=== PATIENT | female | born 1935 | race Caucasian/White ===

== ENCOUNTER 2016-10-31 14:39 | Inpatient (IN) | payer MEDICARE ==
[2016-10-31] MEDS ORDERED: SODIUM CHLORIDE 0.9% 500 ML IV STA (14:47)
[2016-10-31] MEDS ORDERED: MORPHINE SULFATE 4 MG/ML SYRINGE IV STA (14:47)
[2016-10-31] MEDS ORDERED: IV VANCOMYCIN PER PHARMACY 1 EACH MISC MISCELLANE PRN (14:47)
[2016-10-31] MEDS ORDERED: SODIUM CHLORIDE 0.9% 1,000 ML IV STA ×2 (14:47)
--- NOTE | 2016-10-31 15:04 | ED ---
General Adult HPI - General Stated complaint: fall Source: RN notes reviewed, old records reviewed - History of Present Illness Initial comments: This is a 81-year-old female to the ER for evaluation. The patient comes here for evaluation of bilateral lower extremity infection, pus or drainage, and follow-up. Weakness. Neighbors concern over patient's general well being and general activity level - Related Data Home Medications Medication Instructions Recorded Confirmed No Known Home Medications [No 10/31/16 10/31/16 Known Home Medications] Allergies Allergy/AdvReac Type Severity Reaction Status Date / Time No Known Allergies Allergy Verified 10/31/16 16:29 Review of Systems ROS Statement: Those systems with pertinent positive or pertinent negative responses have been documented in the HPI. ROS Other: All systems not noted in ROS Statement are negative. Past Medical History Past Medical History: Pneumonia Additional Past Medical History / Comment(s): prolapsed rectum-since january 2003 , leg sores since 2002 History of Any Multi-Drug Resistant Organisms: None Reported Past Surgical History: Hysterectomy Past Anesthesia/Blood Transfusion Reactions: No Reported Reaction Past Psychological History: No Psychological Hx Reported Smoking Status: Former smoker Past Alcohol Use History: None Reported Past Drug Use History: None Reported General Exam Limitations: altered mental status General appearance: alert, anxious, lethargic, in distress, cachectic Head exam: Present: atraumatic, normocephalic, normal inspection Eye exam: Present: normal appearance, PERRL, EOMI. Absent: scleral icterus, conjunctival injection, periorbital swelling ENT exam: Present: normal exam, mucous membranes moist Neck exam: Present: normal inspection. Absent: tenderness, meningismus, lymphadenopathy Respiratory exam: Present: normal lung sounds bilaterally. Absent: respiratory distress, wheezes, rales, rhonchi, stridor Cardiovascular Exam: Present: regular rate, normal rhythm, normal heart sounds. Absent: systolic murmur, diastolic murmur, rubs, gallop, clicks GI/Abdominal exam: Present: soft, normal bowel sounds. Absent: distended, tenderness, guarding, rebound, rigid Extremities exam: Present: normal inspection, full ROM, normal capillary refill. Absent: tenderness, pedal edema, joint swelling, calf tenderness Back exam: Present: normal inspection Neurological exam: Present: alert, oriented X3, CN II-XII intact Psychiatric exam: Present: normal affect, normal mood Skin exam: Present: warm, dry, intact, normal color. Absent: rash Course Vital Signs 10/31/16 10/31/16 10/31/16 15:39 16:40 17:03 Temperature 96.2 F L Pulse Rate 108 H 96 91 Respiratory 16 18 18 Rate Blood Pressure 122/52 96/55 138/66 O2 Sat by Pulse 96 99 Oximetry - Reevaluation(s) Reevaluation #1: 10/31/16 17:40 Patient with no real clinical improvement Reevaluation #2: 10/31/16 17:43 Patient had been refusing all treatment for both lower extremity infections as well as all medical issues. Medical Decision Making - Medical Decision Making He female here for evaluation of weakness, fall. Patient severely cachectic malnourished, patient does have rectal prolapse on exam, severe. Patient also noted to be dehydrated with acute renal failure, will be admitted for IV hydration - Lab Data Result diagrams: 10/31/16 15:25 10/31/16 15:25 - Radiology Data Radiology results: report reviewed (X-ray pelvis, x-ray abdominal series the chest is negative for acute disease), image reviewed Disposition Clinical Impression: Rectal prolapse, Fall, Weakness, ARF (acute renal failure) Disposition: ADMITTED IP TO THIS [facility] Condition: Serious
[2016-10-31] MEDS ORDERED: VANCOMYCIN 1,500 MG in SODIUM CHLORIDE 0.9% 250 ML IVPB STA (15:05)
[2016-10-31 15:42] LABS: Basophils # (A) 0.1 k/uL (0-0.2); Basophils % (A) 0 %; CH 31.1; CHCM 33.4; Eosinophils % (A) 0 %; HDW 2.52; HGB 13.8 gm/dL (11.4-16.0); Luc % (Auto) 1; Lymphocytes # (A) 0.5 k/uL (1.0-4.8); Lymphocytes % (A) 4 %; MCH 29.3 pg (25.0-35.0); MCHC 31.4 g/dL (31.0-37.0); MCV 93.3 fL (80.0-100.0); Mean Platelet Volume 7.2; Monocytes # (A) 0.7 k/uL (0-1.0); Monocytes % (A) 5 %; Neutrophils # (A) 12.1 k/uL (1.3-7.7); Neutrophils % (A) 90 %; RBC 4.72 m/uL (3.80-5.40); RDW 13.3 % (11.5-15.5); WBC 13.4 k/uL (3.8-10.6); WBC (Perox) 14.25
[2016-10-31 15:55] LABS: Calcium 9.2 mg/dL (8.4-10.2); Magnesium 2.4 mg/dL (1.6-2.3); Partial Thromboplastin Time 24.4 sec (22.0-30.0); Phosphorous 5.9 mg/dL (2.5-4.5); Prothrombin Time 10.3 sec (9.0-12.0); Total Bilirubin 0.3 mg/dL (0.2-1.3); Total Protein 6.9 g/dL (6.3-8.2)
[2016-10-31 16:07] LABS: Creatine Kinase 436 U/L (30-135)
[2016-10-31 16:19] LABS: Troponin I <0.012 ng/mL (0.000-0.034)
[2016-10-31 16:21] LABS: Creatine Kinase MB 12.8 ng/mL (0.0-2.4)
--- NOTE | 2016-10-31 17:08 | XR ---
EXAMINATION TYPE: XR abdomen acute w cxr DATE OF EXAM: 10/31/2016 4:32 PM COMPARISON: NONE HISTORY: Abdominal pain TECHNIQUE: Single view of the chest and 2 views of the abdomen are submitted. FINDINGS: There is no sign of intestinal obstruction or pneumoperitoneum. Fecal pattern is normal. Heart is enl arged. There is no heart failure. There is coarsening of interstitial markings. IMPRESSION: Mild bony fibrosis. Nonacute abdomen.
--- NOTE | 2016-10-31 17:09 | XR ---
EXAMINATION TYPE: XR pelvis AP view DATE OF EXAM: 10/31/2016 4:32 PM COMPARISON: NONE HISTORY: Falls. Pain. TECHNIQUE: Single view FINDINGS: Bones are osteopenic. Pelvic ring is intact. There is spurring of the right femoral head. S acroiliac joints are normal. 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 No fracture seen.
[2016-10-31] MEDS ORDERED: MORPHINE SULFATE 4 MG/ML SYRINGE IVP PRN (17:45)
[2016-10-31] MEDS ORDERED: LORazepam 2 MG/ML SYRINGE IV PRN (17:45)
[2016-10-31 17:57] LABS: Amorphous Sediment,Urine Occasional /hpf; Appearance,Urine Cloudy (Clear); Bacteria,Urine Many /hpf; Bilirubin,Urine Negative (Negative); Glucose,Urine (UA) Negative (Negative); Ketones,Urine Negative (Negative); Leukocyte Esterase,Urine Moderate (Negative); Mucus,Urine Moderate /hpf; Nitrite,Urine Negative (Negative); Particle Count 58057; Protein,Urine Trace (Negative); RBC,Urine 2 /hpf (0-5); Specific Gravity,Urine 1.014 (1.001-1.035); UA Billing (MACRO vs. MICRO) MICRO; Urobilinogen,Urine <2.0 mg/dL (<2.0); WBC,Urine 24 /hpf (0-5)
--- NOTE | 2016-11-01 10:17 | P.GSCN ---
History of Present Illness History of present illness: 81-year-old white female, patient has been admitted to [facility] patient was brought into the hospital hospital by the neighbor's she has marked cellulitis and redness of both lower extremity for a long period of time out into the issue she told me that she has been refusing all the doctors for treatment patient is a poor historian Past history patient has history of pneumonia in the past she also has a prolapsed rectum since 2002 Personal history history of smoking in the past Patient went was seen in her in her room she is been complaining of pain in both lower extremity Neck examination neck is supple no bruit appreciated Chest examination chest is clear auscultation first and second sound normal Abdomen soft nontender Vascular examination femorals are 1+ patient has a marked cellulitis of the lower extremity involving both lower legs and there is a marked redness and superficial ulceration noted bilateral Plan is a we will have a opinion from infectious disease patient will be needing possible amputation of the toes and possible major amputation we will discuss with the family in the meantime continue with Past Medical History Past Medical History: Pneumonia Additional Past Medical History / Comment(s): prolapsed rectum-since january 2003 , leg sores since 2002 History of Any Multi-Drug Resistant Organisms: None Reported Past Surgical History: Hysterectomy Past Anesthesia/Blood Transfusion Reactions: No Reported Reaction Past Psychological History: No Psychological Hx Reported Smoking Status: Former smoker Past Alcohol Use History: None Reported Past Drug Use History: None Reported Medications and Allergies Home Medications Medication Instructions Recorded Confirmed Type No Known Home Medications [No 10/31/16 10/31/16 History Known Home Medications] Allergies Allergy/AdvReac Type Severity Reaction Status Date / Time No Known Allergies Allergy Verified 10/31/16 16:29 Surgical - Exam Vital Signs Temp Pulse Resp BP 96.2 F L 108 H 16 122/52 10/31/16 15:39 10/31/16 15:39 10/31/16 15:39 10/31/16 15:39 Results - Labs 10/31/16 15:25 10/31/16 15:25 Abnormal Lab Results - Last 24 Hours (Table) 10/31/16 10/31/16 10/31/16 Range/Units 15:25 15:25 15:25 WBC 13.4 H (3.8-10.6) k/uL Plt Count 506 H (150-450) k/uL Neutrophils # 12.1 H (1.3-7.7) k/uL Lymphocytes # 0.5 L (1.0-4.8) k/uL Sodium 136 L (137-145) mmol/L Carbon Dioxide 18 L (22-30) mmol/L BUN 63 H (7-17) mg/dL Creatinine 1.40 H (0.52-1.04) mg/dL Glucose 101 H (74-99) mg/dL Phosphorus 5.9 H (2.5-4.5) mg/dL Magnesium 2.4 H (1.6-2.3) mg/dL AST 41 H (14-36) U/L Total Creatine Kinase 436 H (30-135) U/L CK-MB (CK-2) 12.8 H* (0.0-2.4) ng/mL Albumin 3.3 L (3.5-5.0) g/dL Urine Appearance (Clear) Urine Protein (Negative) Urine Blood (Negative) Ur Leukocyte Esterase (Negative) Urine WBC (0-5) /hpf Amorphous Sediment (None) /hpf Urine Bacteria (None) /hpf Hyaline Casts (0-2) /lpf Urine Mucus (None) /hpf 10/31/16 Range/Units 17:25 WBC (3.8-10.6) k/uL Plt Count (150-450) k/uL Neutrophils # (1.3-7.7) k/uL Lymphocytes # (1.0-4.8) k/uL Sodium (137-145) mmol/L Carbon Dioxide (22-30) mmol/L BUN (7-17) mg/dL Creatinine (0.52-1.04) mg/dL Glucose (74-99) mg/dL Phosphorus (2.5-4.5) mg/dL Magnesium (1.6-2.3) mg/dL AST (14-36) U/L Total Creatine Kinase (30-135) U/L CK-MB (CK-2) (0.0-2.4) ng/mL Albumin (3.5-5.0) g/dL Urine Appearance Cloudy H (Clear) Urine Protein Trace H (Negative) Urine Blood Small H (Negative) Ur Leukocyte Esterase Moderate H (Negative) Urine WBC 24 H (0-5) /hpf Amorphous Sediment Occasional H (None) /hpf Urine Bacteria Many H (None) /hpf Hyaline Casts 143 H (0-2) /lpf Urine Mucus Moderate H (None) /hpf Microbiology - Last 24 Hours (Table) 10/31/16 17:25 Urine Culture - Preliminary Urine,Voided Diabetes panel 10/31/16 Range/Units 15:25 Sodium 136 L (137-145) mmol/L Potassium 5.0 (3.5-5.1) mmol/L Chloride 103 (98-107) mmol/L Carbon Dioxide 18 L (22-30) mmol/L BUN 63 H (7-17) mg/dL Creatinine 1.40 H (0.52-1.04) mg/dL Glucose 101 H (74-99) mg/dL Calcium 9.2 (8.4-10.2) mg/dL AST 41 H (14-36) U/L ALT 32 (9-52) U/L Alkaline Phosphatase 76 (38-126) U/L Total Protein 6.9 (6.3-8.2) g/dL Albumin 3.3 L (3.5-5.0) g/dL Calcium panel 10/31/16 Range/Units 15:25 Calcium 9.2 (8.4-10.2) mg/dL Phosphorus 5.9 H (2.5-4.5) mg/dL Albumin 3.3 L (3.5-5.0) g/dL Pituitary panel 10/31/16 Range/Units 15:25 Sodium 136 L (137-145) mmol/L Potassium 5.0 (3.5-5.1) mmol/L Chloride 103 (98-107) mmol/L Carbon Dioxide 18 L (22-30) mmol/L BUN 63 H (7-17) mg/dL Creatinine 1.40 H (0.52-1.04) mg/dL Glucose 101 H (74-99) mg/dL Calcium 9.2 (8.4-10.2) mg/dL Adrenal panel 10/31/16 Range/Units 15:25 Sodium 136 L (137-145) mmol/L Potassium 5.0 (3.5-5.1) mmol/L Chloride 103 (98-107) mmol/L Carbon Dioxide 18 L (22-30) mmol/L BUN 63 H (7-17) mg/dL Creatinine 1.40 H (0.52-1.04) mg/dL Glucose 101 H (74-99) mg/dL Calcium 9.2 (8.4-10.2) mg/dL Total Bilirubin 0.3 (0.2-1.3) mg/dL AST 41 H (14-36) U/L ALT 32 (9-52) U/L Alkaline Phosphatase 76 (38-126) U/L Total Protein 6.9 (6.3-8.2) g/dL Albumin 3.3 L (3.5-5.0) g/dL
[2016-11-01] MEDS ORDERED: IV VANCOMYCIN PER PHARMACY 1 EACH MISC MISCELLANE PRN (10:52)
[2016-11-01 12:56] VITALS: BMI 16.5
--- NOTE | 2016-11-01 12:57 | CONS ---
DATE OF CONSULTATION: 10/31/2016 REASON FOR CONSULTATION: Rectal prolapse. HISTORY: The patient is an 81-year-old female who was brought in to the emergency room by family for recurrent falling. She reportedly fell once earlier in the week and did land on her rectum per daughter. She had fallen this morning and then when the daughter went to recheck on her, she had fallen again this afternoon and so was brought into the emergency department. She has had known rectal prolapse for approximately 10 years. She has been seen by a surgeon in the past and has refused any surgery. Evidently the bowel functions have been normal for her. There has been no rectal bleeding. No complaints of abdominal pain. Past medical history includes the rectal prolapse, pneumonia, chronic cellulitis of the legs for which she has refused antibiotics in the past. PAST SURGICAL HISTORY: Hysterectomy. MEDICATIONS CURRENTLY: 1. Lorazepam p.r.n. 2. Vancomycin. 3. Morphine sulfate p.r.n. 4. She received a dose of ceftriaxone. ALLERGIES: None. SOCIAL: No tobacco or alcohol use. FAMILY HISTORY: Noncontributory. PHYSICAL EXAM: Elderly female; alert, in no distress, appears chronically ill, appears to have some significant stiffness in upper and lower extremities. She is afebrile. Pulse 91, respirations 18, blood pressure is 138/66. ABDOMEN: Soft, nontender. Positive bowel sounds. RECTAL: She has full-thickness rectal prolapse, approximately 8 cm to 10 cm in length with some superficial mucosal ulceration or trauma. No evidence of bleeding. Family says this is the normal state this has been for the last 10 years. ASSESSMENT: Rectal prolapse for which the patient has refused surgery in the past. PLAN: Notify us if the patient changes her mind about surgery. I did speak to the daughter and she states she knows her mother is not interested in any surgical intervention at this time.
--- NOTE | 2016-11-01 13:23 | XR ---
EXAMINATION TYPE: XR chest 1V DATE OF EXAM: 11/01/2016 1:02 PM COMPARISON: 10/31/2016 HISTORY: 81-year-old female cough, rule out pneumonia TECHNIQUE: Single frontal view of the chest is obtained. FINDINGS: Heart remains borderline enlarged. Atherosclerotic arch calcifications. Ulnar vasculature within norm al limits. Apical pleural-parenchymal scarring redemonstrated. Hyperinflation with diffuse interstiti al prominence. There is new right basilar opacity. No other consolidation seen. IMPRESSION: COPD with new right basilar opacity that could represent early infiltrate.
[2016-11-01] MEDS: SODIUM CHLORIDE 0.9% 1,000 ML IV SCH (13:44)
--- NOTE | 2016-11-01 15:17 | HP ---
DATE OF ADMISSION: 10/31/2016 Patient is an 81-year-old female who does not take any medications, was at one point of time last year was made hospice. Lives by herself, mostly bedbound and patient is unable to ambulate because of extensive infection of bilateral lower limbs and extensive cellulitis with extensive skin breakdown of bilateral lower limbs extending up to almost 2 cm below the knee bilaterally with redness and most of this infection is probably incurable and require extensive wound care, was brought in by the neighbors. Her son [place] [facility]. Patient has been apparently weak. She denied any fever, chills, cough. Patient is definitely significantly dehydrated. Patient was started on IV fluids and started on IV fluids. Patient is a poor historian but does give any good history. Does not appear to be significantly demented at this time. Very poor functionality. We are getting PT and OT to evaluate the patient as well and patient may need placement in a senior living or subacute rehabilitation. Patient was evaluated by Dr. Ernesto Quezada and Dr. Marisol Castro for wound care. On exam, the patient was having some diffuse abdominal nonspecific abdominal tenderness, abdominal ultrasound was done which was essentially negative. I will start her on Protonix. Patient is on vancomycin IV and patient was started on Unasyn as well to cover the gram-negatives which she might as well have. Review of systems pretty much limited except for those mentioned above. PAST MEDICAL HISTORY: Significant for pneumonias in the past. Patient at one point of time was made hospice, hysterectomy in the past. SOCIAL HISTORY: Former smoker. No other history is available. FAMILY HISTORY: Unknown. Not obtainable or relevant at this point of time. PHYSICAL EXAMINATION: VITAL SIGNS: Temperature 98.0, pulse of 94, respiratory rate of 16, blood pressure is 97/55, saturating at 97% on 2 liters of O2 nasal cannula. GENERAL: The patient is alert and oriented x3, not in any acute distress. Well developed, well nourished. HEENT: Pupils are round and equally reacting to light. EOMI. No scleral icterus. No conjunctival pallor. Normocephalic, atraumatic. No pharyngeal erythema. No thyromegaly. CARDIOVASCULAR: S1 and S2 present. No murmurs, rubs, or gallops. PULMONARY: Chest is clear to auscultation, no wheezing or crackles. ABDOMEN: As mentioned above. Patient has mild diffuse tenderness all over the abdomen and no rebound or rigidity. Patient abdomen is fairly soft. EXTREMITIES: Extremities as mentioned in the interval history. Bilateral extensive ulcerations of bilateral lower limbs. MUSCULOSKELETAL: No joint swelling or deformity. NEUROLOGICAL: Gross neurological examination did not reveal any focal deficits. SKIN: No rashes. LABORATORY DATA: CBC, CMP are abnormal for WBC count of 13,400, BUN of 60, creatinine is 1.4. Her baseline creatinine, because the patient is severely cachectic, which I failed to dictate earlier, should be around 0.2 and lactic acid is 1.6, urine is cloudy. Trace protein. Moderate leukocyte esterase. 24 WBC, hyaline casts. There is no chest x-ray but pelvic and abdominal x-ray no significant abnormality. I will obtain a chest x-ray to rule out any pneumonic process, although my suspicion is low for that. ASSESSMENT AND PLAN: 1. Extensive ulcerations of the bilateral lower limbs and cellulitis and sepsis secondary to that and patient was started on broad-spectrum antibiotics. Would cultures were obtained. Blood cultures were obtained. Infectious disease was already consulted, Dr. Quezada was consulted as well although conservative care is probably appropriate in her situation because of the poor functionality and I will discuss with the family members. 2. Anion gap metabolic acidosis secondary to probably lactic acidosis. 3. Acute renal failure secondary to intravascular volume depletion. Patient will be started on IV fluids. 4. Patient probably has symptomatic bacteria. 5. Thrombocytosis appears to be reactive secondary to sepsis and poor functionality. We will obtain PT and OT consultation. Patient will most probably will need placement in the subacute rehab or senior living.
[2016-11-01] MEDS: COLLAGENASE 250 UNIT/GM OINTMENT 30 GM TUBE TOPICAL SCH (15:20)
[2016-11-01] MEDS ORDERED: AMPICILLIN-SULBACTAM 3 GM in SODIUM CHLORIDE 0.9% 100 ML IVPB SCH (16:00)
--- NOTE | 2016-11-01 16:18 | CONS ---
DATE OF CONSULTATION: 11/01/2016 REASON FOR CONSULTATION: Lower extremity wound and cellulitis. HISTORY OF PRESENT ILLNESS: The patient is an 81 -year-old female who has been brought into the ER by the neighbors concerned regarding her care. The patient has decreased level of activity and apparently the patient did have a chronic wound on her right leg. The patient has been applying ointment / honey at home. The patient subsequently has been evaluated by the ER physician has been diagnosed with cellulitis and wound infection has been admitted to the hospital on Unasyn and Vanco. ID was consulted for further recommendation regarding antibiotic therapy. Patient at this time has been complaining of pain in leg but unable to characterize it further. She has been resisting changing her dressing also specific for what to apply , she denies any chest pain or shortness of breath or cough and no abdominal pain. Not a good historian . Most of the information has been obtained from review the chart and nursing staff. Patient has been evaluated by vascular surgery for possible amputation and recommended ID consultation. Apparently, the patient[place] later this evening per the R.N. Review of systems could not be reliably obtained. The positive points has been mentioned in the HPI. PAST MEDICAL HISTORY: Significant for pneumonia and a chronic nonhealing wound to the leg . PAST SURGICAL HISTORY: Hysterectomy. SOCIAL HISTORY: Remote history of smoking. No drinking or drug use. FAMILY HISTORY: Unobtainable. ALLERGIES: No known drug allergies. Medications currently include the patient is on: 1. Tylenol. 2. Unasyn. 3. Vancomycin. 4. Protonix. On examination, blood pressure is 95/55 with a pulse of 94, temperature 98. She is 97% on 2 liters nasal cannula. General description is an elderly female lying in bed in no distress. No tachypnea or accessory muscle of respiration use. HEENT examination shows no pallor or scleral icterus. Oral mucous membrane dry. NECK: Trachea central. No thyromegaly. LUNGS: Unlabored breathing. Clear to auscultation anteriorly. HEART: S1, S2 regular rate and rhythm. ABDOMEN: Soft, no tenderness. Right leg did have wounds on the dorsum of the right foot with some purulent material and some surrounding redness. Left leg with erythema and dry scaly skin. NEUROLOGICAL: The patient is weak however, orientation could not be determined. LABS: Hemoglobin is 13.3, WBC count 13.4 with a BUN of 53, creatinine 01.40. Urine has been positive. DIAGNOSTIC IMPRESSION AND PLAN: Patient with extensive wounds to the right leg with likely underlying ischemia in a patient with previous history of smoking with secondary cellulitis overall poor hygiene. In view of the extensive wounds, I clinically doubt medical therapy will be even to heal them up. The patient needs work-up, possibly angiogram to see the extent of her underlying periphral arterial disease, who is planning surgery, as far as the infection part, we will need to cover for the gram positive skin marcus. PLAN: 1. Vancomycin pharmacy to dose with a target trough of 15, watching kidney function closely and Unasyn will provide adequate coverage. 2. Will apply Santyl to the wound with slough tissue and moist dressing to the dry scaly skin. 3. Follow up on the clinical condition and cultures to further adjust the medication if needed. Thank you for this consultation. Will follow this patient along with you. LUBA
[2016-11-02] MEDS: SODIUM CHLORIDE 0.9% 1,000 ML IV SCH ×4 (01:35→11:17)
[2016-11-02] MEDS: ACETAMINOPHEN TAB 325 MG TAB PO PRN ×2 (02:12→08:39)
[2016-11-02] MEDS: AMPICILLIN-SULBACTAM 3 GM in SODIUM CHLORIDE 0.9% 100 ML IVPB SCH ×2 (05:22→18:12)
[2016-11-02 07:39] LABS: Non-African American GFR(MDRD) >60 (>60 ml/min/1.73 sqM)
[2016-11-02] MEDS: PANTOPRAZOLE 40 MG TABLET PO SCH (08:39)
--- NOTE | 2016-11-02 10:51 | FL ---
EXAMINATION TYPE: FL barium swallow w video DATE OF EXAM: 11/02/2016 10:15 AM COMPARISON: NONE HISTORY: Coughing at bedside modified barium swallow exam TECHNIQUE: Modified barium swallow FINDINGS: Silent aspiration was present with thin liquids. Patient swallowed large volumes during the exam. With the chin tuck method no aspiration was observed. No penetration was observed. Remaining c onsistencies were swallowed without aspiration or penetration. Note is made of residuals within the v allecula during the exam. Please see complete report forthcoming from the speech pathology department. 3 minutes 15 seconds of fluoroscopy time was provided for the procedure. IMPRESSION: 1. Aspiration with thin liquids. 2. Residuals within the vallecula.
[2016-11-02] MEDS: KETOROLAC 30 MG/ML 1 ML VIAL IVP PRN (11:27)
[2016-11-02] MEDS: COLLAGENASE 250 UNIT/GM OINTMENT 30 GM TUBE TOPICAL SCH (11:31)
[2016-11-02] MEDS ORDERED: VANCOMYCIN 750 MG in SODIUM CHLORIDE 0.9% 250 ML IVPB ONE (12:00)
--- NOTE | 2016-11-02 14:03 | PN ---
Patient is an 81-year-old admitted for bilateral lower limb extensive infection and extensive wounds, which are requiring amputation, but patient in the past declined and will continue with antibiotics today. Will discuss with the patient tomorrow. Extensive discussion of her overall goals of care and overall care with her son who is fortunately a physician and we are continuing with IV fluids, wound cultures. Dr. Jiménez was consulted. Patient was also treated for acute renal failure due to intravascular volume depletion from poor oral intact. After IV fluid hydration, patient improved significantly, clinically and his creatinine has come down from 1.4 to 0.9. Continue with IV fluid resuscitation. Patient failed swallow evaluation. Speech evaluated the patient and we are modifying the diet a little bit to soft diet and honey-thickened liquids. Patient is much more awake today. REVIEW OF SYSTEMS: CARDIOVASCULAR: No chest pain, no orthopnea, no PND, no palpitations. PULMONARY: Denied any shortness of breath. No cough or hemoptysis. GASTROINTESTINAL: No diarrhea, nausea or vomiting. No abdominal pain. Normoactive bowel sounds. NEUROLOGIC: No headaches, no weakness, no numbness. EXTREMITIES: Patient is complaining of severe pain. Patient's abdominal pain completely resolved. PHYSICAL EXAMINATION: VITAL SIGNS: Temperature 97.6, pulse of 66, respiratory rate of 16, blood pressure 90/37, saturating at 98% on room air. GENERAL: Patient is thin built, cachectic female. Alert and oriented x2 to 3. HEENT: Pupils are round and equally reacting to light. EOMI. No scleral icterus. No conjunctival pallor. Normocephalic, atraumatic. No pharyngeal erythema. No thyromegaly. CARDIOVASCULAR: S1 and S2 present. No murmurs, rubs, or gallops. PULMONARY: Chest is clear to auscultation, no wheezing or crackles. ABDOMEN: Soft, nontender, nondistended, normoactive bowel sounds. No palpable organomegaly. MUSCULOSKELETAL: No joint swelling or deformity. NEUROLOGICAL: Gross neurological examination did not reveal any focal deficits. SKIN: No rashes. EXTREMITIES: No significant change compared to yesterday. LABORATORY DATA: Only creatinine is available today, which is 0.9. ASSESSMENT AND PLAN: 1. Extensive ulcerations, bilateral lower limb cellulitis and infection and sepsis secondary to that. Antibiotics as mentioned above. Patient in the past declined amputation procedure. 2. Acute renal failure secondary to severe intravascular volume depletion, improved and will continue with IV fluids. 3. Possible asymptomatic bacteruria versus urinary tract infection, antibiotics she is on should cover that and Infectious Disease following the patient as well. 4. Thrombocytosis secondary to a reactive response from sepsis, poor functionality. 5 severe Protein carlorie malnutrition PLAN: As mentioned above. MTDD
--- NOTE | 2016-11-02 16:27 | PN ---
DATE OF SERVICE: 11/02/2016 REASON FOR FOLLOWUP: Bilateral lower extremity wound and cellulitis. INTERVAL HISTORY: The patient is afebrile. She has been breathing comfortably, hemodynamically stable. Still has pain on slight movement of her legs. She is unable to provide any history. On examination, blood pressure is 98/44 with a pulse of 66, temperature 97.6. She is 98% on 2 L nasal cannula. General description is an elderly female lying in bed in no distress. Examination of the right foot toes less slightly inflamed with the wound and some drainage on the dressing. Dressing could not be taken off because of the pain that is involved. LABS: Creatinine is 0.90. Blood cultures so far negative. DIAGNOSTIC IMPRESSION AND PLAN: Patient with a non-healing wound to her right leg which has been there for a couple of years now, as per the son, who provided most of the history. The patient also has significant history of smoking, likely arterial ulcer with some secondary cellulitis. Continue local wound care with the Santyl and antibiotic therapy in the form of vancomycin and Unasyn. Son was present at beside. All of his questions and concerns were answered. Overall prognosis remains poor. MTDD
[2016-11-03] MEDS: KETOROLAC 30 MG/ML 1 ML VIAL IVP PRN ×2 (00:57→09:08)
[2016-11-03] MEDS: SODIUM CHLORIDE 0.9% 1,000 ML IV SCH (04:10)
[2016-11-03] MEDS: AMPICILLIN-SULBACTAM 3 GM in SODIUM CHLORIDE 0.9% 100 ML IVPB SCH ×2 (05:45→17:14)
[2016-11-03 07:53] LABS: CH 29.9; CHCM 32.1; HCT 32.2 % (34.0-46.0); MCH 30.6 pg (25.0-35.0); MCHC 32.6 g/dL (31.0-37.0); MCV 93.9 fL (80.0-100.0); Mean Platelet Volume 6.7; RBC 3.43 m/uL (3.80-5.40); RDW 13.7 % (11.5-15.5); WBC 8.9 k/uL (3.8-10.6)
[2016-11-03 08:04] LABS: HGB 10.5 gm/dL (11.4-16.0)
[2016-11-03 08:16] LABS: Calcium 7.2 mg/dL (8.4-10.2); Potassium 3.9 mmol/L (3.5-5.1)
[2016-11-03] MEDS: VANCOMYCIN 750 MG in SODIUM CHLORIDE 0.9% 250 ML IVPB SCH (08:58)
[2016-11-03] MEDS: PANTOPRAZOLE 40 MG TABLET PO SCH (08:59)
[2016-11-03] MEDS: ACETAMINOPHEN TAB 325 MG TAB PO PRN (09:06)
[2016-11-03] MEDS: COLLAGENASE 250 UNIT/GM OINTMENT 30 GM TUBE TOPICAL SCH (09:09)
--- NOTE | 2016-11-03 10:35 | CDI ---
In responding to this query, please exercise your independent professional judgment. The [facility] Coding Staff and Clinical Documentation Specialists appreciate your assistance in clarifying documentation, maintaining compliance with coding guidelines, accurately documenting patients condition and capturing severity of illness. The fact that a question is asked does not imply that any particular answer is desired or expected. Communication forms are a method of clarifying documentation and are not made part of the Legal Health Record. Thank you in advance for your clarification. Last Revision, September 2015 Binu Starkey [address] [facility] [place] [address] Documentation Clarification Form Date: 11/03/2016 10:19:00 AM From: Lashae Sandoval Admit Date: 10/31/2016 3:09:00 PM Patient Name: Beatriz Call Visit Number: [id number] Dr. Gerardo Rasheed Patient is described as Cachectic per H&P and progress note. History/Risk Factors: Bedbound, unable to ambulate Extensive infection bilateral lower limbs Dehydrated Poor functionality Lives alone Clinical Indicators: Labs: albumin 3.3, total protein 6.9 Current BMI: 16.5 Lethargic, underweight per [employer] Per swallow eval: silent aspiration with thin liquids Treatment: Dietary Consult [place] Thick Liquids on regular diet PT/OT Consult Supplements to be ordered per resistance welder as diet advances In your professional opinion, can you please clarify if these findings signify one of the following conditions? Mild Protein-Calorie Malnutrition Moderate Protein-Calorie Malnutrition Severe Protein-Calorie Malnutrition Other condition, please specify Unable to determine Please document in your progress notes and discharge summary in order to capture severity of illness and risk of mortality. Include clinical findings that support your diagnosis. FYI: Press F11 to launch patient chart. Place X here if this finding has no clinical significance, is not applicable or if you are not able to provide any additional documentation. JOSE LUISD
[2016-11-03] MEDS: SODIUM CHLORIDE 0.45% 1,000 ML IV SCH (11:36)
--- NOTE | 2016-11-03 14:24 | PN ---
Patient is an 81-year-old year-old with bilateral lower extremity wounds and patient is declining any surgical intervention at this point. Patient is on broad-spectrum antibiotics, urine cultures are positive for E. coli and patient is on Zosyn and vancomycin at this point of time. I discussed with the patient regarding her overall goals of care and I discussed regarding going to a subacute rehabilitation and I will request one of the case mangers to have a talk with her regarding disposition to subacute rehabilitation. Patient cannot go home as she cannot take care of herself because of the poor functionality. REVIEW OF SYSTEMS: CARDIOVASCULAR: No chest pain, no orthopnea, no PND, no palpitations. PULMONARY: Denied any shortness of breath. No cough or hemoptysis. GASTROINTESTINAL: No diarrhea, nausea or vomiting. No abdominal pain. Normoactive bowel sounds. NEUROLOGIC: No headaches, no weakness, no numbness. Medications were reviewed and medication changes IV fluids will be changed to half-normal saline because of hypernatremia and hyperchloremia. PHYSICAL EXAMINATION: Temperature 97.8, pulse of 66, respiratory rate of 16, blood pressure is 94/51, saturating at 98% on 2 L of O2 by nasal cannula. GENERAL: Elderly female, alert and oriented x3. EXTREMITIES: No significant change compared to yesterday. HEENT: Pupils are round and equally reacting to light. EOMI. No scleral icterus. No conjunctival pallor. Normocephalic, atraumatic. No pharyngeal erythema. No thyromegaly. CARDIOVASCULAR: S1 and S2 present. No murmurs, rubs, or gallops. PULMONARY: Chest is clear to auscultation, no wheezing or crackles. ABDOMEN: Soft, nontender, nondistended, normoactive bowel sounds. No palpable organomegaly. MUSCULOSKELETAL: No joint swelling or deformity. NEUROLOGICAL: Gross neurological examination did not reveal any focal deficits. SKIN: No rashes. LABORATORY DATA: Significant ones, hemoglobin is 10.5 without any acute signs or symptoms of bleed and hemodilution effect. Sodium is 146 and chloride is 117, due to IV normal saline and creatinine is 1.08. ASSESSMENT AND PLAN: 1. Extensive ulcerations bilateral lower limb and cellulitis with sepsis secondary to that, which is improving. Patient is on broad-spectrum antibiotics. Conservative management and local wound care and Infectious Disease is following the patient and acute renal failure secondary to severe intravascular volume depletion. Continue with IV fluids and IV fluid changes as mentioned above. 2. Asymptomatic bacteria versus urinary tract infection. Antibiotics she is on should help with that thrombocytosis, which appears to be reactive in nature, leukocytosis improved. 3. A poor functionality and disposition status as mentioned above.
--- NOTE | 2016-11-03 23:19 | PN ---
DATE OF SERVICE: 11/03/2016 REASON FOR FOLLOWUP: Bilateral lower extremity wounds and cellulitis. INTERVAL HISTORY: The patient is afebrile. She seems to be slightly more awake and alert, breathing comfortably. No nausea, vomiting or any diarrhea. On examination, blood pressure is 109/55 with a pulse of 85, temperature 97.7. She is 93% on room air. General description is an elderly female lying in bed in no distress. RESPIRATORY SYSTEM: Unlabored breathing. Clear to auscultation anteriorly. HEART: S1, S2. Regular rate and rhythm. ABDOMEN: Soft. No tenderness. Leg wounds are currently dressed up. LABS: Hemoglobin 10.4, white count 8.9. Urine is showing E coli. Blood culture negative so far. DIAGNOSTIC IMPRESSION AND PLAN: Patient with bilateral lower extremity wounds and cellulitis, right more than the left, with underlying PAD. Patient at this time will continue her broad-spectrum antibiotics in the form of Unasyn and vancomycin. Obtain a vascular surgery evaluation. Continue with Santyl to the wound. Overall prognosis continues to be guarded. Continue supportive care.
[2016-11-04] MEDS: SODIUM CHLORIDE 0.45% 1,000 ML IV SCH ×2 (03:59→15:34)
[2016-11-04] MEDS: AMPICILLIN-SULBACTAM 3 GM in SODIUM CHLORIDE 0.9% 100 ML IVPB SCH ×2 (06:15→15:27)
[2016-11-04 07:56] LABS: CH 30.1; CHCM 32.7; HCT 34.4 % (34.0-46.0); HGB 10.9 gm/dL (11.4-16.0); MCH 29.2 pg (25.0-35.0); MCHC 31.6 g/dL (31.0-37.0); MCV 92.5 fL (80.0-100.0); Mean Platelet Volume 6.4; RBC 3.71 m/uL (3.80-5.40); RDW 13.7 % (11.5-15.5); WBC 7.5 k/uL (3.8-10.6)
[2016-11-04] MEDS ORDERED: VANCOMYCIN TROUGH DUE 1 EACH MISC MISCELLANE ONE (08:00)
[2016-11-04 08:16] LABS: Anion Gap 9 mmol/L; Blood Urea Nitrogen 33 mg/dL (7-17); Calcium 7.3 mg/dL (8.4-10.2); Carbon Dioxide 21 mmol/L (22-30); Chloride 117 mmol/L (98-107); Glucose 75 mg/dL (74-99); Non-African American GFR(MDRD) >60 (>60 ml/min/1.73 sqM); Potassium 3.7 mmol/L (3.5-5.1); Sodium 147 mmol/L (137-145)
[2016-11-04] MEDS: PANTOPRAZOLE 40 MG TABLET PO SCH (08:27)
[2016-11-04] MEDS: VANCOMYCIN 750 MG in SODIUM CHLORIDE 0.9% 250 ML IVPB SCH (08:28)
[2016-11-04] MEDS: COLLAGENASE 250 UNIT/GM OINTMENT 30 GM TUBE TOPICAL SCH (08:28)
[2016-11-04] MEDS: KETOROLAC 30 MG/ML 1 ML VIAL IVP PRN (09:26)
[2016-11-04] MEDS: ACETAMINOPHEN TAB 325 MG TAB PO PRN (10:44)
[2016-11-04] MEDS: traMADol 50 MG TAB PO PRN (13:48)
[2016-11-05] MEDS: AMPICILLIN-SULBACTAM 3 GM in SODIUM CHLORIDE 0.9% 100 ML IVPB SCH ×3 (00:56→17:35)
[2016-11-05] MEDS: SODIUM CHLORIDE 0.45% 1,000 ML IV SCH ×2 (00:57→16:07)
[2016-11-05] MEDS: KETOROLAC 30 MG/ML 1 ML VIAL IVP PRN (04:33)
[2016-11-05 08:13] LABS: Anion Gap 8 mmol/L; Blood Urea Nitrogen 21 mg/dL (7-17); Calcium 7.1 mg/dL (8.4-10.2); Carbon Dioxide 24 mmol/L (22-30); Chloride 114 mmol/L (98-107); Glucose 70 mg/dL (74-99); Non-African American GFR(MDRD) >60 (>60 ml/min/1.73 sqM); Potassium 3.9 mmol/L (3.5-5.1); Sodium 146 mmol/L (137-145)
[2016-11-05] MEDS: PANTOPRAZOLE 40 MG TABLET PO SCH (08:38)
--- NOTE | 2016-11-05 08:54 | PN ---
The patient is an 81-year-old with significant bilateral lower extremity wounds which will require ( ) amputation, admitted for possibility of such. The patient is on broad-spectrum antibiotics in the form of Unasyn and vancomycin . The patient in the past declined all conventional idiopathic treatments and patient lives by herself. The patient's son is a physician fortunately. The patient is also getting IV hydration with half normal saline. Patient is being controlled with NSAIDs, avoid benzodiazepines, barbiturates, opioids and any anticholinergic medications at this point of time. At this point of time, the patient agreed to go subacute rehabilitation. Patient is agreeable at this point of time for bilateral amputation procedure. Once we get the antibiotic recommendations from Dr. Jiménez, patient probably can be discharged to subacute rehabilitation. Once her nutritional status improves, patient can be brought back for bilateral amputation procedure. The plan was discussed with her son as well. The patient has extremely poor functionality, severely cachetic, severely malnourished, improving kidney function at this time. REVIEW OF SYSTEMS: GENERAL: Patient is complaining of pain in bilateral lower limbs for which she will use Tylenol, tramadol and Toradol as needed. CARDIOVASCULAR: No chest pain, no orthopnea, no PND, no palpitations. PULMONARY: Denied any shortness of breath. No cough or hemoptysis. GASTROINTESTINAL: No diarrhea, nausea or vomiting. No abdominal pain. Normoactive bowel sounds. NEUROLOGIC: No headaches, no weakness, no numbness. Medications were reviewed. Continue with IV fluids and patient is on half normal saline at this point of time. PHYSICAL EXAMINATION: VITAL SIGNS: Temperature 97.7, pulse of 63, respiratory rate 16, blood pressure 130/63, saturating at 95% on room air. GENERAL: The patient is alert and oriented x3, not in any acute distress. Well developed, well nourished. HEENT: Pupils are round and equally reacting to light. EOMI. No scleral icterus. No conjunctival pallor. Normocephalic, atraumatic. No pharyngeal erythema. No thyromegaly. CARDIOVASCULAR: S1 and S2 present. No murmurs, rubs, or gallops. PULMONARY: Chest is clear to auscultation, no wheezing or crackles. ABDOMEN: Soft, nontender, nondistended, normoactive bowel sounds. No palpable organomegaly. MUSCULOSKELETAL: No joint swelling or deformity. EXTREMITIES: Unchanged compared to yesterday. NEUROLOGICAL: Gross neurological examination did not reveal any focal deficits. SKIN: No rashes. LABORATORY DATA: Improved BUN and creatinine to 33 and 0.82. Her baseline creatinine should be around 0.2 to 0.3. Sodium is still elevated at 147. Chloride is 117. ASSESSMENT AND PLAN: 1. Extensive ulcerations bilateral lower limb cellulitis. Patient is on Unasyn and vancomycin, which will be continued. 2. Chronic bacteriuria versus urinary tract infection. 3. Extremely poor functionality. 4. Severe protein calorie malnutrition. PLAN: As mentioned in the interval history.
--- NOTE | 2016-11-05 09:24 | PN ---
DATE OF SERVICE: 11/04/2016 Reason for follow-up is right lower extremity wound and cellulitis. INTERVAL HISTORY: The patient is afebrile. She is relatively more awake, alert, breathing comfortably and denies worsening pain to the leg area. No chest pain or shortness of breath or cough. On examination, blood pressure is 130/63 with a pulse of 53, temperature 97.7. She is 95% on room air. General description is an elderly female, lying in the bed in no distress. RESPIRATORY SYSTEM: Unlabored breathing. Clear to auscultation anteriorly. HEART: S1, S2 with regular rate and rhythm. ABDOMEN: Soft, no tenderness. RIGHT LEG: Right leg wounds with less amount of slough tissue. Surrounding redness has improved. No drainage. LABS: Hemoglobin is 10.1, white count 7.5 with a BUN of 33, creatinine 0.82. DIAGNOSTIC IMPRESSION AND PLAN: Patient with bilateral lower extremity wound and cellulitis, right more than left. The patient is to continue with Unasyn and Vanco, along with local wound care with Audiyl. Family present at bedside. Their questions and concerns were answered.
--- NOTE | 2016-11-05 09:40 | P.PN ---
Progress Note - Text I was called in regards to the rectal prolapse. Phone discussion held with the patients son (Jhonatan) [phone]. The patient appears to now be amenable to surgery for her rectal prolapse. Colon resection with anastamosis isn't a reasonable option at this point as she will not have a functional sphincter due to longstanding complete prolapse. Will prehabilitate and arrange a laparoscopic resection with colostomy formation.
[2016-11-05] MEDS: VANCOMYCIN 750 MG in SODIUM CHLORIDE 0.9% 250 ML IVPB SCH (09:47)
--- NOTE | 2016-11-05 10:16 | CDI ---
In responding to this query, please exercise your independent professional judgment. The [facility] Coding Staff and Clinical Documentation Specialists appreciate your assistance in clarifying documentation, maintaining compliance with coding guidelines, accurately documenting patients condition and capturing severity of illness. The fact that a question is asked does not imply that any particular answer is desired or expected. Communication forms are a method of clarifying documentation and are not made part of the Legal Health Record. Thank you in advance for your clarification. Last Revision, September 2015 Binu Starkey [address] [place] [address] Documentation Clarification Form Date: 11/05/2016 10:01:00 AM From: Lashae Sandoval Admit Date: 10/31/2016 3:09:00 PM Patient Name: Beatriz Call Visit Number: [id number] Dr. Gerardo Rasheed 'Sepsis' is documented in the H&P and your progress note on 11/02 then dropped from dictation. Also documented 'thrombocytosis secondary to a reactive response from sepsis'. History/Risk Factors: Bilateral low leg cellulitis Severe protein calorie malnutrition BMI 16.5 Clinical Indicators: WBC 13.4 on admission Lactic acid: 1.6 on admission Blood cultures: no growth preliminary report Vitals signs on admission: temp 96.2, hr 108 Acute Renal Failure documented on 11/01 and 11/02 Treatment: ID Consult Antibiotics: IV Ampicillin, IV Vancomycin IV fluid with boluses In your professional opinion, can you please clarify if these findings signify one of the following conditions, whether the condition is POA, and cause, if known? Sepsis Ruled In? Sepsis Ruled Out? Unable to determine Please document in your progress notes and discharge summary in order to capture severity of illness and risk of mortality. Include clinical findings that support your diagnosis. FYI: Press F11 to launch patient chart. Place X here if this finding has no clinical significance, is not applicable or if you are not able to provide any additional documentation. No need dictate in every progress note, you can case picker from one. will not dictate what ever is not relevant for that day. LUBA
[2016-11-05] MEDS: COLLAGENASE 250 UNIT/GM OINTMENT 30 GM TUBE TOPICAL SCH (14:00)
--- NOTE | 2016-11-05 14:09 | PN ---
DATE OF SERVICE: 11/05/2016 Reason for follow-up is bilateral leg wound and cellulitis. INTERVAL HISTORY: The patient is afebrile. She has been seen by surgery. I recommend local wound care and no amputation. The patient denies any chest pain, shortness of breath or cough. No pain. in the leg area. On examination, blood pressure is 126/57, pulse of 74, temperature 98.6. She is 93% on room air. General description is an elderly female, lying in bed in no distress. RESPIRATORY SYSTEM: Unlabored breathing. Clear to auscultation anteriorly. HEART: S1, S2 with regular rate and rhythm. ABDOMEN: Soft, no tenderness. Bilateral leg wounds currently dress. No obvious drainage on the dressing. LABS: BUN of 21, creatinine 0.66. Urine with E. coli. Blood culture has been negative. Diagnostic impression and plan: Patient with bilateral leg wounds with secondary cellulitis. The patient showing overall improvement on Unasyn ,blood culture has been negative. At this time, would recommend switching over to Keflex 500 mg t.i.d. for another two weeks along with local wound care with Aretha and continue supportive care and follow-up with Dr. Quezada as an outpatient setting. LUBA
[2016-11-05] MEDS: ceFAZolin 1,000 MG in DEXTROSE/WATER 1 50ML.BAG IVPB SCH (16:47)
[2016-11-05] MEDS: traMADol 50 MG TAB PO PRN (17:41)
--- NOTE | 2016-11-05 19:36 | NM ---
EXAMINATION TYPE: NM bone 3 phase DATE OF EXAM: 11/05/2016 7:28 PM COMPARISON: NONE HISTORY: Triple phase bone scintigraphy was performed following the injection of25.5 mCi Tc 99m MDP. Immediat e images and 3.25 hours post injection images acquired. FINDINGS: The flow study does not show any significant abnormality. The immediate images show slight hyperemia of the right second and third toes. The delayed images show moderate increased uptake in the right second and third toes distally. The ac tivity in the remainder of the feet is normal. IMPRESSION: There is delayed increased uptake in the second and third toes of the right foot that is suggestive o f osteomyelitis.
[2016-11-05] MEDS: MELATONIN 3 MG TABLET PO SCH (19:52)
[2016-11-05] MEDS: HEPARIN SODIUM,PORCINE 5,000 UNIT/ML 1 ML VIAL SQ SCH (19:52)
--- NOTE | 2016-11-05 22:34 | PN ---
DATE OF SERVICE: 11/05/2016 This 81-year-old woman was admitted with extensive bilateral leg ulcerations, also had sepsis present on admission. The patient apparently had limited mobility at home, was moving around in a chair and the patient also had very limited social support as well. The patient had extensive ulcerations and the nutrition is also extremely poor. BMI is only 16.5. Multiple consultants are following the patient, including Surgery as well as infectious disease, Dr. Jiménez. The possibility of osteomyelitis is also being considered. The urine culture is showing E. coli. PAST MEDICAL HISTORY: Reviewed. REVIEW OF SYSTEMS: CARDIOVASCULAR: No palpitations, angina. RESPIRATORY: As mentioned earlier. GI: No nausea. : No dysuria. NERVOUS: No numbness or weakness. Current medications are reviewed, include: 1. Tylenol 650 every 6 hours p.r.n. 2. Unasyn q.8. 3. Cefazolin q.8. 4. Santyl. 5. every 6 hours p.r.n. 6. Protonix 40 mg. 7. Ultram 50 mg q.i.d. 8. Vancomycin. PHYSICAL EXAM: Patient is alert and oriented x3. Pulse is 86, blood pressure 120/57, respirations 19, temperature 98 degrees, pulse ox 94% on room air. HEENT: Conjunctivae normal. Oral mucosa moist. Neck is no jugular venous distention. No carotid bruits. No lymph node enlargement. CARDIOVASCULAR: S1 and S2 muffled. No S3. No S4. RESPIRATORY: Breath sounds diminished in the bases. A few scattered rhonchi and crackles. abdomen is soft, scaphoid, nontender. No mass palpable. LEGS: Bilateral leg cellulitis, erythema, tenderness also present. NERVOUS SYSTEM: Higher functions as mentioned. Moves all 4 limbs. Mild diffuse weakness. LYMPHATIC: No lymph node palpable in neck, axillae or groin. SKIN: No ulcers, rash or bleeding. LABS: WBC 7.4, hemoglobin is 10.6. Sodium 146. UA noted. ASSESSMENT: 1. Bilateral leg cellulitis with possible sepsis, present on admission. 2. Acute urinary tract infection with Escherichia coli, present on admission. 3. Hyponatremia. 4. Serum protein-calorie malnutrition with a body mass index 16.4% on admission. 5. Anemia, normocytic, possibly nutritional. 6. Hypocalcemia. 7. Gait dysfunction. 8. History of pneumonia. 9. History of prolapsed rectum. 10. History of nicotine dependence. 11. Chronic long-standing leg ulcers. 12. Increased creatinine with mild acute renal failure, possibly prerenal, present on admission. 13. FULL CODE. RECOMMENDATIONS AND DISCUSSION: In this 81-year-old woman who presented with multiple complex medical issues, we will monitor the patient closely. Continue the current medications. Continue with symptomatic treatment. Continue with the IV antibiotics at this time. Otherwise, I would also recommend follow the culture report, local treatment, nutritional supplementation, calorie counting as well as dietary consultation, PT, OT evaluation. The overall prognosis is extremely guarded, which I discussed at length with the case management and social services coordinator team, which have to evaluate the home situation. Otherwise, closely follow with Infectious Disease for further antibiotic recommendations. The overall prognosis is extremely guarded. Patient does not have a primary physician at this time. See orders for further details. Further recommendations to follow. MTDD
[2016-11-06] MEDS: ceFAZolin 1,000 MG in DEXTROSE/WATER 1 50ML.BAG IVPB SCH ×3 (00:01→16:34)
[2016-11-06] MEDS: AMPICILLIN-SULBACTAM 3 GM in SODIUM CHLORIDE 0.9% 100 ML IVPB SCH ×3 (00:36→17:39)
[2016-11-06 07:45] LABS: Basophils % (A) 0 %; CH 29.8; Eosinophils # (A) 0.4 k/uL (0-0.7); Eosinophils % (A) 5 %; HCT 33.7 % (34.0-46.0); HDW 2.76; HGB 10.8 gm/dL (11.4-16.0); Luc # (Auto) 0.12; Luc % (Auto) 2; Lymphocytes # (A) 0.8 k/uL (1.0-4.8); Lymphocytes % (A) 11 %; MCH 29.8 pg (25.0-35.0); MCHC 31.9 g/dL (31.0-37.0); MCV 93.5 fL (80.0-100.0); Mean Platelet Volume 6.8; Monocytes # (A) 0.3 k/uL (0-1.0); Monocytes % (A) 5 %; Neutrophils # (A) 5.9 k/uL (1.3-7.7); Neutrophils % (A) 79 %; RBC 3.61 m/uL (3.80-5.40); RDW 13.6 % (11.5-15.5); WBC 7.5 k/uL (3.8-10.6); WBC (Perox) 7.72
[2016-11-06] MEDS: PANTOPRAZOLE 40 MG TABLET PO SCH (08:01)
[2016-11-06] MEDS: HEPARIN SODIUM,PORCINE 5,000 UNIT/ML 1 ML VIAL SQ SCH ×2 (08:01→19:44)
[2016-11-06 08:03] LABS: Anion Gap 6 mmol/L; Blood Urea Nitrogen 17 mg/dL (7-17); Calcium 7.1 mg/dL (8.4-10.2); Carbon Dioxide 22 mmol/L (22-30); Chloride 114 mmol/L (98-107); Glucose 70 mg/dL (74-99); Non-African American GFR(MDRD) >60 (>60 ml/min/1.73 sqM); Potassium 4.2 mmol/L (3.5-5.1); Sodium 142 mmol/L (137-145)
[2016-11-06] MEDS: COLLAGENASE 250 UNIT/GM OINTMENT 30 GM TUBE TOPICAL SCH (08:17)
[2016-11-06] MEDS: VANCOMYCIN 750 MG in SODIUM CHLORIDE 0.9% 250 ML IVPB SCH ×2 (10:06→21:58)
[2016-11-06] MEDS: traMADol 50 MG TAB PO PRN (10:07)
[2016-11-06] MEDS: MELATONIN 3 MG TABLET PO SCH ×2 (19:44→21:58)
[2016-11-06] MEDS: SODIUM CHLORIDE 0.45% 1,000 ML IV SCH ×2 (22:06)
--- NOTE | 2016-11-06 22:31 | PN ---
DATE OF SERVICE: 11/06/2016 This 81 -year-old woman who was admitted with extensive bilateral leg ulcers, also had features of osteomyelitis and sepsis, present on admission. Escherichia coli. Patient also had E. coli urinary tract infection. The patient on antibiotics. The patient is on multiple antibiotics. Infectious disease is also following the patient closely. Body mass index is only 16.5. Past medical history reviewed. REVIEW OF SYSTEMS: CARDIOVASCULAR: No angina or palpitations. RESPIRATORY: As mentioned earlier. GI: As mentioned earlier. : No dysuria. CENTRAL NERVOUS SYSTEM: No numbness, weakness. Current medications are reviewed and include: 1. Tylenol 650 q.6h p.r.n. 2. Unasyn 3 grams IV q.8. 3. Cefazolin. 4. Santyl. 5. Heparin 2500 units subcu b.i.d. 6. Melatonin. 7. Protonix. 8. Ultram. 9. Vancomycin. PHYSICAL EXAMINATION: The patient is alert and oriented times three. Pulse 85, blood pressure 120/55, respiratory rate 16, temperature 98.8, pulse ox 90% on room air. HEENT: Conjunctivae normal. Oral mucosa moist. NECK: No jugular venous distention. No carotid bruit. No lymph node enlargement. CARDIOVASCULAR: S1, S2 muffled. RESPIRATORY: Breath sounds diminished at the bases. A few scattered rhonchi and crackles. ABDOMEN: Soft, nontender. LEGS: No edema. No swelling. CENTRAL NERVOUS SYSTEM: Diffusely weak. LABS: WBC 7.9, hemoglobin 10.8. Sodium is 142, potassium 4.2, creatinine ( )7.1. ASSESSMENT: 1. Bilateral leg cellulitis with sepsis and osteomyelitis of the left foot present on admission. 2. Acute urinary tract infection with E. coli, present on admission. 3. Hyponatremia. 4. Severe protein calorie malnutrition with body mass index 16.5% on admission. 5. Anemia, normocytic, possibly nutritional. 6. Hypocalcemia. 7. Gait dysfunction. 8. History of pneumonia. 9. History of prolapsed rectum. 10. History of nicotine dependence. 11. Chronic long standing leg ulcers. 12. Increased creatinine with mild acute renal failure, possibly prerenal, present on admission. 13. FULL CODE. RECOMMENDATIONS AND DISCUSSION: In this 81-year-old woman who presented with multiple complex medical issues, we will monitor the patient closely, continue the broad-spectrum IV antibiotics, closely follow with infectious disease, possible PICC line. Otherwise, we will monitor the hemoglobin, lytes, PT, OT evaluation, possible ECF rehab. Guarded prognosis because of multiple complex medical issues. Further recommendations to follow. MTDD
[2016-11-07] MEDS: ceFAZolin 1,000 MG in DEXTROSE/WATER 1 50ML.BAG IVPB SCH ×4 (00:11→23:24)
[2016-11-07] MEDS: AMPICILLIN-SULBACTAM 3 GM in SODIUM CHLORIDE 0.9% 100 ML IVPB SCH ×3 (00:54→16:57)
[2016-11-07 08:06] LABS: Basophils % (A) 0 %; CH 30.8; CHCM 32.7; Eosinophils # (A) 0.3 k/uL (0-0.7); Eosinophils % (A) 4 %; HCT 31.2 % (34.0-46.0); HDW 2.73; HGB 9.8 gm/dL (11.4-16.0); Luc # (Auto) 0.09; Luc % (Auto) 1; Lymphocytes # (A) 0.8 k/uL (1.0-4.8); Lymphocytes % (A) 10 %; MCH 29.9 pg (25.0-35.0); MCHC 31.5 g/dL (31.0-37.0); MCV 94.9 fL (80.0-100.0); Mean Platelet Volume 7.2; Monocytes # (A) 0.5 k/uL (0-1.0); Monocytes % (A) 6 %; Neutrophils # (A) 6.5 k/uL (1.3-7.7); Neutrophils % (A) 80 %; RBC 3.29 m/uL (3.80-5.40); RDW 13.7 % (11.5-15.5); WBC 8.1 k/uL (3.8-10.6); WBC (Perox) 7.92
[2016-11-07 08:14] LABS: Anion Gap 5 mmol/L; Blood Urea Nitrogen 16 mg/dL (7-17); Calcium 7.1 mg/dL (8.4-10.2); Carbon Dioxide 24 mmol/L (22-30); Chloride 112 mmol/L (98-107); Glucose 78 mg/dL (74-99); Non-African American GFR(MDRD) >60 (>60 ml/min/1.73 sqM); Potassium 3.2 mmol/L (3.5-5.1); Sodium 141 mmol/L (137-145)
[2016-11-07] MEDS: PANTOPRAZOLE 40 MG TABLET PO SCH (09:17)
[2016-11-07] MEDS: HEPARIN SODIUM,PORCINE 5,000 UNIT/ML 1 ML VIAL SQ SCH ×2 (09:17→20:09)
[2016-11-07] MEDS: SODIUM CHLORIDE 0.45% 1,000 ML IV SCH ×2 (09:20→23:24)
[2016-11-07] MEDS: VANCOMYCIN 750 MG in SODIUM CHLORIDE 0.9% 250 ML IVPB SCH (13:04)
[2016-11-07] MEDS: COLLAGENASE 250 UNIT/GM OINTMENT 30 GM TUBE TOPICAL SCH (13:04)
[2016-11-07] MEDS: MELATONIN 3 MG TABLET PO SCH (20:09)
[2016-11-08] MEDS: AMPICILLIN-SULBACTAM 3 GM in SODIUM CHLORIDE 0.9% 100 ML IVPB SCH ×3 (00:37→16:18)
[2016-11-08] MEDS: VANCOMYCIN 750 MG in SODIUM CHLORIDE 0.9% 250 ML IVPB SCH ×2 (05:10→21:46)
[2016-11-08] MEDS: HEPARIN SODIUM,PORCINE 5,000 UNIT/ML 1 ML VIAL SQ SCH ×2 (08:04→21:47)
[2016-11-08] MEDS: PANTOPRAZOLE 40 MG TABLET PO SCH (08:04)
[2016-11-08 08:07] LABS: Basophils % (A) 0 %; CHCM 32.8; Eosinophils # (A) 0.3 k/uL (0-0.7); Eosinophils % (A) 4 %; HCT 30.2 % (34.0-46.0); HDW 2.77; Luc # (Auto) 0.14; Luc % (Auto) 2; Lymphocytes # (A) 0.8 k/uL (1.0-4.8); Lymphocytes % (A) 10 %; MCH 30.4 pg (25.0-35.0); MCHC 33.2 g/dL (31.0-37.0); MCV 91.8 fL (80.0-100.0); Mean Platelet Volume 6.7; Monocytes # (A) 0.4 k/uL (0-1.0); Monocytes % (A) 4 %; Neutrophils # (A) 6.7 k/uL (1.3-7.7); Neutrophils % (A) 80 %; RBC 3.29 m/uL (3.80-5.40); RDW 13.5 % (11.5-15.5); WBC 8.3 k/uL (3.8-10.6); WBC (Perox) 9.11
[2016-11-08 08:26] LABS: Anion Gap 8 mmol/L; Blood Urea Nitrogen 14 mg/dL (7-17); Calcium 7.1 mg/dL (8.4-10.2); Carbon Dioxide 22 mmol/L (22-30); Chloride 112 mmol/L (98-107); Glucose 76 mg/dL (74-99); Non-African American GFR(MDRD) >60 (>60 ml/min/1.73 sqM); Potassium 3.1 mmol/L (3.5-5.1); Sodium 142 mmol/L (137-145)
[2016-11-08] MEDS: ceFAZolin 1,000 MG in DEXTROSE/WATER 1 50ML.BAG IVPB SCH ×3 (09:31→23:36)
[2016-11-08] MEDS: SODIUM CHLORIDE 0.45% 1,000 ML IV SCH (11:50)
[2016-11-08] MEDS: traMADol 50 MG TAB PO PRN (14:16)
--- NOTE | 2016-11-08 14:20 | PN ---
DATE OF SERVICE: 11/07/2016 This 81-year-old woman was admitted with bilateral leg ulcers, also has osteomyelitis. No chest pain, no palpitation. No fever. The bones. Patient is on antibiotics. No fever. No cough. On exam, alert and oriented times three. Pulse 99, blood pressure 122/50, respiratory rate 16, temperature 99.3, pulse ox 91% on room air. HEENT: Conjunctivae normal. NECK: No jugular venous distention. CARDIOVASCULAR: S1, S2 muffled. RESPIRATORY: Breath sounds diminished at the bases. A few scattered rhonchi and crackles. ABDOMEN: Soft and nontender. LEGS: Erythema and infection present. CENTRAL NERVOUS SYSTEM: No focal deficits. LABS: WBC 8.9, hemoglobin is 9.2. Sodium 142, potassium 3.0. ASSESSMENT: 1. Bilateral leg cellulitis with osteomyelitis of the left foot present on admission. 2. Acute urinary tract infection with Escherichia coli, present on admission. 3. Hyponatremia. 4. Hypokalemia. 5. History of severe protein calorie malnutrition with body mass index 16.5 present on admission. 6. Anemia, normocytic possibly nutritional. 7. Hypocalcemia. 8. Gait dysfunction. 9. History of pneumonia. 10. History of prolapsed rectum. 11. History of nicotine dependence. 12. Chronic long-standing leg ulcers. 13. Increased creatinine with acute renal failure, possibly prerenal present on admission. 14. FULL CODE. RECOMMENDATIONS AND DISCUSSION: In this 81-year-old who presented with multiple complex medical issues, we will monitor the patient closely. Continue with current medications, continue symptomatic treatment. Otherwise, at this time, I recommend follow the patient closely with infectious disease. Otherwise, guarded prognosis because of multiple complex medical issues. Further recommendations to follow. MTDD
[2016-11-08] MEDS: COLLAGENASE 250 UNIT/GM OINTMENT 30 GM TUBE TOPICAL SCH (14:22)
[2016-11-08] MEDS ORDERED: POTASSIUM CHLORIDE ER 20 MEQ TAB.ER PO STA (19:15)
[2016-11-08] MEDS: MELATONIN 3 MG TABLET PO SCH (21:47)
[2016-11-08] MEDS: ACETAMINOPHEN TAB 325 MG TAB PO PRN (21:49)
[2016-11-09] MEDS: ceFAZolin 1,000 MG in DEXTROSE/WATER 1 50ML.BAG IVPB SCH ×2 (01:18→07:47)
[2016-11-09] MEDS: HEPARIN SODIUM,PORCINE 5,000 UNIT/ML 1 ML VIAL SQ SCH ×2 (08:36→21:09)
[2016-11-09] MEDS: PANTOPRAZOLE 40 MG TABLET PO SCH (08:36)
[2016-11-09 08:44] LABS: INR 1.1 (<1.1); Prothrombin Time 10.8 sec (9.0-12.0)
[2016-11-09 08:54] LABS: Basophils % (A) 0 %; CH 29.7; CHCM 32.2; Eosinophils # (A) 0.4 k/uL (0-0.7); Eosinophils % (A) 5 %; HCT 32.1 % (34.0-46.0); HDW 2.84; HGB 10.3 gm/dL (11.4-16.0); Luc # (Auto) 0.12; Luc % (Auto) 2; Lymphocytes # (A) 0.7 k/uL (1.0-4.8); Lymphocytes % (A) 10 %; MCH 29.8 pg (25.0-35.0); MCHC 32.1 g/dL (31.0-37.0); Mean Platelet Volume 6.5; Monocytes # (A) 0.3 k/uL (0-1.0); Monocytes % (A) 4 %; Neutrophils % (A) 79 %; RBC 3.45 m/uL (3.80-5.40); RDW 13.5 % (11.5-15.5); WBC 7.6 k/uL (3.8-10.6); WBC (Perox) 8.43
[2016-11-09 08:56] LABS: Anion Gap 8 mmol/L; Blood Urea Nitrogen 12 mg/dL (7-17); Calcium 7.3 mg/dL (8.4-10.2); Carbon Dioxide 26 mmol/L (22-30); Chloride 111 mmol/L (98-107); Glucose 74 mg/dL (74-99); Non-African American GFR(MDRD) >60 (>60 ml/min/1.73 sqM); Potassium 3.3 mmol/L (3.5-5.1); Sodium 145 mmol/L (137-145)
[2016-11-09] MEDS ORDERED: [UNRECOGNIZED DRUG - OTHER] PO SCH (09:00)
--- NOTE | 2016-11-09 09:15 | PN ---
DATE OF SERVICE: 11/08/2016 This is an 81-year-old woman who was admitted after bilateral leg cellulitis and osteomyelitis, is being closely monitored at this time. No chest pain or palpitation. Patient is on antibiotics, no fever, no cough. On exam, alert and oriented x2. Pulse 110, respirations 16, temperature 98 degrees, pulse ox 96% on room air. HEENT: Conjunctivae normal. NECK: No jugular venous distension. CARDIAC: S1, S2. RESPIRATORY: Breath sounds diminished at bases. A few rhonchi, no crackles. ABDOMEN: Soft, nontender. EXTREMITIES: Legs no edema, no swelling. NERVOUS SYSTEM: NO focal deficits. LAB: WBC is 8.3, hemoglobin is 10, sodium 142, potassium 3.1. ASSESSMENT: 1. Bilateral leg cellulitis with osteomyelitis of the left foot, present on admission. 2. Acute urinary tract infection with Escherichia coli present on admission. 3. Hyponatremia. 4. Hypokalemia. 5. History of severe protein calorie malnutrition with body mass index of 16.5, present on admission. 6. Anemia, normocytic, possibly nutritional. 7. Hypocalcemia. 8. Gait dysfunction. 9. History of pneumonia. 10. History of prolapsed rectum. 11. History of nicotine dependence. 12. Chronic long-standing leg ulcers. 13. Increased creatinine with acute renal failure, possibly prerenal present on admission. 14. FULL CODE. RECOMMENDATION: In this 81-year-old woman who presented with multiple complex medical issues, will monitor the patient closely, continue with the current medications and symptomatic treatment, potassium supplementation. Otherwise, guarded prognosis because of multiple complex medical issues. Further recommendations to follow.
[2016-11-09] MEDS: traMADol 50 MG TAB PO PRN (09:25)
--- NOTE | 2016-11-09 11:12 | PN ---
REASON FOR FOLLOW UP: Right lower extremity wound with secondary cellulitis. INTERVAL HISTORY: The patient is afebrile. She is breathing comfortably. Denies any chest or cough. No abdominal pain. Right lower extremity area cellulitis. Waiting for placement. On examination, blood pressure is 110/67, pulse of 76, temperature 98, she is 96% on room air. GENERAL DESCRIPTION: An elderly female lying in bed in no distress. RESPIRATORY SYSTEM: Unlabored breathing. Clear to auscultation. HEART: S1, S2. Regular rate and rhythm. EXTREMITIES: Bilateral leg edema. No drainage from the dressing. LABS: Hemoglobin is 10, white count 8.3. BUN of 14, creatinine 0.60. Blood culture negative. DIAGNOSTIC IMPRESSION AND PLAN: Patient with bilateral lower extremity wounds with secondary cellulitis, right greater than the left. Patient apparently has refused amputation. Vascular surgery wants IV antibiotics and local wound care and outpatient follow-up. Antibiotics have been adjusted to cefazolin, that will be continued along with local wound care. She did have a bone scan. There is a possibility of osteo in the toes. Her main ulceration has been on the leg and dorsum of the foot. Currently no significant osteo. Continue supportive care.
[2016-11-09] MEDS: COLLAGENASE 250 UNIT/GM OINTMENT 30 GM TUBE TOPICAL SCH (11:16)
--- NOTE | 2016-11-09 11:19 | CDI ---
In responding to this query, please exercise your independent professional judgment. The [facility] Coding Staff and Clinical Documentation Specialists appreciate your assistance in clarifying documentation, maintaining compliance with coding guidelines, accurately documenting patients condition and capturing severity of illness. The fact that a question is asked does not imply that any particular answer is desired or expected. Communication forms are a method of clarifying documentation and are not made part of the Legal Health Record. Thank you in advance for your clarification. Last Revision, September [address] [facility] [place] [address] Documentation Clarification Form Date: 11/09/2016 11:13:00 AM From: Lashae Sandoval Admit Date: 10/31/2016 3:09:00 PM Patient Name: Beatriz Call Visit Number: [id number] Dr. Lit Cerrato 'Sepsis' is documented in the H&P and progress note on 11/[address] Rasheed then dropped from dictation. Also documented 'thrombocytosis secondary to a reactive response from sepsis'. Then on 11/05 it is documented by Dr Cerrato and then dropped from the note on 11/08. History/Risk Factors: Bilateral low leg cellulitis Severe protein calorie malnutrition BMI 16.5 Acute UTI w EColi Clinical Indicators: WBC 13.4 on admission Lactic acid: 1.6 on admission Blood cultures: no growth Vitals signs on admission: temp 96.2, hr 108 Acute Renal Failure documented Urine Culture positive for EColi Treatment: ID Consult Antibiotics: IV Ampicillin, IV Vancomycin, IV Kefzol IV fluid with boluses In your professional opinion, can you please clarify if these findings signify one of the following conditions, whether the condition is POA, and cause, if known? Sepsis Ruled In? Sepsis Ruled Out? Sepsis Resolved? Unable to determine Please document in your progress notes and discharge summary in order to capture severity of illness and risk of mortality. Include clinical findings that support your diagnosis. FYI: Press F11 to launch patient chart. Place X here if this finding has no clinical significance, is not applicable or if you are not able to provide any additional documentation. LUBA
[2016-11-09] MEDS ORDERED: IV VANCOMYCIN PER PHARMACY 1 EACH MISC MISCELLANE PRN (11:22)
[2016-11-09 12:27] LABS: Amorphous Sediment,Urine Rare /hpf; Appearance,Urine Cloudy (Clear); Bilirubin,Urine Negative (Negative); Glucose,Urine (UA) Negative (Negative); Hyphae Yeast, Urine Rare /hpf; Ketones,Urine Negative (Negative); Leukocyte Esterase,Urine Trace (Negative); Mucus,Urine Rare /hpf; Nitrite,Urine Negative (Negative); PH, Urine 5.5 (5.0-8.0); Particle Count 1354; Protein,Urine 1+ (Negative); RBC,Urine 7 /hpf (0-5); Specific Gravity,Urine 1.022 (1.001-1.035); Squamous Epithelial Cell,Urine <1 /hpf (0-4); UA Billing (MACRO vs. MICRO) MICRO; Urobilinogen,Urine <2.0 mg/dL (<2.0); WBC,Urine 6 /hpf (0-5)
[2016-11-09] MEDS ORDERED: VANCOMYCIN TROUGH DUE 1 EACH MISC MISCELLANE ONE (13:00)
[2016-11-09] MEDS ORDERED: LIDOCAINE 2% INJ 20 MG/ML SQ ONE (13:14)
[2016-11-09] MEDS: VANCOMYCIN 750 MG in SODIUM CHLORIDE 0.9% 250 ML IVPB SCH (14:03)
[2016-11-09] MEDS: CIPROFLOXACIN HCL 250 MG TAB PO SCH ×2 (14:03→21:09)
--- NOTE | 2016-11-09 14:14 | IR ---
PICC LINE PLACEMENT: HISTORY: Infection requiring long-term antibiotic therapy PROCEDURE: Ultrasound and fluoroscopic guidance of PICC line placement. COMPLICATIONS: None ANESTHESIA: 1. 1% Lidocaine locally. FINDINGS/TECHNIQUE: The procedure was explained to the patient. The risks, complications, benefits and alternatives were discussed and any questions were answered. Informed consent was obtained. The patient was placed supine on the fluoroscopic table and prepped and draped in the usual sterile community health ion. Utilizing a 21 gauge needle and sonographic and fluoroscopic guidance, access in the vein was achieved and there is placement of a 0.018 guidewire. The vein is patent. A 4-F sheath was placed o nikki the guidewire. The guidewire and dilator were removed and a 4-F. PICC line was placed through th e sheath with the tip at the level of the SVC. The sheath was removed, the catheter was flushed and sutured into position. The patient was stable throughout the procedure and remained stable upon disc harge from the Department of Radiology. The vein puncture was patent under ultrasound. A perez scale image was obtained to document patency of the vein punctured. All elements of the maximal barrier technique were utilized. FLUOROSCOPY TIME: 0.1 minute IMPRESSION: Successful PICC line placement under ultrasound and fluoroscopic guidance.
--- NOTE | 2016-11-09 14:41 | PN ---
DATE OF SERVICE: 11/09/2016 Reason for followup is left lower extremity wound and cellulitis. INTERVAL HISTORY: The patient did spike a fever last night of 101.2. I was not notified. Patient is afebrile this morning. She is breathing comfortably. Denies any worsening pain to her right leg area. Denies any chest pain, no shortness of breath or cough. On examination, blood pressure is 140/62 with a pulse of 76, temperature 98. She is 98% on room air. General description is an elderly female, lying in bed in no distress. RESPIRATORY SYSTEM: Unlabored breathing. Clear to auscultation anteriorly. HEART: S1, S2. Regular rate and rhythm. ABDOMEN: Soft, no tenderness. Right leg wounds are currently dressed up. No change of dressing. There is no significant wound on the right second and third toe. LABS: Hemoglobin 10.3, white count 7.6 with a BUN of 12, creatinine 0.60. DIAGNOSTIC IMPRESSION AND PLAN: Patient with right lower extremity cellulitis. Previously, patient has been on Unasyn and vanco. We did discontinue vanco yesterday. Now the patient did have a fever. Will discontinue the cefazolin to recommend switching her back to vancomycin where the patient will continue for 2 weeks, pharmacy to dose with outpatient followup as for as local wound care. Overall slough tissue has decreased and will switch her to Aquacel Silver dressing. Plan of care was discussed with the RN as well as with the family present at beside. LUBA
[2016-11-09] MEDS ORDERED: POTASSIUM CHLORIDE ER 20 MEQ TAB.ER PO STA (15:04)
--- NOTE | 2016-11-09 16:10 | DS ---
DATE OF ADMISSION: 10/31/2016 DATE OF DISCHARGE: FINAL DIAGNOSES: 1. Bilateral leg cellulitis with osteomyelitis of the left foot with sepsis, present on admission. 2. Acute urinary tract infection with Escherichia coli, present on admission. 3. Thrombocytosis, reactive, present on admission. 4. Hyponatremia. 5. Hypokalemia. 6. History of severe protein-calorie malnutrition with a body mass index of 16.5, present on admission. 7. Anemia, normocytic, possibly nutritional. 8. Hypocalcemia. 9. Gait dysfunction. 10. History of pneumonia. 11. History of prolapsed rectum. 12. History of nicotine dependence. 13. Chronic long-standing leg ulcers. 14. Increased creatinine with acute renal failure, possibly prerenal, present on admission. 15. FULL CODE. DISCHARGE DISPOSITION: The patient will be discharged in stable condition with guarded prognosis. Total time taken 35 minutes. HISTORY OF PRESENT ILLNESS: This 81-year-old woman with a past medical history of multiple medical problems, as mentioned above, was admitted with bilateral leg ulcers, osteomyelitis. Patient was treated with antibiotics. Patient improved significantly. Infectious Disease saw the patient. On exam, vitals are stable. CARDIOVASCULAR SYSTEM: S1, S2 muffled. RESPIRATORY SYSTEM: Breath sounds diminished at the bases. A few scattered rhonchi. ABDOMEN: Soft. LEGS: As mentioned earlier. NERVOUS SYSTEM: No focal deficit. The patient will be discharged in stable condition with the following advice and medications: 1. Diet is cardiac. 2. Activity limited until followup. 3. Follow up with Dr. Wilson and Dr. Caldwell in the [place]. Otherwise, follow up with Dr. Jiménez as advised. 4. Ciprofloxacin 250 mg p.o. b.i.d. for 2 weeks. 5. Protonix 40 mg p.o. daily. 6. Vancomycin 1 gram IV daily for 2 weeks. 7. Ultram 50 mg p.o. q.i.d. 8. [place] 5 mg p.o. q.6 p.r.n. for pain. 9. Xanax 0.25 p.o. t.i.d. 10. Multivitamins 1 p.o. daily. 11. CBC, BMP in 2 to 3 days. Continue to follow. Once again, the patient will be discharged in stable condition with guarded prognosis.
[2016-11-09] MEDS: MELATONIN 3 MG TABLET PO SCH (21:09)
[2016-11-09 21:50] LABS: Glucose,Whole Blood 222 mg/dL (75-99)
[2016-11-10] MEDS: VANCOMYCIN 750 MG in SODIUM CHLORIDE 0.9% 250 ML IVPB SCH ×3 (06:03→22:11)
[2016-11-10 06:19] LABS: Basophils % (A) 0 %; CH 29.8; CHCM 32.4; Eosinophils # (A) 0.3 k/uL (0-0.7); Eosinophils % (A) 4 %; HCT 29.2 % (34.0-46.0); HDW 2.81; HGB 9.6 gm/dL (11.4-16.0); Luc # (Auto) 0.13; Luc % (Auto) 2; Lymphocytes % (A) 12 %; MCH 30.3 pg (25.0-35.0); MCHC 32.7 g/dL (31.0-37.0); MCV 92.5 fL (80.0-100.0); Mean Platelet Volume 6.8; Monocytes # (A) 0.4 k/uL (0-1.0); Monocytes % (A) 5 %; Neutrophils % (A) 76 %; RBC 3.15 m/uL (3.80-5.40); RDW 13.5 % (11.5-15.5); WBC 7.8 k/uL (3.8-10.6); WBC (Perox) 8.44
[2016-11-10 06:34] LABS: Anion Gap 6 mmol/L; Blood Urea Nitrogen 11 mg/dL (7-17); Calcium 7.4 mg/dL (8.4-10.2); Carbon Dioxide 27 mmol/L (22-30); Chloride 112 mmol/L (98-107); Glucose 69 mg/dL (74-99); Non-African American GFR(MDRD) >60 (>60 ml/min/1.73 sqM); Potassium 3.7 mmol/L (3.5-5.1); Sodium 145 mmol/L (137-145)
[2016-11-10 07:31] LABS: Glucose,Whole Blood 105 mg/dL (75-99)
[2016-11-10] MEDS: PANTOPRAZOLE 40 MG TABLET PO SCH (08:14)
[2016-11-10] MEDS: HEPARIN SODIUM,PORCINE 5,000 UNIT/ML 1 ML VIAL SQ SCH ×2 (08:14→22:12)
[2016-11-10] MEDS: CIPROFLOXACIN HCL 250 MG TAB PO SCH ×2 (08:14→22:12)
[2016-11-10 11:49] LABS: Glucose,Whole Blood 88 mg/dL (75-99)
[2016-11-10 17:35] LABS: Glucose,Whole Blood 129 mg/dL (75-99)
--- NOTE | 2016-11-10 20:05 | PN ---
DATE OF SERVICE: 11/10/2015 REASON FOR FOLLOW-UP: 1. Left leg wound cellulitis. 2. Urinary tract infection. INTERVAL HISTORY: The patient is afebrile. He is currently waiting for placement as Bethany Ho has refused to take her. Patient denies worsening pain in the right leg area. The Gold catheter has been discontinued. Denies having any chest pain or shortness of breath. No cough. On examination, blood pressure 124/52 with a pulse of 91, temperature is 98, she is 94% on 2 L. General description is an elderly female, lying in bed in no distress. RESPIRATORY SYSTEM: Unlabored breathing. Clear to auscultation anteriorly. HEART: S1, S2. Regular rate and rhythm. ABDOMEN: Soft, no tenderness. Right leg wound dressed , no obvious drainage on the dressing. LABS: Hemoglobin 9.6, white count 7.8, BUN of 11. DIAGNOSTIC IMPRESSION AND PLAN: 1. Patient with right lower extremity wound with secondary cellulitis, the patient is currently on vancomycin which will be continued, still waiting placement. 2. Patient with a possible catheter associated urinary tract infection for which the patient is currently on p.o. Cipro, continue for about 7 days her fever responding MTDD
[2016-11-10 20:46] LABS: Glucose,Whole Blood 122 mg/dL (75-99)
[2016-11-10] MEDS: MELATONIN 3 MG TABLET PO SCH (22:11)
[2016-11-11 07:49] LABS: Glucose,Whole Blood 77 mg/dL (75-99)
[2016-11-11] MEDS: HEPARIN SODIUM,PORCINE 5,000 UNIT/ML 1 ML VIAL SQ SCH ×2 (08:42→20:41)
[2016-11-11] MEDS: PANTOPRAZOLE 40 MG TABLET PO SCH (08:42)
[2016-11-11] MEDS: CIPROFLOXACIN HCL 250 MG TAB PO SCH ×2 (08:43→20:41)
--- NOTE | 2016-11-11 09:45 | PN ---
DATE OF SERVICE: 11/09/2016 This [id number] woman was admitted with bilateral leg cellulitis and osteomyelitis being closely monitored at this time. No chest pain or palpitations. No fever. ECF rehab is suggested. On exam, alert and oriented x3. The pulse is 76, blood pressure 128/58, respirations 16, temperature 98.2, pulse ox 91% on 2 L. HEENT: Conjunctivae normal. NECK: No jugular venous distention. CARDIOVASCULAR: S1 and S2, muffled. RESPIRATORY: Breath sounds diminished at the bases. Bilateral scattered rhonchi and crackles. ABDOMEN: Soft, nontender. LEGS:ntd. NERVOUS SYSTEM: Higher function as mentioned. Moves all 4 limbs. Mild diffuse weakness. Leg ulcers present. Labs are noted. ASSESSMENT: 1. Bilateral leg cellulitis with osteomyelitis of the left foot with sepsis, present on admission. 2. Acute urinary tract infection with Escherichia coli present on admission. 3. Thrombocytosis, reactive, present on admission. 4. Hyponatremia. 5. Hypokalemia. 6. History of severe protein calorie malnutrition with a body mass index of 16.2, present on admission. 7. Anemia, normocytic possibly nutritional. 8. Hypocalcemia. 9. Gait dysfunction. 10. History of pneumonia. 11. History of prolapsed rectum. 12. History of nicotine dependence. 13. Chronic long-standing ulcers. 14. Increased creatinine with acute renal failure, possible prerenal, present on admission. 15. FULL CODE. RECOMMENDATIONS AND DISCUSSION: This 81-year-old woman presented with multiple complex medical issues. Will monitor the patient closely. Continue the current medications. Continue symptomatic treatment. Otherwise, at this time I would recommend follow the patient closely. Otherwise, guarded prognosis. Further recommendations to follow. MTDD
--- NOTE | 2016-11-11 11:28 | PN ---
DATE OF SERVICE: 11/10/2016 This 81-year-old woman who was admitted with bilateral leg cellulitis and osteomyelitis, being closely monitored. No chest pain or palpitation. No fever. Discharge planning is planning for discharge planning. PAST MEDICAL HISTORY: Reviewed. REVIEW OF SYSTEMS: CARDIOVASCULAR: No angina. RESPIRATORY: As mentioned earlier. GI: As mentioned earlier. PHYSICAL EXAMINATION: The patient is alert and oriented x2. Pulse is 85, blood pressure 130/60, respirations 16, temperature 97.2, pulse ox 97% on room air. HEENT: Conjunctivae normal. NECK: No jugular venous distention. CARDIOVASCULAR: S1 and S2, muffled. RESPIRATORY: Breath sounds diminished at the bases. A few scattered rhonchi, no crackles. ABDOMEN: Soft, nontender. LEGS: Infection, cellulitis present. NERVOUS SYSTEM: No focal deficits. LABS: Hemoglobin 9.6, white count 7.8. ASSESSMENT: 1. Bilateral leg cellulitis with osteomyelitis of the left foot with sepsis, present on admission. 2. Acute urinary tract infection with Escherichia coli present on admission. 3. Thrombocytosis reactive, present on admission. 4. Hyponatremia. 5. Hypokalemia. 6. History of severe protein calorie malnutrition with a body mass index of 16.5, present on admission. 7. Anemia, normocytic, possibly nutrition. 8. Hypocalcemia. 9. Gait dysfunction. 10. History of pneumonia. 11. History of prolapsed rectum. 12. History of nicotine dependence. 13. Chronic long-standing leg ulcers. 14. Increased creatinine with acute renal failure, possibly renal, present on admission. 15. FULL CODE. RECOMMENDATIONS AND DISCUSSION: In this 81-year-old woman who presented with multiple complex medical issues, will monitor the patient closely. Continue the . Otherwise at this time, I recommend continue with current medications, continue with antibiotics. Otherwise, placement per discharge planning. Further recommendations to follow. MTDD
[2016-11-11 12:09] LABS: Glucose,Whole Blood 116 mg/dL (75-99)
[2016-11-11] MEDS: VANCOMYCIN 750 MG in SODIUM CHLORIDE 0.9% 250 ML IVPB SCH (15:02)
[2016-11-11 17:12] LABS: Glucose,Whole Blood 105 mg/dL (75-99)
[2016-11-11] MEDS: MELATONIN 3 MG TABLET PO SCH (20:41)
[2016-11-11 21:08] LABS: Glucose,Whole Blood 114 mg/dL (75-99)
[2016-11-12] MEDS: VANCOMYCIN 750 MG in SODIUM CHLORIDE 0.9% 250 ML IVPB SCH ×2 (06:19→21:28)
[2016-11-12 06:38] LABS: Anion Gap 7 mmol/L; Blood Urea Nitrogen 16 mg/dL (7-17); Calcium 7.7 mg/dL (8.4-10.2); Carbon Dioxide 29 mmol/L (22-30); Chloride 110 mmol/L (98-107); Glucose 79 mg/dL (74-99); Non-African American GFR(MDRD) >60 (>60 ml/min/1.73 sqM); Potassium 3.2 mmol/L (3.5-5.1); Sodium 146 mmol/L (137-145)
[2016-11-12 07:50] LABS: Glucose,Whole Blood 73 mg/dL (75-99)
[2016-11-12] MEDS: HEPARIN SODIUM,PORCINE 5,000 UNIT/ML 1 ML VIAL SQ SCH ×2 (07:55→20:40)
[2016-11-12] MEDS: PANTOPRAZOLE 40 MG TABLET PO SCH (07:56)
[2016-11-12] MEDS: CIPROFLOXACIN HCL 250 MG TAB PO SCH (07:56)
--- NOTE | 2016-11-12 08:16 | PN ---
DATE OF SERVICE: 11/11/2016 REASON FOR FOLLOWUP: 1. Left lower extremity wound and cellulitis. 2. Urinary tract infection. INTERVAL HISTORY: The patient is afebrile. She has been breathing comfortably. The patient is currently waiting for placement. Denies having any chest pain, shortness of breath or cough. no pain in her leg. On examination, blood pressure is 137/65 with a pulse of 87, temperature 98.4. She is 94% on room air. General description is an elderly female lying in bed in no distress. RESPIRATORY SYSTEM: Unlabored breathing. Clear auscultation. HEART: S1, S2. Regular rate and rhythm. ABDOMEN: Soft, no tenderness. Right leg is currently dressed, no obvious drainage on the dressing. LABS: Hemoglobin is 9.6, white count 7.8, BUN of 11, creatinine 0.64. DIAGNOSTIC IMPRESSION AND PLAN: 1. Patient with bilateral lower extremity wound and cellulitis, right more than the left. Patient at this time responding to the vancomycin, will continue for another 2 weeks along with local wound care with Aquacel Silver. 2. Possible urinary tract infection, catheter associated. Gold has been discontinued. She will continue on p.o. Cipro about 4 or 5 more days. MTDD
[2016-11-12 11:45] LABS: Glucose,Whole Blood 113 mg/dL (75-99)
--- NOTE | 2016-11-12 11:57 | PN ---
DATE OF SERVICE: 11/11/2016 This 81-year-old woman who was admitted with bilateral leg ulcers with osteomyelitis is being closely monitored. Possible ECF rehab is being contemplated. No chest pain or palpitations. No fever. On exam, alert and oriented x2. Pulse 92, blood pressure 162/89, respirations 18, temperature 98.1, pulse ox 92% on room air. HEENT: Conjunctivae normal. NECK: No jugular venous distention. CARDIOVASCULAR: S1 and S2, muffled. RESPIRATORY: Breath sounds diminished at the bases. Scattered rhonchi and crackles. ABDOMEN: Soft, nontender. No mass palpable. LEGS: No edema, no swelling. NERVOUS SYSTEM: Higher function as mentioned. Moves all 4 limbs. No focal motor or sensory deficits. LYMPHATICS: No lymphadenopathy of neck, axillae or groin. SKIN: ntd Labs are Accu-Cheks 116. Hemoglobin is 9.6. ASSESSMENT: 1. Bilateral leg cellulitis with osteomyelitis of the left foot with sepsis, present on admission. 2. Acute urinary tract infection with Escherichia coli present on admission. 3. Thrombocytosis, reactive, secondary to sepsis present on admission. 4. Hyponatremia. 5. Hypokalemia. 6. History of severe protein calorie malnutrition with body mass index of 16.4, present on admission. 7. Anemia, normocytic, possibly nutritional. 8. Hypocalcemia. 9. Gait dysfunction. 10. History pneumonia. 11. History of prolapsed rectum. 12. History of nicotine dependence. 13. Chronic long-standing leg ulcers. 14. Increased creatinine with acute renal failure, possible prerenal, present on admission. 15. FULL CODE. RECOMMENDATIONS AND DISCUSSION: In this 81-year-old woman who presented with multiple complex medical issues, will monitor the patient closely. Continue the current medications. Continue symptomatic treatment. Otherwise at this time I would recommend continue with antibiotics, possible IV antibiotics, possible ECF rehab. Guarded prognosis. Further recommendations to follow. MTDD
--- NOTE | 2016-11-12 13:12 | FL ---
EXAMINATION TYPE: FL barium swallow w video DATE OF EXAM: 11/12/2016 11:19 AM MODIFIED SWALLOW / DEGLUTITION STUDY CLINICAL HISTORY: Dysphagia. Rule out aspiration. TECHNIQUE: Deglutition study is performed utilizing thin liquid barium. A total of 48 seconds of flu oroscopic time was utilized during procedure. COMPARISON: None. FINDINGS: The oral and pharyngeal phases show satisfactory initiation and propagation . There is no evidence of penetration or aspiration . No significant pharyngeal residue was appreciated. IMPRESSION: Normal deglutition study. Please refer to speech therapist notes for further details if necessary.
--- NOTE | 2016-11-12 16:26 | PN ---
DATE OF SERVICE: 11/12/2016 REASON FOR FOLLOWUP: 1. Right lower extremity wound and cellulitis. 2. Urinary tract infection. INTERVAL HISTORY: The patient is afebrile. She has been breathing comfortably. Denies having any significant pain to the right leg area. No chest pain. No shortness of breath or cough. On examination, blood pressure is 146/76 with a pulse of 92, temperature 98.6. She is 93% on room air. General description is an elderly female lying in bed in no distress. RESPIRATORY SYSTEM: Unlabored breathing. Clear to auscultation anteriorly. HEART: S1, S2. Regular rate and rhythm. ABDOMEN: Soft. No tenderness. Legs are currently dressed. On obvious drainage on the dressing. LABS: BUN of 16, creatinine 0.84. Urine with Winnie albicans. DIAGNOSTIC IMPRESSION AND PLAN: 1. Patient with right lower extremity wound and cellulitis. Patient seems to have shown overall clinical improvement. Continue local wound care with Aquacel Silver and vancomycin, Pharmacy to dose, for another 2 weeks. 2. Patient with possible urinary tract infection. Urine has been yeast. She should be given Diflucan 100 daily for about 5 days. Continue supportive care.
[2016-11-12] MEDS: FLUCONAZOLE 100 MG TAB PO SCH (16:51)
[2016-11-12 16:54] LABS: Glucose,Whole Blood 89 mg/dL (75-99)
--- NOTE | 2016-11-12 19:30 | PN ---
DATE OF SERVICE: 11/12/2016 This 81-year-old woman admitted with bilateral leg swelling and osteomyelitis has been closely monitored. ECF rehab is being considered. At this time, No chest pain, no palpitations. No fever. Infectious Disease is following the patient closely. Patient also had videofluoroscopic swallow evaluation that showed normal deglutition study. No evidence of aspiration. No chest pain, no palpitations. No fever. On exam, alert and oriented x2. Pulse 101, blood pressure 140/72, respirations 20, temperature 99 degrees, pulse ox 94% on room air. HEENT: Conjunctivae normal. NECK: No jugular venous distention. CARDIOVASCULAR: S1 and S2, muffled. RESPIRATORY: Breath sounds diminished at the bases. Scattered rhonchi, no crackles. ABDOMEN: Soft, nontender. LEGS: Unchanged. NERVOUS SYSTEM: Unchanged. LABS: Sodium 140, potassium 3.2. ASSESSMENT: 1. Bilateral leg cellulitis and osteomyelitis of the left foot with sepsis, present on admission. 2. Acute urinary tract infection with Escherichia coli present on admission. 3. Thrombocytosis reactive present on admission. 4. Hyponatremia. 5. Hypokalemia. 6. History of severe protein calorie malnutrition with body mass index of 16.4, present on admission. 7. Anemia normocytic, possibly nutritional. 8. Hypocalcemia. 9. Gait dysfunction. 10. History of pneumonia. 11. History of prolapsed rectum. 12. History of nicotine dependence, chronic longstanding. 13. Increased creatinine with acute renal failure, possibly prerenal, present on admission. 14. FULL CODE. RECOMMENDATIONS AND DISCUSSION: I recommend to continue the current medications, continue monitoring and symptomatic treatment. Otherwise at this time I recommend potassium supplementation. Continue with empiric antibiotics. Otherwise, closely monitor. Closely follow with discharge planning team. Guarded prognosis. Further recommendations to follow.
[2016-11-12 19:55] LABS: Glucose,Whole Blood 142 mg/dL (75-99)
[2016-11-12] MEDS: MELATONIN 3 MG TABLET PO SCH (20:40)
[2016-11-13 06:48] LABS: Anion Gap 4 mmol/L; Blood Urea Nitrogen 19 mg/dL (7-17); Calcium 7.5 mg/dL (8.4-10.2); Carbon Dioxide 31 mmol/L (22-30); Chloride 109 mmol/L (98-107); Glucose 82 mg/dL (74-99); Non-African American GFR(MDRD) >60 (>60 ml/min/1.73 sqM); Potassium 3.1 mmol/L (3.5-5.1); Sodium 144 mmol/L (137-145)
[2016-11-13] MEDS: FLUCONAZOLE 100 MG TAB PO SCH (08:30)
[2016-11-13] MEDS: PANTOPRAZOLE 40 MG TABLET PO SCH (08:30)
[2016-11-13] MEDS: HEPARIN SODIUM,PORCINE 5,000 UNIT/ML 1 ML VIAL SQ SCH ×2 (08:31→20:47)
[2016-11-13] MEDS: VANCOMYCIN 750 MG in SODIUM CHLORIDE 0.9% 250 ML IVPB SCH (14:33)
--- NOTE | 2016-11-13 17:14 | PN ---
This 81-year-old woman who was admitted with bilateral leg cellulitis ( ) symptoms of left foot is improving significantly. No chest pain polyps. No fever. On exam, alert and oriented x2. Pulse 96. Blood pressure 140/70. Respiratory rate 17, Temperature 97.9, pulse ox 94% on 2 L. HEENT: Conjunctivae normal . NECK: NO jugular venous distention. CARDIOVASCULAR: S1, S2, muffled. RESPIRATORY: Breath sounds diminished at the bases. A few ( ) no rhonchi. No crackles. ABDOMEN: Soft. Nontender. Legs: No edema. Cellulitis present. CENTRAL NERVOUS SYSTEM: No focal deficits. LABS: Sodium 142, potassium 3.1. ASSESSMENT: 1. Bilateral leg cellulitis and osteomyelitis of the left foot with sepsis, present on admission. 2. Acute urinary tract infection with Escherichia coli present on admission catheter asscociated. 3. Thrombocytosis reactive, present on admission. 4. Hyponatremia. 5. Hypokalemia. 6. History of severe protein calorie malnutrition with body mass index 16.4% present on admission. 7. Anemia, normocytic possibly nutritional. 8. Hypocalcemia. 9. Gait dysfunction. 10. History of pneumonia. 11. History of ( ). 12. History of nicotine dependence. Chronic long-standing. 13. History of increased creatinine with acute renal failure, possible prerenal, present on admission. 14. FULL CODE. RECOMMENDATIONS AND DISCUSSION: Recommend to continue the current medications. Continue with monitoring, symptomatic treatment. ( ). Guarded prognosis because of multiple complex medical issues. Further recommendations to follow. MTDD
[2016-11-13] MEDS: POTASSIUM BICARB-CITRIC ACID 25 MEQ TABLET.EFF PO SCH (18:08)
[2016-11-13] MEDS: MELATONIN 3 MG TABLET PO SCH (20:47)
[2016-11-13 22:08] VITALS: RESP 16
[2016-11-14 06:23] LABS: Basophils % (A) 1 %; CH 29.9; CHCM 32.2; Eosinophils # (A) 0.3 k/uL (0-0.7); Eosinophils % (A) 5 %; HCT 29.4 % (34.0-46.0); HDW 2.78; HGB 9.2 gm/dL (11.4-16.0); Luc # (Auto) 0.22; Luc % (Auto) 4; Lymphocytes % (A) 16 %; MCH 29.2 pg (25.0-35.0); MCHC 31.3 g/dL (31.0-37.0); MCV 93.4 fL (80.0-100.0); Mean Platelet Volume 6.5; Monocytes # (A) 0.4 k/uL (0-1.0); Monocytes % (A) 6 %; Neutrophils # (A) 4.3 k/uL (1.3-7.7); Neutrophils % (A) 70 %; RBC 3.15 m/uL (3.80-5.40); WBC 6.2 k/uL (3.8-10.6); WBC (Perox) 6.55
[2016-11-14 06:32] LABS: Anion Gap 6 mmol/L; Blood Urea Nitrogen 25 mg/dL (7-17); Calcium 7.6 mg/dL (8.4-10.2); Carbon Dioxide 32 mmol/L (22-30); Chloride 108 mmol/L (98-107); Glucose 80 mg/dL (74-99); Magnesium 1.7 mg/dL (1.6-2.3); Non-African American GFR(MDRD) >60 (>60 ml/min/1.73 sqM); Potassium 3.3 mmol/L (3.5-5.1); Sodium 146 mmol/L (137-145)
[2016-11-14] MEDS: PANTOPRAZOLE 40 MG TABLET PO SCH (09:08)
[2016-11-14] MEDS: HEPARIN SODIUM,PORCINE 5,000 UNIT/ML 1 ML VIAL SQ SCH ×2 (09:08→20:42)
[2016-11-14] MEDS: POTASSIUM BICARB-CITRIC ACID 25 MEQ TABLET.EFF PO SCH (09:08)
[2016-11-14] MEDS: FLUCONAZOLE 100 MG TAB PO SCH (09:08)
[2016-11-14] MEDS: VANCOMYCIN 750 MG in SODIUM CHLORIDE 0.9% 250 ML IVPB SCH ×2 (09:17→21:25)
--- NOTE | 2016-11-14 11:12 | PN ---
DATE OF SERVICE: 11/13/2016 Reason for followup is: 1. Right lower extremity wound and cellulitis. 2. Urinary tract infection. INTERVAL HISTORY: The patient is afebrile. She seems to be awake and alert, patient comfortable. Denies any significant chest pain, shortness of breath, cough, abdominal pain or any worsening pain in the right leg area. On examination, blood pressure is 135/63 with a pulse of 57, temperature 94.7. She is 91% on room air. General description is an elderly female, lying in bed in no distress. RESPIRATORY SYSTEM: Unlabored breathing. Clear to auscultation anteriorly. HEART: S1, S2 , regular rate and rhythm. ABDOMEN: Soft, no tenderness. Right leg wound is dressed, no obvious drainage on the dressing. LABS: BUN of 19, creatinine 0.60. DIAGNOSTIC IMPRESSION AND PLAN: 1. Patient with right lower extremity wound and cellulitis. Follow the patient currently. Continue with the vancomycin, pharmacy to dose to continue for another 10 days to 2 weeks. Continue local wound care with Aquacel Silver. 2. Patient with catheter-associated urinary tract infection urine with yeast. She is on diflucan. She will continue for another 4 to 5 days. MTDD
[2016-11-14] MEDS: MELATONIN 3 MG TABLET PO SCH (20:42)
[2016-11-14 21:39] VITALS: PULSE 87
[2016-11-15] MEDS: FLUCONAZOLE 100 MG TAB PO SCH (07:05)
[2016-11-15] MEDS: POTASSIUM BICARB-CITRIC ACID 25 MEQ TABLET.EFF PO SCH (07:05)
[2016-11-15] MEDS: HEPARIN SODIUM,PORCINE 5,000 UNIT/ML 1 ML VIAL SQ SCH (07:05)
[2016-11-15] MEDS: PANTOPRAZOLE 40 MG TABLET PO SCH (07:05)
[2016-11-15 07:48] VITALS: BP 122/76; TEMP 98.6
--- NOTE | 2016-11-15 08:05 | PN ---
DATE OF SERVICE: 11/14/2016 This 81-year-old woman is admitted with bilateral leg cellulitis, also had features of osteomyelitis. Dr. Jiménez is following the patient closely. PICC line was inserted. Patient had a MRSA grown from the culture, vancomycin outpatient. No chest pain or palpitation, no fever. On exam, alert and oriented x3. Pulse 85, blood pressure 138/70, respirations 16, temperature 97.8, pulse ox 94% on room air. HEENT: Conjunctivae normal. NECK: No jugular venous distension. CARDIOVASCULAR: S1, S2, muffled. RESPIRATORY: Breath sounds diminished at the bases, a few scattered rhonchi, no crackles. Abdomen is soft, nontender. Legs also present, dressed. NERVOUS SYSTEM: No focal deficits. LABS: WBC 6.8, hemoglobin 9.4, sodium 146, potassium 3.3. ASSESSMENT: 1. Bilateral leg cellulitis, noted erythema of the left foot with sepsis, present on admission. 2. Acute urinary tract infection with Escherichia coli present on admission, catheter-associated possibly. 3. Thrombocytopenia reactive, present on admission. 4. Hyponatremia. 5. Hypokalemia. 6. History of severe protein calorie malnutrition with body mass index of 16.4, present on admission. 7. Anemia, normocytic, possibly nutritional. 8. Hypocalcemia. 9. Gait dysfunction. 10. History of pneumonia. 11. History of nicotine dependence, chronic, longstanding. 12. History of increased creatinine with acute renal failure, possibly prerenal present on admission with acute tubular necrosis. 13. FULL CODE. RECOMMENDATION AND DISCUSSION: In this 81-year-old woman who presented with multiple complex medical issues, will monitor the patient closely, continue with the current medications, continue with symptomatic treatment and supplement potassium, continue to monitor. Otherwise, repeat labs. DVT prophylaxis. Continue with antibiotics. The patient is on vancomycin. Further recommendations to follow.
--- NOTE | 2016-11-15 09:24 | P.CON ---
Psychiatric Consult - . Consult date: 11/15/16 Consult:: Mrs. Call is an 81-year-old female admitted to medicine service on with bilateral lower leg cellulitis. Medicine service consulted psychiatry to evaluate competency. I reviewed the medical record and interviewed Mrs. Call. According to medical record a [facility] concerned about her physical health. She was bedbound; unable to ambulate because of extensive infection of her legs and feet. She was able to give me a general description of the reasons for hospitalization i.e. that she had an infection of her feet. She understood that her treatment included intravenous antibiotics. She was unsure about the physician's recommendation for continued treatment. However, she understood that without treatment her infection may occur or worsen. She understands that she is disabled from her health problems and she requires medical care. She believes that the medical care would improve her overall health and reduce her pain. She would like to return home and continue treatment as an outpatient. However she understands that she was unable to manage on her own. She talked about not being able to return home unless she can find a house mate or someone to assist her with the care. She stated the doctors talked to her about "going to another place" instead of to her home. She presented as a frail 9-year-old woman who was pleasant on approach. She maintained eye contact and attended to the interview. She had no distinguishing features or prominent physical abnormalities. She had a bright facial expression. She was alert and oriented to person and time. She was not agitated and demonstrated no abnormal involuntary movements. Her speech was spontaneous with normal rate, rhythm and volume. Her affect was stable and appropriate. She denied suicidal ideation or wishes. She denied depressive cognitions such as hopelessness or worthlessness. She denied obsessions or ruminations. She denied ideas of reference or paranoid ideation. Her thinking was concrete but her associations were coherent. She denied hallucinations and did not appear to responding to internal stimuli. We completed the Mini-Mental State Exam. Her total error score was 20/30; a score less than 27 suggest impaired cognitive functioning. She was oriented to the date, month, year and season. She knew the country and the state but could not remember the the town, hospital or the floor. She was able to register 3 words ([place], table and coin) after 3 trials. She was able to spell the word "world" forwards but not backwards. She recalled 1 of the 3 words, "coin", after the above distraction exercise. She was able to name a "pencil" and a "greenwood". She was able to repeat the phrase "no if's, hands, or but's.". She was able to follow a 3 stage command. She was able to read and follow a sentence "close your eyes", write a sentence (deity subject and her friend), and copied the intersecting diagram. IMPRESSION: She is an 81-year-old woman admitted to medicine service with cellulitis and possible osteomyelitis successfully treated with IV antibiotics. She lives alone and lacks the supports to maintain her independence and attend of her medical needs. The current recommendation includes rehabilitation services and possible supported living environment. During our interview she was able to communicate a choice of treatment, understand her need for medical treatment, appreciate her current situation and its consequences and discussed reasons for her treatment and recommended placement options. During formal mental status she shows some impairment in cognitive functioning. RECOMMENDATION: She appears to have the ability to make her own medical decisions at this time but has cognitive limitations, multiple health problems and lack of social supports to live independently. She would benefit from rehabilitative services and/or supportive housing.
[2016-11-15] MEDS ORDERED: POTASSIUM BICARB-CITRIC ACID 25 MEQ TABLET.EFF PO STA (11:21)
[2016-11-15 12:43] LABS: Anion Gap 7 mmol/L; Blood Urea Nitrogen 28 mg/dL (7-17); Calcium 7.7 mg/dL (8.4-10.2); Carbon Dioxide 32 mmol/L (22-30); Chloride 104 mmol/L (98-107); Glucose 76 mg/dL (74-99); Non-African American GFR(MDRD) >60 (>60 ml/min/1.73 sqM); Potassium 4.1 mmol/L (3.5-5.1); Sodium 143 mmol/L (137-145)
--- NOTE | 2016-11-15 12:51 | DS ---
DATE OF ADMISSION: 10/31/2016 DATE OF DISCHARGE: Please note this 81-year-old woman was admitted with cellulitis and osteomyelitis and urinary tract infection and multiple other medical problems. The patient was treated symptomatically. Patient improved significantly. The patient slated to go to [facility]. The patient has improved significantly. On exam, vitals are stable. CARDIOVASCULAR SYSTEM: S1, S2 muffled. ABDOMEN: Soft. CENTRAL NERVOUS SYSTEM: No focal deficits. DISCHARGE ADVICE AND MEDICATIONS: 1. Diet is cardiac. 2. Follow up with [facility] 3. Follow-up with wound clinic. 4. Follow with Dr. Castro. 5. Follow up with infectious disease as recommended. 6. Xanax 0.25 t.i.d. p.r.n. 7. Diflucan 100 mg p.o. daily for 3 more days. 8. Melatonin 3 mg q.h.s. 9. Multivitamins 1 p.o. daily. 10. Protonix 40 mg daily. 11. Potassium bicarb 25 mg p.o. daily 12. PICC line care. 13. Vancomycin 1000 mg IV daily for 14 more bags. 14. Ultram 50 mg t.i.d. p.r.n. Once again, the patient will be discharged in a stable condition with guarded prognosis. MTDD
[2016-11-15] MEDS ORDERED: VANCOMYCIN TROUGH DUE 1 EACH MISC MISCELLANE ONE (13:00)
--- NOTE | 2016-11-15 13:56 | PN ---
DATE OF SERVICE: 11/14/2016 Reason for followup is: 1. Right lower extremity wound and cellulitis. 2. UTI. INTERVAL HISTORY: The patient is afebrile. She is currently breathing comfortably. Denies having any chest pain or shortness of breath or cough. No significant pain in the right leg area or any diarrhea. On examination, blood pressure is 138/70 with a pulse of 85, temperature 97.8. She is 91% on 2 L nasal cannula. General description is an elderly female up in the chair in no distress. RESPIRATORY SYSTEM: Unlabored breathing. Clear to auscultation anteriorly. HEART: S1, S2 with regular rate and rhythm. ABDOMEN: Soft, no tenderness. The right leg is currently dressed up, overall swelling or redness has improved. LABS: Hemoglobin 9.1, white count is 6.2 with a BUN of 25, creatinine 0.71. DIAGNOSTIC IMPRESSION AND PLAN: 1. Patient with right lower extremity wound with secondary cellulitis. The patient is seen overall improvement with the vancomycin. She is currently waiting for placement. 2. Yeast urinary tract infection, currently on oral Diflucan which she will need for another 4 or 5 days.
[2016-11-15] MEDS: VANCOMYCIN 750 MG in SODIUM CHLORIDE 0.9% 250 ML IVPB SCH (14:20)
[2016-11-15] MEDS: traMADol 50 MG TAB PO PRN (16:52)
== END 2016-11-15 17:10 | DRG 871 ==
LOC: EC 14:39 → 5MS5E 15:09
PROVIDERS: ADMIT Internal Medicine; ATTEND Internal Medicine
DX: A41.9 Sepsis, unspecified organism (principal); E43 Unspecified severe protein-calorie malnutrition; N17.9 Acute kidney failure, unspecified; E87.2 Acidosis; E86.0 Dehydration; L03.115 Cellulitis of right lower limb; E87.1 Hypo-osmolality and hyponatremia; D64.9 Anemia, unspecified; B37.49 Other urogenital candidiasis; R64 Cachexia; L03.116 Cellulitis of left lower limb; M86.9 Osteomyelitis, unspecified; Z68.1 Body mass index [BMI] 19.9 or less, adult; T83.518A Infection and inflammatory reaction due to other urinary catheter, initial encounter; E83.51 Hypocalcemia; B96.20 Unspecified Escherichia coli [E. coli] as the cause of diseases classified elsewhere; D47.3 Essential (hemorrhagic) thrombocythemia; E87.6 Hypokalemia; K62.3 Rectal prolapse; Z74.01 Bed confinement status; Z87.01 Personal history of pneumonia (recurrent); Z87.891 Personal history of nicotine dependence; Y84.6 Urinary catheterization as the cause of abnormal reaction of the patient, or of later complication, without mention of misadventure at the time of the procedure
CPT/HCPCS: 36415; 36569; 71010; 72170; 74022; 74230; 76937; 77001; 78315; 80048; 80053; 80202; 81001; 82550; 82553; 82565; 83605; 83735; 84100; 84484; 85025; 85027; 85610; 85730; 87040; 87086; 93005; 94760; 96365; 96366; 96375; 99285

== ENCOUNTER 2016-11-24 19:32 | Emergency (ER) | payer MEDICARE ==
[2016-11-24 19:47] VITALS: BP 132/62; PULSE 86; RESP 18; TEMP 97.6
--- NOTE | 2016-11-24 20:19 | ED ---
General Adult HPI - General Chief complaint: Fall Stated complaint: Fall/Altered Mental Status Time Seen by Provider: 11/24/16 19:45 Source: patient, EMS, RN notes reviewed Mode of arrival: EMS Limitations: no limitations - History of Present Illness Initial comments: This is an 81-year-old female presents to the emergency department after she had fallen. Patient states she was using a walker with wheels which she shouldn 't been using because her feet have sores on them. Patient states she fell backwards hit her head but did not lose consciousness does not complain of a headache denies any significant neck pain. Patient denies any numbness weakness. Patient states he has a little tenderness to her posterior ribs on the left. Patient denies any difficulty breathing or shortness of breath per patient denies any upper extremity pain. Patient denies any lower extremity pain. Patient denies any abdominal pain. Patient states she did not want to come but her son made her come so she did come. Patient states her right leg is swollen and being looked after by . already she had the nurses rewrap it yesterday and she does not want it looked at today she states it's been ongoing for a while now there is no change. - Related Data Home Medications Medication Instructions Recorded Confirmed Cholecalciferol (Vitamin D3) 1,000 unit PO DAILY 11/22/16 11/22/16 [Children's Vitamin D3] Previous Rx's Medication Instructions Recorded ALPRAZolam [Xanax] 0.25 mg PO TID PRN #30 tab 11/09/16 Multivitamins, Thera [Multivitamin] 1 tab PO DAILY #30 tablet 11/09/16 Pantoprazole [Protonix] 40 mg PO AC-BRKFST #0 tablet. 11/09/16 traMADol HCl [Ultram] 50 mg PO QID PRN #20 tab 11/09/16 Fluconazole [Diflucan] 100 mg PO DAILY #5 tab 11/15/16 Melatonin 3 mg PO HS tablet 11/15/16 Potassium Bicarb-Citric Acid 25 meq PO DAILY tablet.eff 11/15/16 [K-Lyte] Vancomycin 1,000 mg IVPB Q24HR #7 bag 11/15/16 Allergies Allergy/AdvReac Type Severity Reaction Status Date / Time No Known Allergies Allergy Verified 11/22/16 13:56 Review of Systems ROS Statement: Those systems with pertinent positive or pertinent negative responses have been documented in the HPI. ROS Other: All systems not noted in ROS Statement are negative. Past Medical History Past Medical History: Pneumonia Additional Past Medical History / Comment(s): prolapsed rectum-since january 2003 , leg sores since 2002 History of Any Multi-Drug Resistant Organisms: MRSA Past Surgical History: Hysterectomy Past Anesthesia/Blood Transfusion Reactions: No Reported Reaction Past Psychological History: No Psychological Hx Reported Smoking Status: Former smoker Past Alcohol Use History: None Reported Past Drug Use History: None Reported - Past Family History Son(s) History Unknown: Yes Mother History Unknown: Yes General Exam - General Exam Comments Initial Comments: GENERAL: Patient is well-developed and well-nourished. Patient is nontoxic and well- hydrated and is in no acute distress. There is a slight area of tenderness in the posterior scalp. She also has some posterior left rib pain. ENT: Neck is soft and supple. No significant lymphadenopathy is noted. Oropharynx is clear. Moist mucous membranes. Neck has full range of motion without eliciting any pain. EYES: The sclera were anicteric and conjunctiva were pink and moist. Extraocular movements were intact and pupils were equal round and reactive to light. Eyelids were unremarkable. PULMONARY: Unlabored respirations. Good breath sounds bilaterally. No audible rales rhonchi or wheezing was noted. CARDIOVASCULAR: There is a regular rate and rhythm without any murmurs gallops or rubs ABDOMEN: Soft and nontender with normal bowel sounds. No palpable organomegaly was noted. There is no palpable pulsatile mass. SKIN: Skin is clear with no lesions or rashes and otherwise unremarkable. NEUROLOGIC: Patient is alert and oriented x3. Cranial nerves II through XII are grossly intact. Motor and sensory are also intact. Normal speech, volume and content. Symmetrical smile. MUSCULOSKELETAL: Patient has a swollen right lower extremity which is very tender to palpation it is already wrapped up in a fresh bandage which she states the nurses put on yesterday. Patient states this swollen this is not changed the redness has not changed and the tenderness is not changed. According to her the nurses saw yesterday and agree that it is no different than it has been. Patient does not want them wrapped or looked at at this time. She states she is already doctoring for it LYMPHATICS: No significant lymphadenopathy is noted PSYCHIATRIC: Normal psychiatric evaluation. Limitations: no limitations Course Vital Signs 11/24/16 19:41 Temperature 97.6 F Pulse Rate 86 Respiratory 18 Rate Blood Pressure 132/62 O2 Sat by Pulse 97 Oximetry Medical Decision Making - Medical Decision Making CT of the brain and C-spine show no acute amounts. Chest x-ray indicated there may be some slight congestive heart failure. I went in to reinterview the patient she stated she was not short of breath she was having no difficulty breathing. She was on room air at the time she was oxygenating 96%. At this point time patient has no complaints and states that she wants to go back to her halfway. Disposition Clinical Impression: Fall, Scalp contusion Disposition: HOME SELF-CARE Instructions: Fall Prevention for Older Adults (ED) Referrals: Abhijit Wilson DO [Primary Care Provider] - 1-2 days Time of Disposition: 21:23
--- NOTE | 2016-11-24 20:49 | XR ---
EXAMINATION TYPE: XR chest 2V DATE OF EXAM: 11/24/2016 8:45 PM COMPARISON: 11/01/2016 HISTORY: Shortness of breath TECHNIQUE: Frontal and lateral views of the chest are obtained. FINDINGS: Scattered senescent parenchymal changes noted. Hyperinflation compatible with COPD. No evidence for infiltrate. No evidence for atelectasis. The heart is mildly enlarged with pulmonary venous congestion and small effusions. Mediastinal structures are stable and grossly unremarkable. No evidence for hilar prominence. Degenerative changes dorsal spine. IMPRESSION: 1. Correlate for mild congestive failure.
--- NOTE | 2016-11-24 20:59 | CT ---
EXAMINATION TYPE: CT brain tracey wo con DATE OF EXAM: 11/24/2016 8:49 PM COMPARISON: 08/24/2015 HISTORY: neck pain post fall CT DLP: [address] of the brain was performed. The ventricles, basal cisterns and sulci overlying the cerebral convexities demonstrate moderate enla rgement. There is no evidence for intracranial hemorrhage or sulcal effacement. There is decreased attenuation about the periventricular white matter and deep white matter of both cerebral hemispheres , compatible with chronic small vessel ischemia. No mass effects are seen. If symptoms persist cons ider MRI. Osseous calvarium is intact. Right posterior parietal scalp hematoma is small. IMPRESSION: 1. Age related atrophic and chronic small vessel ischemic change without acute intracranial process seen at this time. CT Cervical Spine: Unenhanced CT of the cervical spine was performed with bone and soft tissue window settings submitted . Coronal and sagittal reconstruction is obtained. Chronic mild anterior subluxation of C4 on C5 measuring 2 mm in related to degenerative change of the cervical apophyseal joints. No evidence for acute cervical fracture . Scattered degenerative disc disease and spondylosis. Biapical scarring. IMPRESSION: 1. No evidence for acute fracture or subluxation of the cervical spine.
== END 2016-11-24 21:50 | disposition home or self-care (01) ==
LOC: EC 19:32
DX: S00.03XA Contusion of scalp, initial encounter (principal); W01.10XA Fall on same level from slipping, tripping and stumbling with subsequent striking against unspecified object, initial encounter; M79.89 Other specified soft tissue disorders; Z87.891 Personal history of nicotine dependence
CPT/HCPCS: 70450; 71020; 72125; 99284

== ENCOUNTER 2017-01-25 11:21 | Day surgery (SDC) | payer MEDICARE, OTHER ==
[2017-01-20 14:33] VITALS: BMI 23.0
[~2017-01-25 11:21] MED LIST: LACTATED RINGERS 1,000 ML IV SCH; LIDOCAINE 1% 20 ML VIAL (10MG/ML) FOR IV START INTRADERMA PRN
[2017-01-25] MEDS: CYCLOPENTOLATE 1% OPHTH SOLN 2 ML BTL OP ONE ×3 (11:56→12:25)
[2017-01-25] MEDS: FLURBIPROFEN 0.03% OPHTH DROPS 2.5 ML BTL OP ONE ×3 (11:59→12:32)
[2017-01-25] MEDS: PHENYLEPHRINE 10% OPHTH DROPS 5 ML BTL OP ONE ×3 (12:03→12:27)
[2017-01-25 12:21] VITALS: RESP 20; TEMP 98.4
[2017-01-25] MEDS: BUPIVACAINE (PF) 0.75% 5 ML, LIDOCAINE 4% (PF) 5 ML, HYALURONIDASE, HUMAN RECOMB 150 UNIT MISCELLANE ONE ×6 (13:20→13:31)
[2017-01-25] MEDS ORDERED: PROPOFOL 10 MG/ML 20 ML VIAL IV ONE (13:22)
[2017-01-25] MEDS ORDERED: BALANCED SALT IRRIG SOLN COMB2 15 ML IRRIG.SOLN IRRIGATION ONE ×2 (13:24→13:31)
[2017-01-25] MEDS ORDERED: TETRACAINE 0.5% OPHTH (PF) DROPS 4 ML BTL RIGHT EYE ONE ×2 (13:25→13:31)
[2017-01-25] MEDS ORDERED: HYALURONATE SODIUM INTRAOCULAR 1 EACH SYRINGE (10MG/ML) INTRAOCULA ONE ×2 (13:25→13:31)
[2017-01-25] MEDS ORDERED: EPINEPHrine (PF) 0.5 ML in BALANCED SALT IRRIG SOLN COMB2 500 ML IRRIGATION ONE (13:52)
[2017-01-25 13:56] VITALS: BP 102/53; PULSE 81
--- NOTE | 2017-01-25 13:58 | P.OP ---
Date of Procedure: 01/25/17 Procedure(s) Performed: PREOPERATIVE DIAGNOSIS: Cataract, right eye. POSTOPERATIVE DIAGNOSIS: Cataract, right eye. OPERATION: Phacoemulsification cataract, right eye. DESCRIPTION OF PROCEDURE: The patient was taken to the preoperative holding area. Intravenous Propofol was given so as to bring about adequate sedation. The following mixture was given for local anesthesia: 5 mL of 2% lidocaine, 5 mL of 0.75% Marcaine, and 1 mL of Wydase. Approximately 4 mL was injected in the retrobulbar space of the surgical eye. Additional 1 mL was then directed to the temporal area of the surgical eye. This was performed to allow adequate neurological block of the facial muscles. The patient was revived and then taken into the operative room. The patient was prepped and draped in the usual sterile manner for the operative eye. A lid speculum was put into position. The conjunctiva was resected back from the limbus in the 12 o'clock position. Bleeding was controlled with electrocautery. A #69 blade was then used and a half-thickness scleral incision approximately 1-mm posterior to the limbus was made on bare sclera. This was shelved in the clear cornea using a crescent knife. The steep axis of astigmatism was marked using a pre-inked corneal marking device. Next a 15-degree blade was used to make a stab incision at the 3 o'clock position at the corneolimbal interface. Keratome blade was then used and the superior wound was extended into the anterior chamber. Viscoelastic was injected into the anterior chamber and to maintain its form. Next, a cystotome was used and a continuous anterior capsulotomy was made without difficulty. Hydrodissection using a blunt cannula and BSS was performed. Phaco probe was then employed and a groove extending from 12 to 6 o' clock in the lens was created. A Nabeel wand was used through the stab incision so as to perform a divide and conquer technique. Next an irrigation aspiration probe was utilized and any residual cortex was removed from the eye. Again, viscoelastic was injected into the anterior chamber. An Alvino toric posterior chamber lens implant was placed in the cartridge and injected into the anterior chamber without difficulty. The Sinskey hook was utilized to spin the lens into position and this was again performed without any difficulty. The irrigation and aspiration probe was again employed and any residual viscoelastic was removed from the eye. Then BSS was injected into the limbal stab incision and the anterior chamber re-inflated. The conjunctiva was reapproximated using electrocautery. One drop of 0.25% Timoptic was placed over the corneal along with TobraDex ophthalmic ointment. Two sterile patches and a Monzon eye shield were taped into position. The patient was transported to the recovery room in stable condition. Pathology: none sent Condition: stable Disposition: same day
[2017-01-25] MEDS ORDERED: GENTAMICIN/PREDNISOL AC OPHTH OINT 3.5GM OPHTHALMIC ONE (23:00)
[2017-01-25] MEDS ORDERED: TIMOLOL 0.5% OPHTH SOLN (PF) 0.2 ML DROPERETTE OP ONE (23:00)
== END 2017-01-25 14:35 | disposition home or self-care (01) ==
LOC: OR 11:21
PROVIDERS: ATTEND Ophthalmology
DX: H26.9 Unspecified cataract (principal); Z87.891 Personal history of nicotine dependence; I96 Gangrene, not elsewhere classified; L03.115 Cellulitis of right lower limb; Z79.899 Other long term (current) drug therapy
CPT/HCPCS: 66984; V2787; C1780; J2001; J3470; J0171; J2704

== ENCOUNTER 2017-02-21 12:04 | Inpatient (IN) | payer MEDICARE, OTHER ==
[2017-02-21] MEDS ORDERED: ONDANSETRON 4 MG/2 ML VIAL IVP STA (12:34)
[2017-02-21] MEDS ORDERED: MORPHINE SULFATE 4 MG/ML SYRINGE IVP STA (12:34)
[2017-02-21 13:02] LABS: Basophils # (A) 0.1 k/uL (0-0.2); Basophils % (A) 1 %; Eosinophils # (A) 0.1 k/uL (0-0.7); Eosinophils % (A) 2 %; HDW 2.77; HGB 10.5 gm/dL (11.4-16.0); Hypochromasia Slight; Luc # (Auto) 0.15; Luc % (Auto) 3; Lymphocytes # (A) 0.7 k/uL (1.0-4.8); Lymphocytes % (A) 13 %; MCH 27.7 pg (25.0-35.0); MCHC 31.7 g/dL (31.0-37.0); MCV 87.6 fL (80.0-100.0); Mean Platelet Volume 6.7; Monocytes # (A) 0.3 k/uL (0-1.0); Monocytes % (A) 7 %; Neutrophils # (A) 3.8 k/uL (1.3-7.7); Neutrophils % (A) 74 %; RBC 3.77 m/uL (3.80-5.40); RDW 13.9 % (11.5-15.5); WBC 5.1 k/uL (3.8-10.6); WBC (Perox) 5.19
--- NOTE | 2017-02-21 13:06 | ED ---
General Adult HPI - General Source: family, EMS, RN notes reviewed Mode of arrival: EMS Limitations: altered mental status, physical limitation <Man Cabrera - Last Filed: 02/21/17 13:58> <Bert Gonsales - Last Filed: 02/21/17 14:18> - General Chief complaint: Wound/Laceration Stated complaint: Wound Infection Time Seen by Provider: 02/21/17 12:28 - History of Present Illness Initial comments: Is an 82-year-old female presents emergency department via EMS chief complaint right leg and foot infection. Patient is a poor historian though she states that she's had a wound on her foot for several years but states his been getting worse. Patient does see wound care and was sent in by wound care nurse secondary to increase swelling drainage, fever at home on a fall or. Patient states she is not currently taking antibiotics that she knows of. Patient has been seen at the clinic in the past. (Man Cabrera) - Related Data Home Medications Medication Instructions Recorded Confirmed Ascorbic Acid [Vitamin C] 1,000 mg PO DAILY 01/20/17 02/21/17 Furosemide [Lasix] 20 mg PO DAILY 01/20/17 02/21/17 Verna Root Tablet 550 mg PO DAILY 01/20/17 02/21/17 Grapefruitseed Extract 125 mg PO BID 01/20/17 02/21/17 Multivits-Min/Iron/FA/Lutein 1 each PO DAILY 01/20/17 02/21/17 [Centrum Silver Women Tablet] [place] Extract 1 each PO DAILY 01/20/17 02/21/17 Tumeric 450 mg PO DAILY 01/20/17 02/21/17 Vitamin B Complex 1 each PO DAILY 01/20/17 02/21/17 Diclofenac 0.1% Ophth Soln 1 drops RIGHT EYE BID 02/21/17 02/21/17 [Voltaren 0.1% Ophth Soln] Difluprednate [Durezol] 1 drop RIGHT EYE BID 02/21/17 02/21/17 Previous Rx's Medication Instructions Recorded traMADol HCl [Ultram] 50 mg PO QID PRN #20 tab 11/09/16 Allergies Allergy/AdvReac Type Severity Reaction Status Date / Time No Known Allergies Allergy Verified 02/21/17 12:12 Review of Systems ROS Other: All systems not noted in ROS Statement are negative. <Man Cabrera - Last Filed: 02/21/17 13:58> ROS Other: All systems not noted in ROS Statement are negative. <Bert Gonsales - Last Filed: 02/21/17 14:18> ROS Statement: Those systems with pertinent positive or pertinent negative responses have been documented in the HPI. Past Medical History Past Medical History: Pneumonia Additional Past Medical History / Comment(s): prolapsed rectum-since january 2003 , leg sores since 2002. dehydration History of Any Multi-Drug Resistant Organisms: None Reported Past Surgical History: Hysterectomy Past Anesthesia/Blood Transfusion Reactions: No Reported Reaction Past Psychological History: No Psychological Hx Reported Smoking Status: Former smoker Past Alcohol Use History: None Reported Past Drug Use History: None Reported - Past Family History Son(s) History Unknown: Yes Mother History Unknown: Yes <Man Cabrera - Last Filed: 02/21/17 13:58> General Exam Limitations: altered mental status, physical limitation General appearance: alert, in no apparent distress Respiratory exam: Present: normal lung sounds bilaterally. Absent: respiratory distress, wheezes, rales, rhonchi, stridor Cardiovascular Exam: Present: regular rate, normal rhythm, normal heart sounds. Absent: systolic murmur, diastolic murmur, rubs, gallop, clicks Extremities exam: Present: other (Right foot/lower leg there is extensive skin erosion debridement noted, currently drainage with some bloody drainage also there is tenderness with palpation) Skin exam: Present: warm <Man Cabrera - Last Filed: 02/21/17 13:58> Medical Decision Making - Lab Data Result diagrams: 02/21/17 12:15 02/21/17 12:15 <Man Cabrera - Last Filed: 02/21/17 13:58> - Lab Data Result diagrams: 02/21/17 12:15 02/21/17 12:15 <Bert Gonsales - Last Filed: 02/21/17 14:18> - Medical Decision Making The patient was seen and examined. All diagnostics were reviewed. The case is discussed with internal medicine and they're agreeable with admission with infectious disease and vascular to consult. The case is discussed with the PA and agree with the findings as documented. (Bert Gonsales) - Lab Data Lab Results 02/21/17 02/21/17 02/21/17 Range/Units 12:15 12:15 12:15 WBC 5.1 (3.8-10.6) k/uL RBC 3.77 L (3.80-5.40) m/uL Hgb 10.5 L (11.4-16.0) gm/dL Hct 33.0 L (34.0-46.0) % MCV 87.6 (80.0-100.0) fL MCH 27.7 (25.0-35.0) pg MCHC 31.7 (31.0-37.0) g/dL RDW 13.9 (11.5-15.5) % Plt Count 562 H (150-450) k/uL Neutrophils % 74 % Lymphocytes % 13 % Monocytes % 7 % Eosinophils % 2 % Basophils % 1 % Neutrophils # 3.8 (1.3-7.7) k/uL Lymphocytes # 0.7 L (1.0-4.8) k/uL Monocytes # 0.3 (0-1.0) k/uL Eosinophils # 0.1 (0-0.7) k/uL Basophils # 0.1 (0-0.2) k/uL Hypochromasia Slight Sodium 137 (137-145) mmol/L Potassium 4.2 (3.5-5.1) mmol/L Chloride 102 (98-107) mmol/L Carbon Dioxide 25 (22-30) mmol/L Anion Gap 10 mmol/L BUN 35 H (7-17) mg/dL Creatinine 0.60 (0.52-1.04) mg/dL Est GFR (MDRD) Af Amer >60 (>60 ml/min/1.73 sqM) Est GFR (MDRD) Non-Af >60 (>60 ml/min/1.73 sqM) Glucose 108 H (74-99) mg/dL Plasma Lactic Acid Sina 1.1 (0.7-2.0) mmol/L Calcium 8.8 (8.4-10.2) mg/dL Total Bilirubin 0.3 (0.2-1.3) mg/dL AST 22 (14-36) U/L ALT 28 (9-52) U/L Alkaline Phosphatase 52 (38-126) U/L C-Reactive Protein 78.3 H (<10.0) mg/L Total Protein 6.2 L (6.3-8.2) g/dL Albumin 2.8 L (3.5-5.0) g/dL Disposition <Man Cabrera - Last Filed: 02/21/17 13:58> <Bert Gonsales - Last Filed: 02/21/17 14:18> Clinical Impression: Cellulitis of foot, Osteomyelitis of foot Referrals: None,Stated [Primary Care Provider] - 1-2 days
[2017-02-21 13:15] LABS: ALT 28 U/L (9-52); AST 22 U/L (14-36); Alkaline Phosphatase 52 U/L (38-126); Anion Gap 10 mmol/L; Blood Urea Nitrogen 35 mg/dL (7-17); C Reactive Protein 78.3 mg/L (<10.0); Calcium 8.8 mg/dL (8.4-10.2); Carbon Dioxide 25 mmol/L (22-30); Chloride 102 mmol/L (98-107); Glucose 108 mg/dL (74-99); Non-African American GFR(MDRD) >60 (>60 ml/min/1.73 sqM); Potassium 4.2 mmol/L (3.5-5.1); Sodium 137 mmol/L (137-145); Total Bilirubin 0.3 mg/dL (0.2-1.3); Total Protein 6.2 g/dL (6.3-8.2)
--- NOTE | 2017-02-21 13:50 | XR ---
EXAMINATION TYPE: XR foot complete RT DATE OF EXAM: 02/21/2017 1:34 PM COMPARISON: 08/23/2015 HISTORY: 82-year-old female with pain, multiple open wounds at the ankle and around the toes and foot . TECHNIQUE: 3 views FINDINGS: Diffuse osteopenia and soft tissue swelling. Questionable small focal erosion along the dorsal head o f the second middle phalanx along the lateral aspect. Otherwise, no additional discrete osseous erosi on is seen. No displaced fracture. Type I or type II accessory navicular. Pes planus. IMPRESSION: 1. Possible subtle erosion at the second middle phalangeal head which raises possibility of osteomyel itis especially if there is an overlying ulcer here. Consider coned down views of the second digit to confirm. 2. Marked osteopenia and diffuse soft tissue swelling.
[2017-02-21] MEDS ORDERED: IV VANCOMYCIN PER PHARMACY 1 EACH MISC MISCELLANE PRN (13:55)
--- NOTE | 2017-02-21 13:55 | XR ---
EXAMINATION TYPE: XR tibia fibula RT DATE OF EXAM: 02/21/2017 1:35 PM COMPARISON: 08/23/2015 HISTORY: 82 year-old female multiple open wounds and pain TECHNIQUE: 2 views FINDINGS: There is some unchanged smooth periosteal new bone formation along the posterior aspect of the distal third fibular shaft, likely on a reactive basis. No discrete osseous erosion. Some soft tissue ulcer ation noted at the level of the medial malleolus and lateral aspect of the distal leg. No discrete os seous erosions identified. Marked progression and muscular atrophy. IMPRESSION: Some scattered smooth periosteal new bone formation likely chronic and reactive to changes in the ove rlying soft tissues. No clear evidence for osteomyelitis involving the leg.
[2017-02-21] MEDS ORDERED: NALOXONE 0.4 MG/ML 1 ML VIAL IV PRN (14:00)
[2017-02-21] MEDS ORDERED: ONDANSETRON 4 MG/2 ML VIAL IVP PRN (14:00)
[2017-02-21] MEDS ORDERED: AMPICILLIN-SULBACTAM 3 GM in SODIUM CHLORIDE 0.9% 100 ML IVPB STA (14:00)
[2017-02-21] MEDS ORDERED: VANCOMYCIN 750 MG in SODIUM CHLORIDE 0.9% 250 ML IVPB ONE (14:30)
[2017-02-21] MEDS ORDERED: traMADol 50 MG TAB PO PRN (16:21)
--- NOTE | 2017-02-21 16:24 | P.GSCN ---
History of Present Illness History of present illness: 82-year-old white female, patient is known to me from the past she has a long- standing history of ulceration on the right lower extremity involving the right lower leg and and into this spec to the foot had a long discussion with the patient's son [facility] was going to go for second opinion with Dr. Hair but she canceled her appointment notice some drainage and and discomfort and right foot and she's been admitted patient is on vancomycin and local wound care Medical history no history of diabetes history of prolapsed rectum On examination neck is supple no bruit appreciated Chest clear first and second sound normal Abdomen soft nontender vascular examination femorals are palpable patient has a large ulcer and to respect the right lower leg and dorsum aspect of the foot which is chronic Plan is culture of the wound IV antibiotic and local wound care prognosis is guarded I have discussed with the patient in the past she needs a major amputation but she will wants to wait and continue with local wound care follow with you thank very much Past Medical History Past Medical History: Pneumonia Additional Past Medical History / Comment(s): prolapsed rectum-since january 2003 , bilateral leg ulcers (since 2002) and current R ankle/foot ulcers-seen by Dr. Quezada in wound center, past lower leg edema, L cataract, protein calorie malnourished, normocytic anemia, gait dysfunction. History of Any Multi-Drug Resistant Organisms: None Reported Past Surgical History: Hysterectomy Additional Past Surgical History / Comment(s): 01/25/17 R cataract removal with lens implant, picc line insertion since removed, colonoscopy, numerous lower leg /foot debridements. Past Anesthesia/Blood Transfusion Reactions: No Reported Reaction Past Psychological History: No Psychological Hx Reported Additional Psychological History / Comment(s): Pt resides alone. She has private hire aides who assist her with ADLS. She can have limited time in her wheelchair. She is seen be visiting physician, Dr. Rocha. She is alone at night occasionally, but otherwise her aides or family stay with her. Smoking Status: Former smoker Past Alcohol Use History: None Reported Additional Past Alcohol Use History / Comment(s): Pt quit smoking in 2002 Past Drug Use History: None Reported - Past Family History Son(s) History Unknown: Yes Mother History Unknown: Yes Family Medical History: Cancer Additional Family Medical History / Comment(s): Mother had stomach cancer. Father Family Medical History: Coronary Artery Disease (CAD) Medications and Allergies Home Medications Medication Instructions Recorded Confirmed Type Ascorbic Acid [Vitamin C] 1,000 mg PO DAILY 01/20/17 02/21/17 History Furosemide [Lasix] 20 mg PO DAILY 01/20/17 02/21/17 History Verna Root Tablet 550 mg PO DAILY 01/20/17 02/21/17 History Grapefruitseed Extract 125 mg PO BID 01/20/17 02/21/17 History Multivits-Min/Iron/FA/Lutein 1 each PO DAILY 01/20/17 02/21/17 History [Centrum Silver Women Tablet] [place] Extract 1 each PO DAILY 01/20/17 02/21/17 History Tumeric 450 mg PO DAILY 01/20/17 02/21/17 History Vitamin B Complex 1 each PO DAILY 01/20/17 02/21/17 History Diclofenac 0.1% Ophth Soln 1 drops RIGHT EYE BID 02/21/17 02/21/17 History [Voltaren 0.1% Ophth Soln] Difluprednate [Durezol] 1 drop RIGHT EYE BID 02/21/17 02/21/17 History Allergies Allergy/AdvReac Type Severity Reaction Status Date / Time No Known Allergies Allergy Verified 02/21/17 12:12 Surgical - Exam Vital Signs Temp Pulse Resp BP Pulse Ox 97.6 F 79 20 100/54 96 02/21/17 12:05 02/21/17 12:05 02/21/17 12:05 02/21/17 12:05 02/21/17 12:05 Results - Labs 02/21/17 12:15 02/21/17 12:15
[2017-02-21 16:50] LABS: Mean Platelet Volume 6.3
[2017-02-21] MEDS: SODIUM CHLORIDE 0.9% 1,000 ML IV SCH (17:13)
[2017-02-21] MEDS: MORPHINE SULFATE 4 MG/ML SYRINGE IV PRN (18:57)
[2017-02-21] MEDS: DICLOFENAC 0.1% OPHTH SOLN 2.5 ML BTL RIGHT EYE SCH (22:34)
[2017-02-21] MEDS: HEPARIN SODIUM,PORCINE 5,000 UNIT/ML 1 ML VIAL SQ SCH ×2 (22:34→22:38)
[2017-02-21] MEDS: HYDROcodone/APAP 5-325MG 1 EACH TAB PO PRN (22:34)
[2017-02-22] MEDS: MORPHINE SULFATE 4 MG/ML SYRINGE IV PRN (06:22)
[2017-02-22] MEDS: ASCORBIC ACID 500 MG TAB PO SCH (08:19)
[2017-02-22] MEDS: HEPARIN SODIUM,PORCINE 5,000 UNIT/ML 1 ML VIAL SQ SCH ×3 (08:19→21:47)
[2017-02-22] MEDS: DICLOFENAC 0.1% OPHTH SOLN 2.5 ML BTL RIGHT EYE SCH ×3 (08:19→21:52)
[2017-02-22] MEDS: B COMPLEX-VIT C-VIT E-ZINC 1 EACH TAB PO SCH (08:19)
[2017-02-22] MEDS: VANCOMYCIN 750 MG in SODIUM CHLORIDE 0.9% 250 ML IVPB SCH (08:19)
--- NOTE | 2017-02-22 08:20 | CONS ---
DATE OF CONSULTATION: 02/21/2017 REASON FOR CONSULTATION: Right foot osteomyelitis. HISTORY OF PRESENT ILLNESS: Patient is 82-year-old female who has been well known to my service from previous evaluation of ulceration to the right lower extremity for which the patient has received IV antibiotic therapy and has been getting local wound care with Dr. Quezada. The patient has been sent to the [facility] ER for further evaluation of right leg and foot infection. The patient has this wound for many years now with recent worsening. The patient apparently has been evaluated by the wound care nurse and was sent over to the hospital for increased swelling and drainage and fever at home. Subsequently the patient has been evaluated by the ER physician. The patient did have x-rays of the foot that have been suggestive of a second and middle digits with possibility of osteomyelitis. X-rays of tibia and fibula with no clear evidence of osteomyelitis. Patient has been started on vancomycin and admitted to the hospital. I was asked to see the patient for further recommendation. Patient apparently has been evaluated by Dr. Quezada who has been planning for possible major amputation. Awaiting consults on this patient as well as the son. The patient is not a very good historian so most of the information has been obtained from review of the chart. REVIEW OF SYSTEMS: CONSTITUTIONAL: Positive for weakness. EYES: No complaint. ENT: No complaint. RESPIRATORY: No complaint. CARDIOVASCULAR: No complaint. GENITOURINARY: No complaint. GASTROINTESTINAL: No complaint. MUSCULOSKELETAL: As per HPI. INTEGUMENTARY: As per HPI. PSYCHOLOGIC: No complaint. ENDOCRINE: No complaint. NEUROLOGICAL: No complaint. PAST MEDICAL HISTORY: Significant for pneumonia, chronic venostasis ulcers and possible PAD right leg. PAST SURGICAL HISTORY: Hysterectomy, debridement of the right leg wound. SOCIAL HISTORY: Remote history of smoking. No drinking or drug use. FAMILY HISTORY: No pertinent findings were noticed. ALLERGIES: No known drug allergies. Medications currently include the patient is on vancomycin, Ultram, Zofran, Narcan, Theragran, morphine sulfate, heparin, Lasix and [place]. On examination, blood pressure is 111/54 with a pulse of 71, temperature 97. She is 94% on room air. General description is an elderly female, lying in bed in no distress. No tachypnea or accessory muscles of respiration use. HEENT examination shows pallor. There is no scleral icterus. Oral mucous membrane is dry. NECK: Trachea central. There is no thyromegaly. LUNGS: Unlabored breathing. Clear to auscultation anteriorly. HEART: S1, S2. Regular rate and rhythm. ABDOMEN: Soft, no tenderness. Examination of right foot; leg and foot wound on the dorsum is mostly beefy red, however, the patient did have some necrotic changes on the second and third toe. No foul smelling drainage. NEUROLOGICAL: The patient is awake, alert, oriented x3. Mood and affect normal. LABS: Hemoglobin is 10.5, white count 5.1 with a BUN of 35, creatinine 0.6. Wound culture has been obtained which is currently pending. Blood culture obtained, currently pending. DIAGNOSTIC IMPRESSION AND PLAN: Patient with chronic nonhealing wound to the right lower extremity, which the patient has had for many years now with likely underlying peripheral arterial disease with some gangrenous changes to the second and third toe with component of possible osteomyelitis and wet gangrene cannot be entirely excluded. The likely organisms that need to be covered are gram-positive skin marcus, however, underlying gram-negative infection cannot be entirely excluded either in view of the chronicity of these wounds. PLAN: 1. We will continue the patient on vancomycin, pharmacy to target trough of 15. 2. Local wound care with aquacel silver dressing and await further surgical evaluation by Surgery at which time deep culture should be obtained. 3. Will follow on the clinical condition and cultures to further adjust medications if needed. Thank you for this consultation. Will follow this patient along with you. LUBA
[2017-02-22] MEDS ORDERED: FUROSEMIDE 20 MG TAB PO SCH (09:00)
[2017-02-22 09:53] LABS: Basophils % (A) 1 %; CH 27.5; CHCM 30.7; Eosinophils # (A) 0.3 k/uL (0-0.7); Eosinophils % (A) 6 %; HCT 31.5 % (34.0-46.0); HDW 2.75; HGB 9.8 gm/dL (11.4-16.0); Hypochromasia Moderate; Luc # (Auto) 0.17; Luc % (Auto) 3; Lymphocytes # (A) 0.9 k/uL (1.0-4.8); Lymphocytes % (A) 16 %; MCH 27.9 pg (25.0-35.0); MCHC 31.1 g/dL (31.0-37.0); MCV 89.9 fL (80.0-100.0); Mean Platelet Volume 6.7; Monocytes # (A) 0.4 k/uL (0-1.0); Monocytes % (A) 6 %; Neutrophils # (A) 3.8 k/uL (1.3-7.7); Neutrophils % (A) 69 %; RBC 3.51 m/uL (3.80-5.40); RDW 13.8 % (11.5-15.5); WBC 5.6 k/uL (3.8-10.6); WBC (Perox) 5.74
[2017-02-22 10:03] LABS: Anion Gap 5 mmol/L; Blood Urea Nitrogen 35 mg/dL (7-17); Calcium 8.6 mg/dL (8.4-10.2); Carbon Dioxide 27 mmol/L (22-30); Chloride 104 mmol/L (98-107); Glucose 97 mg/dL (74-99); Non-African American GFR(MDRD) >60 (>60 ml/min/1.73 sqM); Potassium 4.2 mmol/L (3.5-5.1); Sodium 136 mmol/L (137-145)
[2017-02-22 10:47] VITALS: BMI 18.1
[2017-02-22] MEDS: SODIUM CHLORIDE 0.9% 1,000 ML IV SCH (10:50)
[2017-02-22] MEDS: HYDROcodone/APAP 5-325MG 1 EACH TAB PO PRN ×2 (11:02→19:00)
[2017-02-22] MEDS ORDERED: FAMOTIDINE 20 MG TAB PO SCH (12:45)
[2017-02-22 13:12] LABS: Erythrocyte Sedimentation Rate 107 mm/hr (0-20)
[2017-02-22] MEDS: MULTIVITAMINS, THERA 1 EACH TAB PO SCH (13:15)
[2017-02-22] MEDS: IPRATROPIUM-ALBUTEROL 3 ML NEB INHALATION SCH ×2 (15:55→20:15)
--- NOTE | 2017-02-22 16:28 | HP ---
DATE OF ADMISSION: 02/21/2017 PRESENTING COMPLAINT: Right foot infection. HISTORY OF PRESENTING COMPLAINT: This is a very pleasant 82-year-old patient who is present here with her son Jhonatan, and her [id number]. Patient's chronic stable medical conditions include COPD, osteoarthritis, malnutrition, rectal prolapse. She is a patient of Dr. Quezada from [facility] who has had a right foot wound for a long time. Patient was supposed to get a second opinion at [facility] today in case any laser treatment could be helpful. In the meantime, patient's foot has become more painful, draining, and there is a question about gangrene osteomyelitis. Admitted for the same, started on antibiotics. Patient's son Jhonatan told me that the patient for a long time had refused western medication and was just trying to use natural treatment; only recently has come around. REVIEW OF SYSTEMS: CONSTITUTIONAL: Weak, tired. HEENT: Decreased hearing. RESPIRATORY: Some baseline shortness of breath. CARDIOVASCULAR: None. GASTROINTESTINAL: Rectal prolapse. GENITOURINARY: None. MUSCULOSKELETAL: Aches and pains in different joints. DERMATOLOGICAL: Right foot wound. HEMATOLOGICAL: None. LYMPHATICS: None. PSYCHIATRY: None. NEUROLOGICAL: None. PAST HISTORY: 1. COPD. 2. Osteoarthritis. 3. Malnutrition. 4. Rectal prolapse. 5. Possible peripheral artery disease. PAST SURGICAL HISTORY: 1. Hysterectomy. 2. Right cataract removed with lens implant. 3. Colonoscopy. 4. Numerous foot debridements. SOCIAL HISTORY: Lives by herself but has family visiting her. She has private-hire aides. Patient smoked for close to 50 years; stopped over 14 years ago. No alcohol. FAMILY HISTORY: Mother had stomach cancer. HOME MEDICATIONS: 1. Durezol one drop to right eye b.i.d. 2. Ultram 50 mg p.o. q.i.d. p.r.n. 3. Vitamin B complex 1 capsule p.o. daily. 4. Tumeric 450 mg p.o. daily. 5. [place] leaf extract daily. 6. Silver Women's Tablet daily. 7. Verna root tablet daily. 8. Grapefruit seed extract 125 mg p.o. b.i.d. 9. Lasix 20 mg p.o. daily. 10. Voltaren 0.1% one drop to right eye b.i.d. 11. Vitamin C 1000 mg p.o. daily. ALLERGIES: NONE. PHYSICAL EXAMINATION: VITAL SIGNS ON PRESENTATION: Temperature 97.6, pulse 79, respiration 20, blood pressure 100/54, pulse ox 96% on room air. GENERAL APPEARANCE: Thin build. BMI 18.2. Sitting up. EYES: Pupils equal. Conjunctivae pale. HEENT: External appearance of nose and ears normal. Oral cavity normal. NECK: JVD not raised. Mass not palpable. RESPIRATORY: Effort normal. LUNGS: Diminished breath sounds. CARDIOVASCULAR: First and second sounds normal. No edema. ABDOMEN: Soft, nontender. Liver and spleen not palpable. LYMPHATIC: No lymph node palpable in neck or axillae. PSYCHIATRY: Alert and oriented x3. Mood and affect normal. MUSCULOSKELETAL: Diffuse wasting of muscles. Bony prominence and evidence of osteoarthritis, especially in the hands and knees. Right foot wound is present. See more details in Dr. Quezada's and Dr. Jiménez's notes. INVESTIGATIONS: White count 5.1, hemoglobin 10.5, repeat 10.8, platelets 562. Potassium 4.2. BUN 35, creatinine 0.60. Albumin 2.8. ASSESSMENT: 1. Acute and chronic right foot wound, possibly early gangrene, possibly osteomyelitis, from poor distal circulation. 2. Chronic obstructive pulmonary disease in an ex-smoker. 3. Primary osteoarthritis in multiple joints, bilateral. 4. Chronic moderate protein-calorie malnutrition. 5. Normocytic anemia, cause unknown. 6. Reactive thrombocytosis from infection. 7. Probable dehydration from elevated BUN. PLAN: I had a lengthy talk with the patient, son and family. Antibiotics have been started. Amputation may be the best resource in this case. Will stop patient's Lasix. Will supplement with Ensure. Lovenox for DVT prophylaxis. Patient is on IV ceftazidime and vancomycin. Pain control is in place. Will also add nebulized bronchodilators.
[2017-02-22] MEDS: ASPIRIN 81 MG CHEW PO SCH (21:47)
--- NOTE | 2017-02-22 22:10 | PN ---
DATE OF SERVICE: 02/22/2017 REASON FOR FOLLOWUP: Right lower extremity wound and a question of osteomyelitis. INTERVAL HISTORY: The patient is afebrile. She is currently breathing comfortably. The patient denies significant chest pain, cough. No abdominal pain or any worsening pain in the right leg area. It is currently dressed; no drainage. On examination, blood pressure is 106/45 with a pulse of 75, temperature 98.4. She is 94% on room air. General description is an elderly female lying in bed in no distress. RESPIRATORY SYSTEM: Unlabored breathing. Clear to auscultation anteriorly. HEART: S1, S2. Regular rate and rhythm. ABDOMEN: Soft. No tenderness. RIGHT LEG: Wound is currently dressed, with no obvious drainage on the dressing. LABS: Hemoglobin 9.8, white count 5.6 with a BUN of 35, creatinine 0.73. Wound culture now showing Gram-negative. Blood culture so far negative. DIAGNOSTIC IMPRESSION AND PLAN: Patient with non-healing wound to the right leg with underlying ischemic component with some gangrene of the second and third toes. Wound culture now showing a Gram-negative. Fortaz will be added to the vancomycin while waiting for the culture to finalize. Continue local wound care per Surgery. Continue supportive care.
[2017-02-23 04:10] LABS: Cholesterol 123 mg/dL (<200); HDL Cholesterol 44 mg/dL (40-60); Triglycerides 107 mg/dL (<150)
[2017-02-23] MEDS: SODIUM CHLORIDE 0.9% 1,000 ML IV SCH (08:02)
[2017-02-23] MEDS: NON-FORMULARY DRUG (Difluprednate [Durezol] 1 DROP) RIGHT EYE SCH ×3 (08:04→10:41)
[2017-02-23] MEDS: IPRATROPIUM-ALBUTEROL 3 ML NEB INHALATION SCH ×3 (08:24→20:27)
[2017-02-23] MEDS: HEPARIN SODIUM,PORCINE 5,000 UNIT/ML 1 ML VIAL SQ SCH ×2 (09:39→22:09)
[2017-02-23] MEDS: B COMPLEX-VIT C-VIT E-ZINC 1 EACH TAB PO SCH (09:39)
[2017-02-23] MEDS: MULTIVITAMINS, THERA 1 EACH TAB PO SCH (09:39)
[2017-02-23] MEDS: FAMOTIDINE 20 MG TAB PO SCH (09:39)
[2017-02-23] MEDS: DICLOFENAC 0.1% OPHTH SOLN 2.5 ML BTL RIGHT EYE SCH ×2 (09:40→22:09)
[2017-02-23] MEDS: ASCORBIC ACID 500 MG TAB PO SCH (09:40)
[2017-02-23] MEDS: ASPIRIN 81 MG CHEW PO SCH ×2 (09:40→22:10)
[2017-02-23] MEDS: HYDROcodone/APAP 5-325MG 1 EACH TAB PO PRN ×2 (09:46→19:06)
[2017-02-23] MEDS: VANCOMYCIN 750 MG in SODIUM CHLORIDE 0.9% 250 ML IVPB SCH (10:39)
--- NOTE | 2017-02-23 20:45 | PN ---
DATE OF SERVICE: 02/23/2017 REASON FOR FOLLOWUP: Right lower extremity wound and a question of osteomyelitis. INTERVAL HISTORY: The patient is afebrile. He is currently breathing comfortably. Pain to the right foot is currently controlled. Patient denies any chest pain or shortness of breath or cough. No abdominal pain or any diarrhea. On examination, blood pressure is 125/63 with a pulse of 82, temperature 98.9. She is 95% on room air. General description is an elderly female, lying in bed in no distress. RESPIRATORY SYSTEM: Unlabored breathing. Clear to auscultation anteriorly. HEART: S1, S2 regular rate and rhythm. ABDOMEN: Soft. No tenderness. The right leg wound is currently dressed with no obvious drainage on the dressing. LABS: Hemoglobin 9.2, white count 5.6 with BUN of 35, creatinine 0.73. Wound culture is currently pending. DIAGNOSTIC IMPRESSION AND PLAN: Patient with right lower extremity wound cellulitis and toes gangrene, waiting final surgical procedure per Surgery. Patient will continue vancomycin and Fortaz, waiting for the culture to finalize. Continue supportive care. LUBA
[2017-02-24 00:07] VITALS: RESP 16
[2017-02-24] MEDS: SODIUM CHLORIDE 0.9% 1,000 ML IV SCH (03:01)
--- NOTE | 2017-02-24 05:58 | PN ---
DATE OF SERVICE: 02/23/2017 PRESENTING COMPLAINT: Right foot infection. INTERVAL HISTORY: This very pleasant lady with medical issues presents with right foot some gangrenous changes infection as per Dr. Quezada the only option that will treat this is probably an amputation. Pain is decent controlled. Sitting up. Patient eating meals. No family is at the bedside. Review of systems done for constitutional, cardiovascular, GI, pulmonary, dermatologic; relevant findings as above. Current medications are reviewed that include IV ceftazidime and vancomycin. On examination, temperature 98.9, pulse 82, respirations 20, blood pressure 125/63, pulse ox 95% on room air. GENERAL APPEARANCE: Sitting up, comfortable. EYES: Pupils equal. Conjunctivae normal. NECK: JVD not raised. Mass not palpable. RESPIRATORY: Effort normal. LUNGS: Decreased breath sounds. CARDIOVASCULAR: First and second sounds normal. No edema. ABDOMEN: Soft, nontender. Liver and spleen not palpable. Right foot wound as before. INVESTIGATIONS: No blood work from today. Microbiology wound cultures growing presumptive staph aureus. Blood culture negative. ASSESSMENT: 1. Acute on chronic right foot wound, probably early gangrene, probably osteomyelitis with poor distal circulation, slow to respond. 2. Chronic obstructive pulmonary disease in an ex-smoker. 3. Primary osteoarthritis in multiple joints, bilateral. 4. Chronic moderate protein calorie malnutrition from decreased oral intake. 5. Normocytic anemia cause unknown. 6. Reactive thrombocytosis from infection. 7. Dehydration from elevated BUN. PLAN: I spoke to Dr. Quezada on the phone. He thinks amputation is the only resource. I spoke to patient's son Bert on the jefe and took the number for his brother Jhonatan who I had spoken to yesterday. I did call and leave a message for him. Telephone number [phone]. In the meantime, continue with antibiotics.
--- NOTE | 2017-02-24 07:36 | P.PN ---
Progress Note - Text 82-year-old white female, history of chronic wound right lower extremity involving the lower extremity and dorsal suspect the foot this patient has been seen by me in the past and have discussed in detail with his son and and also with Janel this wound is chronic for the last many years and this foot is not salvageable we have discussed about amputation if family agrees we will proceed
[2017-02-24] MEDS ORDERED: VANCOMYCIN TROUGH DUE 1 EACH MISC MISCELLANE ONE (08:00)
[2017-02-24] MEDS: ASCORBIC ACID 500 MG TAB PO SCH (08:05)
[2017-02-24] MEDS: B COMPLEX-VIT C-VIT E-ZINC 1 EACH TAB PO SCH (08:05)
[2017-02-24] MEDS: DICLOFENAC 0.1% OPHTH SOLN 2.5 ML BTL RIGHT EYE SCH ×2 (08:05→08:08)
[2017-02-24] MEDS: MULTIVITAMINS, THERA 1 EACH TAB PO SCH (08:05)
[2017-02-24] MEDS: HEPARIN SODIUM,PORCINE 5,000 UNIT/ML 1 ML VIAL SQ SCH (08:05)
[2017-02-24] MEDS: ASPIRIN 81 MG CHEW PO SCH (08:05)
[2017-02-24] MEDS: FAMOTIDINE 20 MG TAB PO SCH (08:06)
[2017-02-24] MEDS: IPRATROPIUM-ALBUTEROL 3 ML NEB INHALATION SCH ×2 (08:29→12:14)
[2017-02-24 09:30] LABS: Anion Gap 8 mmol/L; Blood Urea Nitrogen 30 mg/dL (7-17); Carbon Dioxide 26 mmol/L (22-30); Chloride 109 mmol/L (98-107); Glucose 83 mg/dL (74-99); Non-African American GFR(MDRD) >60 (>60 ml/min/1.73 sqM); Potassium 4.6 mmol/L (3.5-5.1); Sodium 143 mmol/L (137-145)
[2017-02-24] MEDS: VANCOMYCIN 750 MG in SODIUM CHLORIDE 0.9% 250 ML IVPB SCH (10:19)
[2017-02-24] MEDS ORDERED: ALPRAZolam 0.25 MG TAB PO PRN (11:32)
--- NOTE | 2017-02-24 15:27 | DS ---
DATE OF ADMISSION: 02/21/2017 DATE OF DISCHARGE: 02/24/2017 FINAL DIAGNOSES: 1. Acute on chronic right foot wound, probably early gangrene, possible osteomyelitis with poor microcirculation, slow to respond. 2. Chronic obstructive pulmonary disease in an ex-smoker. 3. Primary osteoarthritis in multiple joints, bilateral. 4. Chronic moderate protein calorie malnutrition, decreased oral intake. 5. Normocytic anemia. 6. Reactive thrombocytosis from infection. 7. Dehydration causing elevated BUN. HOSPITAL COURSE: This very pleasant lady who has got a right foot wound for quite some time, being followed by Dr. Quezada, wanted to use natural therapies, progressively getting worse. Presents with more superior wound of the right foot, started on antibiotics here. Spoke to patient's son, Jhonatan at length, telephone number [phone]. He wants to get another Vascular opinion and a plastics surgeon to see if they can salvage with the foot with control of infection, may be using a skin flap. Hence, the need for a higher level of care. Patient is being transferred to [facility]. I spoke at length to the patient this morning. She is agreeable to the same. Also spoke to Dr. Jiménez from Infectious Disease, [place] with him. Patient's current cultures are growing presumptive staph aureus. Patient's blood pressure is 133/63 and patient white count is normal, hemoglobin is 9.8 and BUN 30, creatinine 0.56. Current medications include: 1. DuoNeb t.i.d. 2. Xanax 0.25 p.o. q.8 p.r.n. 3. Vitamin C 1000 mg p.o. daily. 4. Aspirin 81 mg p.o. b.i.d. 5. Ceftazidime 2 gm q.12. IV piggyback. 6. Voltaren 0.1% 1 drop to right eye b.i.d. 7. Pepcid 20 mg p.o. daily. 8. Heparin 5000 units subQ q.12. 9. Floyd 5 one tablet q.4 p.r.n. 10. Morphine 4 mg IV q.4 p.r.n. 11. ( ) 1 tablet p.o. daily. 12. Zofran 4 mg IV push q.8 p.r.n. 13. Saline 50 mL q.20 hours. 14. Ultram 50 mg p.o. q.i.d. 15. Vancomycin 750 mg IV piggyback q.12. 16. Z-Herberth 1 capsule p.o. daily. DISPOSITION: [facility], Hospitalist Service. ACCEPTING PHYSICIAN: Dr. Vela. On examination, lungs decreased breath sounds. CARDIOVASCULAR: First and second sounds normal. Right foot wound. Patient's son carries a picture in his cell phone. DC planning more than 35 minutes.
[2017-02-24 16:10] VITALS: BP 156/73; PULSE 85; TEMP 99.1
[2017-02-24] MEDS: HYDROcodone/APAP 5-325MG 1 EACH TAB PO PRN (16:35)
--- NOTE | 2017-02-24 18:40 | PN ---
DATE OF SERVICE: 02/24/2017 Reason for follow up is right lower extremity wound and question of osteomyelitis and gangrene. INTERVAL HISTORY: The patient is afebrile. She is currently breathing comfortably. Denies significant chest pain. No cough. No abdominal pain. No worsening pain in the right leg area. On examination, blood pressure 133/63 with a pulse of 87, temperature 97.1. She is 95% on 2 liters nasal cannula. General description is an elderly female lying in bed in no distress. RESPIRATORY SYSTEM: Unlabored breathing. Clear to auscultation anteriorly. HEART: S1, S2. Regular rate and rhythm. ABDOMEN: Soft, no tenderness. Right leg is currently dressed up. No obvious drainage on the dressing. LABS: BUN of 30 with a creatinine 0.56. Wound cultures showing a presumptive Staphylococcus aureus. DIAGNOSTIC IMPRESSION AND PLAN: Patient with right lower extremity extensive wound with possible gangrene of the second and third toe. Vascular surgery recommending amputation, however, the family is refusing and the patient possibly being transferred to the [facility] to be evaluated by Vascular Surgery there. Patient will continue on Fortaz and vancomycin until the patient is evaluated by the Infectious Disease Service at that this facility.
[2017-02-24] MEDS ORDERED: VANCOMYCIN 750 MG in SODIUM CHLORIDE 0.9% 250 ML IVPB SCH (19:00)
[2017-02-24] MEDS ORDERED: FAMOTIDINE 20 MG TAB PO SCH (21:00)
== END 2017-02-24 17:58 | disposition short-term general hospital (02) | DRG 540 ==
LOC: EC 12:04 → 4MS4W 14:08
PROVIDERS: ADMIT Hospitalist; ATTEND Hospitalist
DX: M86.8X7 Other osteomyelitis, ankle and foot (principal); I70.261 Atherosclerosis of native arteries of extremities with gangrene, right leg; E44.0 Moderate protein-calorie malnutrition; L03.115 Cellulitis of right lower limb; L97.319 Non-pressure chronic ulcer of right ankle with unspecified severity; L97.419 Non-pressure chronic ulcer of right heel and midfoot with unspecified severity; J44.9 Chronic obstructive pulmonary disease, unspecified; B95.61 Methicillin susceptible Staphylococcus aureus infection as the cause of diseases classified elsewhere; E86.0 Dehydration; D64.9 Anemia, unspecified; D75.89 Other specified diseases of blood and blood-forming organs; M15.9 Polyosteoarthritis, unspecified; Z68.1 Body mass index [BMI] 19.9 or less, adult; Z79.899 Other long term (current) drug therapy; Z87.891 Personal history of nicotine dependence; Z82.49 Family history of ischemic heart disease and other diseases of the circulatory system
CPT/HCPCS: 36415; 80048; 80053; 80061; 80202; 83605; 85025; 85049; 85652; 85730; 86140; 87040; 87070; 87205

== ENCOUNTER 2017-06-28 07:01 | Day surgery (SDC) | payer MEDICARE, OTHER ==
[2017-06-21 10:42] VITALS: BMI 20.9
[2017-06-28] MEDS: CYCLOPENTOLATE 1% OPHTH SOLN 2 ML BTL OP ONE ×2 (07:17→07:23)
[2017-06-28] MEDS: PHENYLEPHRINE 10% OPHTH DROPS 5 ML BTL OP ONE ×3 (07:19→07:32)
[2017-06-28] MEDS: KETOROLAC 0.5% OPHTH DROPS 3 ML BTL OP ONE ×3 (07:21→07:35)
[2017-06-28 07:25] VITALS: RESP 16; TEMP 97.9
[2017-06-28] MEDS ORDERED: BALANCED SALT IRRIG SOLN COMB2 15 ML IRRIG.SOLN INTRAOCULA ONE (08:10)
[2017-06-28] MEDS ORDERED: EPINEPHrine (PF) 0.5 ML in BALANCED SALT IRRIG SOLN COMB2 500 ML IRRIGATION ONE (08:11)
[2017-06-28] MEDS ORDERED: HYALURONATE SODIUM INTRAOCULAR 1 EACH SYRINGE (10MG/ML) INTRAOCULA ONE (08:11)
--- NOTE | 2017-06-28 08:30 | P.OP ---
Date of Procedure: 06/28/17 Preoperative Diagnosis: Postoperative Diagnosis: Procedure(s) Performed: PREOPERATIVE DIAGNOSIS: Cataract, left eye. POSTOPERATIVE DIAGNOSIS: Cataract, left eye. OPERATION: Phacoemulsification cataract, left eye. DESCRIPTION OF PROCEDURE: The patient was taken to the preoperative holding area. Intravenous Propofol was given so as to bring about adequate sedation. The following mixture was given for local anesthesia: 5 mL of 2% lidocaine, 5 mL of 0.75% Marcaine, and 1 mL of Wydase. Approximately 4 mL was injected in the retrobulbar space of the surgical eye. Additional 1 mL was then directed to the temporal area of the surgical eye. This was performed to allow adequate neurological block of the facial muscles. The patient was revived and then taken into the operative room. The patient was prepped and draped in the usual sterile manner for the operative eye. A lid speculum was put into position. The conjunctiva was resected back from the limbus in the 12 o'clock position. Bleeding was controlled with electrocautery. A #69 blade was then used and a half-thickness scleral incision approximately 1-mm posterior to the limbus was made on bare sclera. This was shelved in the clear cornea using a crescent knife. Next a 15-degree blade was used to make a stab incision at the 3 o' clock position at the corneolimbal interface. Keratome blade was then used and the superior wound was extended into the anterior chamber. Viscoelastic was injected into the anterior chamber and to maintain its form. Next, a cystotome was used and a continuous anterior capsulotomy was made without difficulty. Hydrodissection using a blunt cannula and BSS was performed. Phaco probe was then employed and a groove extending from 12 to 6 o'clock in the lens was created. A Nabeel wand was used through the stab incision so as to perform a divide and conquer technique. Next an irrigation aspiration probe was utilized and any residual cortex was removed from the eye. Again, viscoelastic was injected into the anterior chamber. An Alvino posterior chamber lens implant was placed in the cartridge and injected into the anterior chamber without difficulty. The Poq Studioey hook was utilized to spin the lens into position and this was again performed without any difficulty. The irrigation and aspiration probe was again employed and any residual viscoelastic was removed from the eye. Then BSS was injected into the limbal stab incision and the anterior chamber re-inflated. The conjunctiva was reapproximated using electrocautery. One drop of 0.25% Timoptic was placed over the corneal along with TobraDex ophthalmic ointment. Two sterile patches and a Monzon eye shield were taped into position. The patient was transported to the recovery room in stable condition. Implants: Pathology: none sent Condition: stable Disposition: same day Indications for Procedure: Operative Findings: Description of Procedure:
[2017-06-28 08:51] VITALS: BP 121/65; PULSE 62
[2017-06-28] MEDS ORDERED: BUPIVACAINE (PF) 0.75% 5 ML, LIDOCAINE 4% (PF) 5 ML, HYALURONIDASE, HUMAN RECOMB 150 UNIT MISCELLANE ONE ×3 (23:00)
[2017-06-28] MEDS ORDERED: GENTAMICIN/PREDNISOL AC OPHTH OINT 3.5GM OPHTHALMIC ONE (23:00)
[2017-06-28] MEDS ORDERED: TIMOLOL 0.5% OPHTH SOLN (PF) 0.2 ML DROPERETTE OP ONE (23:00)
== END 2017-06-28 09:13 | disposition home or self-care (01) ==
LOC: OR 07:01
PROVIDERS: ATTEND Ophthalmology
DX: H26.9 Unspecified cataract (principal); J44.9 Chronic obstructive pulmonary disease, unspecified; M19.90 Unspecified osteoarthritis, unspecified site; K21.9 Gastro-esophageal reflux disease without esophagitis; I73.9 Peripheral vascular disease, unspecified; Z89.519 Acquired absence of unspecified leg below knee; F17.200 Nicotine dependence, unspecified, uncomplicated; Z79.899 Other long term (current) drug therapy; Z79.82 Long term (current) use of aspirin
CPT/HCPCS: 66984; V2632; J2001; J3470; J0171

== ENCOUNTER 2018-06-08 14:17 | Inpatient (IN) | payer MEDICARE, OTHER ==
--- NOTE | 2018-06-08 14:55 | ED ---
General Adult HPI - General Chief complaint: Skin/Abscess/Foreign Body Stated complaint: Leg Wound Time Seen by Provider: 06/08/18 14:37 Source: patient, RN notes reviewed, Caregiver Mode of arrival: wheelchair Limitations: physical limitation - History of Present Illness Initial comments: 83-year-old female presents to the emergency department for a chief complaint of left lower extremity cellulitis. Patient has had platelet's of the lower extremity for a few months and is currently seeing wound care. Patient was admitted for IV antibiotics in the past for this cellulitis. Patient states she has been going to wound care. She states today cellulitis is much more erythematous and hard to touch. She states it is weeping more than normal and she believes the infection is worsening again. Patient states she was at wound care today and they recommended she go to the emergency department. Denies fevers or chills. She states that she has been on Cipro for this at home. Patient has no other complaints at this time including shortness of breath, chest pain, abdominal pain, nausea or vomiting, headache, or visual changes. - Related Data Home Medications Medication Instructions Recorded Confirmed Multivit-Min/Iron/Folic/Lutein 1 tab PO DAILY 01/20/17 06/08/18 [Centrum Silver Women Tablet] Aspirin 81 mg PO DAILY 06/21/17 06/08/18 Furosemide [Lasix] 20 mg PO DAILY 01/31/18 06/08/18 Grapefruit Supplement 1 tab PO DAILY 01/31/18 06/08/18 Loratadine [Claritin] 10 mg PO DAILY PRN 01/31/18 06/08/18 Ciprofloxacin HCl [Cipro] 500 mg PO Q12HR 06/08/18 06/08/18 Turmeric Root Extract [Turmeric] 500 mg PO DAILY 06/08/18 06/08/18 Allergies Allergy/AdvReac Type Severity Reaction Status Date / Time No Known Allergies Allergy Verified 06/08/18 14:47 Review of Systems ROS Statement: Those systems with pertinent positive or pertinent negative responses have been documented in the HPI. ROS Other: All systems not noted in ROS Statement are negative. Past Medical History Past Medical History: Pneumonia Additional Past Medical History / Comment(s): prolapsed rectum-since january 2003 , bilateral leg ulcers (since 2002) and current R ankle/foot ulcers-seen by Dr. Damien in wound center, left lower leg edema,, protein calorie malnourished, anemia, wheelchair, hx lupus History of Any Multi-Drug Resistant Organisms: MRSA Date of last positivie culture/infection: 01/31/18 MDRO Source:: left ankle Past Surgical History: Hysterectomy, Tonsillectomy Additional Past Surgical History / Comment(s): kaci cataract removal with lens implant, picc line insertion since removed, colonoscopy, numerous lower leg/ foot debridements. amputation below rt knee Past Anesthesia/Blood Transfusion Reactions: No Reported Reaction Past Psychological History: No Psychological Hx Reported Smoking Status: Former smoker Past Alcohol Use History: None Reported Past Drug Use History: None Reported - Past Family History Son(s) History Unknown: Yes Mother History Unknown: Yes Family Medical History: Cancer Additional Family Medical History / Comment(s): Mother had stomach cancer. Father Family Medical History: Coronary Artery Disease (CAD) General Exam Limitations: physical limitation General appearance: alert, in no apparent distress Head exam: Present: atraumatic, normocephalic, normal inspection Eye exam: Present: normal appearance. Absent: scleral icterus, conjunctival injection ENT exam: Present: normal exam, mucous membranes moist Neck exam: Present: normal inspection, full ROM. Absent: tenderness, meningismus, lymphadenopathy Respiratory exam: Present: normal lung sounds bilaterally. Absent: respiratory distress, wheezes, rales, rhonchi, stridor Cardiovascular Exam: Present: regular rate, normal rhythm, normal heart sounds. Absent: systolic murmur, diastolic murmur, rubs, gallop, clicks Extremities exam: Present: full ROM (Full range of motion of the digits of the left lower extremity), tenderness (Tenderness over the area of erythema), normal capillary refill (Capillary refill less than 2 seconds in the left lower extremity), other (Patient has erythema of the entire left foot extending about midway up the calf. Indurated and warm to touch. Patient has 2 chronic wounds on the lateral aspect of the left foot and ankle. No streaking redness up the extremity. There is mild serous drainage.) Course Vital Signs 06/08/18 06/08/18 14:20 15:31 Temperature 98.1 F 98.7 F Pulse Rate 83 57 L Respiratory 18 18 Rate Blood Pressure 136/72 110/55 O2 Sat by Pulse 95 92 L Oximetry Medical Decision Making - Medical Decision Making 83-year-old female presents to the emergency department for chief complaint of sialitis of the left lower extremity. Patient states this has been ongoing for months however today it is worse and wound care recommended she come to the emergency department. Patient has received IV antibiotics in the past for this but is currently on Cipro at home. On exam patient has extensive erythema from the foot to the middle of the left calf. Apparently this erythema has become worse over the past few days. Patient complains of a serous drainage from the leg. Patient has been taking oral antibiotics at home but cellulitis seems to have worsened over the past few days. Dr. Gonzalez also visualized the leg. Patient will be admitted for IV antibiotics. She will be started on Vanco. - Lab Data Result diagrams: 06/08/18 15:27 06/08/18 15:27 Lab Results 06/08/18 06/08/18 Range/Units 15:27 15:27 WBC 8.0 (3.8-10.6) k/uL RBC 4.34 (3.80-5.40) m/uL Hgb 12.4 (11.4-16.0) gm/dL Hct 39.6 (34.0-46.0) % MCV 91.4 (80.0-100.0) fL MCH 28.5 (25.0-35.0) pg MCHC 31.2 (31.0-37.0) g/dL RDW 14.7 (11.5-15.5) % Plt Count 427 (150-450) k/uL Neutrophils % 68 % Lymphocytes % 21 % Monocytes % 5 % Eosinophils % 3 % Basophils % 1 % Neutrophils # 5.4 (1.3-7.7) k/uL Lymphocytes # 1.7 (1.0-4.8) k/uL Monocytes # 0.4 (0-1.0) k/uL Eosinophils # 0.3 (0-0.7) k/uL Basophils # 0.0 (0-0.2) k/uL Sodium 140 (137-145) mmol/L Potassium 4.5 (3.5-5.1) mmol/L Chloride 105 (98-107) mmol/L Carbon Dioxide 28 (22-30) mmol/L Anion Gap 7 mmol/L BUN 27 H (7-17) mg/dL Creatinine 0.78 (0.52-1.04) mg/dL Est GFR (CKD-EPI)AfAm 82 (>60 ml/min/1.73 sqM) Est GFR (CKD-EPI)NonAf 71 (>60 ml/min/1.73 sqM) Glucose 86 (74-99) mg/dL Calcium 9.2 (8.4-10.2) mg/dL Total Bilirubin 0.3 (0.2-1.3) mg/dL AST 30 (14-36) U/L ALT 24 (9-52) U/L Alkaline Phosphatase 65 (38-126) U/L Total Protein 7.2 (6.3-8.2) g/dL Albumin 3.8 (3.5-5.0) g/dL Disposition Clinical Impression: Cellulitis Disposition: ADMITTED IP TO THIS HOSP Condition: Poor Is patient prescribed a controlled substance at d/c from ED?: No Referrals: Jose Reese MD [Primary Care Provider] - 1-2 days Time of Disposition: 17:58
[2018-06-08 15:54] LABS: Basophils % (A) 1 %; Eosinophils # (A) 0.3 k/uL (0-0.7); Eosinophils % (A) 3 %; HCT 39.6 % (34.0-46.0); HGB 12.4 gm/dL (11.4-16.0); Lymphocytes # (A) 1.7 k/uL (1.0-4.8); Lymphocytes % (A) 21 %; MCH 28.5 pg (25.0-35.0); MCHC 31.2 g/dL (31.0-37.0); MCV 91.4 fL (80.0-100.0); Mean Platelet Volume 7.2; Monocytes # (A) 0.4 k/uL (0-1.0); Monocytes % (A) 5 %; Neutrophils # (A) 5.4 k/uL (1.3-7.7); Neutrophils % (A) 68 %; Platelet Count 427 k/uL (150-450); RBC 4.34 m/uL (3.80-5.40); RDW 14.7 % (11.5-15.5)
[2018-06-08 16:01] LABS: Albumin 3.8 g/dL (3.5-5.0); Calcium 9.2 mg/dL (8.4-10.2); Potassium 4.5 mmol/L (3.5-5.1); Total Bilirubin 0.3 mg/dL (0.2-1.3); Total Protein 7.2 g/dL (6.3-8.2)
--- NOTE | 2018-06-08 16:49 | XR ---
EXAMINATION TYPE: XR foot complete LT DATE OF EXAM: 06/08/2018 COMPARISON: NONE HISTORY: Redness. Pain. TECHNIQUE: 3 views FINDINGS: There is osteopenia. There is multiple hammertoe deformity. I see no fracture nor dislocati on. Metatarsals appear intact. IMPRESSION: No acute abnormality of the left foot. No evidence of osteomyelitis.
[2018-06-08] MEDS ORDERED: NALOXONE 0.4 MG/ML 1 ML VIAL IV PRN (17:39)
[2018-06-08] MEDS ORDERED: MORPHINE SULFATE 4 MG/ML SYRINGE IV PRN (17:39)
[2018-06-08] MEDS ORDERED: ACETAMINOPHEN TAB 325 MG TAB PO PRN (17:39)
[2018-06-08] MEDS ORDERED: VANCOMYCIN IV PER PHARMACY 1 EACH MISC MISCELLANE PRN (17:55)
[2018-06-08] MEDS ORDERED: VANCOMYCIN 1,000 MG in SODIUM CHLORIDE 0.9% 250 ML IVPB ONE (18:15)
[2018-06-08] MEDS: SODIUM CHLORIDE 0.9% 1,000 ML IV SCH (19:30)
[2018-06-09] MEDS: SODIUM CHLORIDE 0.9% 1,000 ML IV SCH ×2 (06:14→11:35)
[2018-06-09] MEDS ORDERED: KETOROLAC 30 MG/ML 1 ML VIAL IVP PRN (10:06)
[2018-06-09] MEDS ORDERED: COLLAGENASE 250 UNIT/GM OINTMENT 30 GM TUBE TOPICAL SCH ×2 (10:15→10:45)
[2018-06-09] MEDS ORDERED: LORATADINE 10 MG TAB PO PRN (10:31)
[2018-06-09] MEDS ORDERED: traMADol 50 MG TAB PO PRN (10:35)
[2018-06-09] MEDS ORDERED: CIPROFLOXACIN HCL 500 MG TAB PO SCH (10:45)
[2018-06-09] MEDS ORDERED: NON-FORMULARY DRUG (Turmeric Root Extract [Turmeric] 500 MG) PO SCH (10:45)
[2018-06-09] MEDS ORDERED: [UNRECOGNIZED DRUG - OTHER] PO SCH (10:45)
--- NOTE | 2018-06-09 10:48 | P.HPIM ---
Review of Systems 83 yo F with pmh of osteoarthritis, pneumonia, rectal prolapse, bilateral lower extremity ulcers since 2002, and she follow up with wound clinic for her right ankle/foot ulcer, seen by Dr. Quezada, she has history of leg edema and coronary protein malnutrition, anemia, history of lupus, history of MRSA in her ankle wound, she is wheelchair bound, hold presents because of left leg cellulitis and weeping wound which is getting worse over the last 2 days. . In the emergency room's her Vitas looks stable, however today she has low grade fever 99.7. Left foot x-ray shows no evidence of osteomyelitis or acute events (as per radiology report), patient already started on IV vancomycin, as she has history of MRSA in her left wound. She is currently also on Cipro Past Medical History Past Medical History: Osteoarthritis (OA), Pneumonia Additional Past Medical History / Comment(s): prolapsed rectum-since january 2003 , bilateral leg ulcers (since 2002) and current R ankle/foot ulcers-seen by Dr. Quezada in wound center, left lower leg edema,, protein calorie malnourished, anemia, wheelchair, hx lupus History of Any Multi-Drug Resistant Organisms: MRSA Date of last positivie culture/infection: 01/31/18 MDRO Source:: left ankle Past Surgical History: Hysterectomy, Tonsillectomy Additional Past Surgical History / Comment(s): kaci cataract removal with lens implant, picc line insertion since removed, colonoscopy/polyps removed-benign, numerous lower leg/foot debridements. amputation below rt knee, pt stated in past took meds for her thyroid but no longer on anything Past Anesthesia/Blood Transfusion Reactions: No Reported Reaction Smoking Status: Former smoker - Past Family History Son(s) History Unknown: Yes Mother History Unknown: Yes Family Medical History: Cancer Additional Family Medical History / Comment(s): Mother had stomach cancer. Father Family Medical History: Congestive Heart Failure (CHF) Medications and Allergies Home Medications Medication Instructions Recorded Confirmed Type RX: Multivit-Min/Iron/Folic/Lutein 1 tab PO DAILY 01/20/17 06/08/18 History [Centrum Silver Women Tablet] RX: Aspirin 81 mg PO DAILY 06/21/17 06/08/18 History Grapefruit Supplement 1 tab PO DAILY 01/31/18 06/08/18 History RX: Furosemide [Lasix] 20 mg PO DAILY 01/31/18 06/08/18 History RX: Loratadine [Claritin] 10 mg PO DAILY PRN 01/31/18 06/08/18 History Ciprofloxacin HCl [Cipro] 500 mg PO Q12HR 06/08/18 06/08/18 History Turmeric Root Extract [Turmeric] 500 mg PO DAILY 06/08/18 06/08/18 History Collagenase [Santyl] 1 applic TOPICAL DAILY 06/09/18 06/09/18 History Allergies Allergy/AdvReac Type Severity Reaction Status Date / Time No Known Allergies Allergy Verified 06/08/18 14:47 Physical Exam Vitals: Vital Signs Temp Pulse Pulse Resp BP BP Pulse Ox 06/09/18 05:00 99.7 F H 69 16 113/54 95 06/09/18 00:00 62 20 06/08/18 23:00 96.9 F L 62 20 115/63 97 06/08/18 19:29 97 F L 72 16 133/60 96 06/08/18 15:31 98.7 F 57 L 18 110/55 92 L 06/08/18 14:20 98.1 F 83 18 136/72 95 Intake and Output 06/08/18 06/09/18 06/09/18 22:59 06:59 14:59 Intake Total 1080 590 Output Total 1 Balance 1079 590 Intake: Intake, IV Titration 250 Amount Vancomycin 1,000 mg In 250 Sodium Chloride 0.9% 250 ml @ 125 mls/hr IVPB Q24H [facility] Rx#:[id number] Oral 830 590 Output: Urine/Stool Mix 1 Other: Voiding Method Incontinent Incontinent # Voids 1 1 GENERAL: The patient is alert and oriented x3, not in any acute distress. Well developed, well nourished. HEENT: Pupils are round and equally reacting to light. EOMI. No scleral icterus. No conjunctival pallor. Normocephalic, atraumatic. No pharyngeal erythema. No thyromegaly. CARDIOVASCULAR: S1 and S2 present. No murmurs, rubs, or gallops. PULMONARY: Chest is clear to auscultation, no wheezing or crackles. ABDOMEN: Soft, nontender, nondistended, normoactive bowel sounds. No palpable organomegaly. MUSCULOSKELETAL: No joint swelling or deformity. EXTREMITIES: No cyanosis, clubbing, or pedal edema. -Right AKA. left ankle and foot are red, swelling, and warm and tender to touch , with the wound on the lateral side of the left ankle, with purulent discharge at the base. Patient can move her ankle up and down doesn't look ankle swelling. And she feels the sensation of the toes. Positive dorsalis pedis NEUROLOGICAL: Gross neurological examination did not reveal any focal deficits. SKIN: No rashes. Results CBC & Chem 7: 06/08/18 15:27 06/08/18 15:27 Labs: Abnormal Lab Results - Last 24 Hours (Table) 06/08/18 Range/Units 15:27 BUN 27 H (7-17) mg/dL Thrombosis Risk Factor Assmnt - Choose All That Apply Each Factor Represents 1 point: Swollen legs (current) Each Risk Factor Represents 3 Points: Age 75 years or older Other congenital or acquired thrombophilia - If yes, enter type in comment: No Thrombosis Risk Factor Assessment Total Risk Factor Score: 4 Thrombosis Risk Factor Assessment Level: Moderate Risk Assessment and Plan Plan: Left leg wound, and surrounding cellulitis. Patient has history of MRSA in the wound. She is follow-up with Dr. Ness and his been seen by Dr. Jiménez from [place] before. We'll consult both. [place] culture. Patient already started on IV vancomycin, she is on IV fluids. She was on Cipro at home which was will be discontinued Venous Doppler: Pending -History of chronic left venous ulcer, as above, consult with Dr. Ness. Follow-up as an outpatient -History of osteoarthritis, DVT prophylaxis subcutaneous heparin GI prophylaxis Pepcid Prognosis is guarded
[2018-06-09] MEDS: FAMOTIDINE 20 MG TAB PO SCH ×2 (11:34→20:17)
[2018-06-09] MEDS: FUROSEMIDE 20 MG TAB PO SCH (11:34)
[2018-06-09] MEDS: MULTIVITAMINS, THERA 1 EACH TAB PO SCH (11:34)
[2018-06-09] MEDS: ASPIRIN 81 MG PO SCH (11:34)
--- NOTE | 2018-06-09 12:54 | US ---
EXAMINATION TYPE: US venous doppler duplex LE DATE OF EXAM: 06/09/2018 12:24 PM COMPARISON: NONE CLINICAL HISTORY: Rule out DVT. Left lower leg cellulitis; right below knee amputation SIDE PERFORMED: Bilateral TECHNIQUE: The lower extremity deep venous system is examined utilizing real time linear array sonog josy with graded compression, doppler sonography and color-flow sonography. VESSELS IMAGED: Common Femoral Vein Deep Femoral Vein Greater Saphenous Vein * Femoral Vein Popliteal Vein Small Saphenous Vein * Proximal Calf Veins (* superficial vessels) Right Leg: Diminutive Right Femoral Vein with non occluding chronic wall changes as wall echoes are noted through the course of femoral vein with compression to wall echoes. Left Leg: Non occluding wall echoes noted upper Femoral Vein at valves, otherwise, remaining veins s how normal color fill and compressibility. IMPRESSION: 1. Bilateral lower extremity deep venous ultrasound negative for occluding deep venous thrombosis. 2. There is some thickening through the right upper femoral vein which could be some nonoccluding thr ombus. There is partial compressibility of the venous structures with compression of the flow lumen. Chronic thrombus should be considered, more so on the right than the left
--- NOTE | 2018-06-09 14:11 | CONS ---
CONSULTATION Patient is an 83-year-old female, well known to me from the Wound Clinic. Patient came with history of cellulitis. She has a chronic ulcer left foot at the lateral malleolus and also she has a wound on the ankle area for some time. We did the angiogram on her artery circulation decent. We have been treating this ulcer with Santyl cream and also she developed some marked cellulitis and redness of the feet and lower extremity. The patient has a growing MRSA. PAST MEDICAL HISTORY: History of a right below-knee amputation in the past. The patient also has history of osteoarthritis and pneumonia. No history of diabetes. PHYSICAL EXAMINATION: Patient was seen in her room. She is lying comfortably. NECK: Supple. CHEST: Clear to auscultation. ABDOMEN: Soft. Femoral pulses are 2+ bilateral with the tibials by the Doppler. Patient has marked redness of the lower extremity and also dorsum aspect of the foot. Culture has been taken, but previous culture showed patient has MRSA. PLAN: We will treat with local wound care and the patient will be on vancomycin. Follow with you. MMODL / IJN: [id number] /
[2018-06-09] MEDS: COLLAGENASE 250 UNIT/GM OINTMENT 30 GM TUBE TOPICAL SCH (17:00)
[2018-06-09] MEDS: VANCOMYCIN 1,000 MG in SODIUM CHLORIDE 0.9% 250 ML IVPB SCH (19:52)
[2018-06-09] MEDS: HEPARIN SODIUM,PORCINE 5,000 UNIT/ML 1 ML VIAL SQ SCH (20:18)
--- NOTE | 2018-06-10 02:17 | CONS ---
CONSULTATION DATE OF SERVICE: 06/09/2018. REASON FOR CONSULTATION: Left knee wound and cellulitis. HISTORY OF PRESENT ILLNESS: The patient is a 53 -year-old female well known to my service from previous admission to the hospital for lower extremity wound cellulitis. The patient did have chronic nonhealing wound to the left lower extremity, mostly at the lateral ankle area for which the patient has been under the care of [facility] with Dr. Quezada. She did have previous admission to the hospital with wound infection secondary to MRSA and Pseudomonas. The patient said that she was doing well. However started having more swelling redness to the left knee area that has been getting worse over the last few days. Pain to the left leg is mostly throbbing at times, dull aching, 4-5 out of 10 and no radiation. The patient did have a nonhealing wound with some drainage from it with surrounding swelling and redness. The patient did have some chills but denies any high-grade fevers. With these symptoms, the patient presented to the hospital where the patient has been evaluated by the ER physician. The patient did have a low-grade fever of 99.7. White count not significantly elevated. The patient did have some cultures obtained from the leg wound area. Blood cultures obtained. She was started on vancomycin. Infectious Disease was consulted for further recommendations of antibiotic therapy. REVIEW OF SYSTEMS: Constitutional: Positive for weakness and chills. Eyes no complaint. ENT no complaint. Respiratory no complaint. Cardiovascular no complaint. Genitourinary no complaint. Gastrointestinal: No complaint. Musculoskeletal as per HPI. Integumentary as per HPI. Psychological no complaint. Endocrine no complaint. Neurologic no complaint. 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 Peripheral arterial disease, pneumonia. Left leg wound infection with MRSA and pseudomonas aeruginosa. PAST SURGICAL HISTORY: Right BKA, debridement of the right leg wound, hysterectomy. SOCIAL HISTORY: Denies smoking, drinking or drug use. FAMILY HISTORY: No pertinent findings noticed. ALLERGIES: No known drug allergies. MEDICATION: Currently include the patient is on Tylenol, aspirin, vancomycin, pharmacy to dose, Pepcid, Lasix, heparin, Claritin, Theragran, Narcan and Ultram. EXAMINATION: Her blood pressure is 139/62 with a pulse of 75, temperature 98.9, she is 94% on room air. General description is an elderly female, lying in bed in no distress. No tachypnea or accessory muscles of respiration use. HEENT: Shows no pallor or scleral icterus. Oral mucous membranes dry. No pharyngeal erythema or thrush. Neck trachea central. No thyromegaly. Lungs unlabored breathing. Clear to auscultation anteriorly. No wheeze or crackles. Heart: S1, S2. Regular rate and rhythm. ABDOMEN: Soft, no tenderness. No guarding. No rigidity. Extremities: Left leg with a wound on the left side x2 with slough tissue at the base surrounding erythema. No foul smelling drainage. Neurological: The patient is awake, alert, oriented times three. Mood and affect normal. LABS: Hemoglobin is 12.4, white count 8.0, BUN of 27, creatinine 0.78. Cultures obtained currently pending. DIAGNOSTIC IMPRESSION AND PLAN: Patient with nonhealing wound to the left leg with secondary cellulitis in a patient with a previous history of MRSA as well as Pseudomonas infection. Could be the similar pathogen. PLAN: 1. Local wound care with Santyl followed by moist dressing. 2. Ted the area of redness. 3. The patient will be treated with vancomycin, pharmacy to dose, target of 15 watching the kidney function closely along with however, we will add Fortaz 2 g every 8 hours. 4. Depending we will follow up on clinical condition and culture to further adjust medication if needed. Thank you for this consultation. We will follow this patient along with you. MMODL / IJN: [id number] /
[2018-06-10] MEDS: SODIUM CHLORIDE 0.9% 1,000 ML IV SCH ×2 (05:39→16:35)
[2018-06-10 07:30] LABS: Anion Gap 3 mmol/L; Blood Urea Nitrogen 16 mg/dL (7-17); Calcium 8.5 mg/dL (8.4-10.2); Carbon Dioxide 27 mmol/L (22-30); Chloride 112 mmol/L (98-107); Glucose 79 mg/dL (74-99); Potassium 4.1 mmol/L (3.5-5.1); Sodium 142 mmol/L (137-145)
[2018-06-10] MEDS: ASPIRIN 81 MG PO SCH (07:53)
[2018-06-10] MEDS: FAMOTIDINE 20 MG TAB PO SCH ×2 (07:53→19:18)
[2018-06-10] MEDS: FUROSEMIDE 20 MG TAB PO SCH (07:53)
[2018-06-10] MEDS: MULTIVITAMINS, THERA 1 EACH TAB PO SCH (07:53)
[2018-06-10] MEDS: HEPARIN SODIUM,PORCINE 5,000 UNIT/ML 1 ML VIAL SQ SCH ×2 (07:54→17:42)
[2018-06-10] MEDS: COLLAGENASE 250 UNIT/GM OINTMENT 30 GM TUBE TOPICAL SCH (07:57)
--- NOTE | 2018-06-10 12:28 | P.PN ---
Subjective 83 yo F with pmh of osteoarthritis, pneumonia, rectal prolapse, bilateral lower extremity ulcers since 2002, and she follow up with wound clinic for her right ankle/foot ulcer, seen by Dr. Quezada, she has history of leg edema and coronary protein malnutrition, anemia, history of lupus, history of MRSA in her ankle wound, she is wheelchair bound, hold presents because of left leg cellulitis and weeping wound which is getting worse over the last 2 days. In the emergency room's her Vitas looks stable, however today she has low grade fever 99.7. Left foot x-ray shows no evidence of osteomyelitis or acute events (as per radiology report), patient already started on IV vancomycin, as she has history of MRSA in her left wound. She is currently also on Cipro Objective - Vital Signs Vital signs: Vital Signs Temp 97.3 F L 06/10/18 05:30 Pulse 65 06/10/18 05:30 Resp 16 06/10/18 05:30 BP 139/75 06/10/18 05:30 Pulse Ox 95 06/10/18 05:30 Intake & Output 06/09/18 06/10/18 06/10/18 18:59 06:59 18:59 Intake Total 800 Balance 800 Intake: Intake, IV Titration 800 Amount cefTAZidime 2 gm In 800 Sodium Chloride 0.9% 100 ml @ 100 mls/hr IVPB Q8HR [facility] Rx#:[id number] Other: Voiding Method Incontinent Incontinent Incontinent # Voids 2 2 # Bowel Movements 2 - Exam GENERAL: The patient is alert and oriented x3, not in any acute distress. Well developed, well nourished. HEENT: Pupils are round and equally reacting to light. EOMI. No scleral icterus. No conjunctival pallor. Normocephalic, atraumatic. No pharyngeal erythema. No thyromegaly. CARDIOVASCULAR: S1 and S2 present. No murmurs, rubs, or gallops. PULMONARY: Chest is clear to auscultation, no wheezing or crackles. ABDOMEN: Soft, nontender, nondistended, normoactive bowel sounds. No palpable organomegaly. MUSCULOSKELETAL: No joint swelling or deformity. EXTREMITIES: No cyanosis, clubbing, or pedal edema. -Right AKA. left ankle and foot are red, swelling, and warm and tender to touch , with the wound on the lateral side of the left ankle, with purulent discharge at the base. Patient can move her ankle up and down doesn't look ankle swelling. And she feels the sensation of the toes. Positive dorsalis pedis NEUROLOGICAL: Gross neurological examination did not reveal any focal deficits. SKIN: No rashes. - Labs CBC & Chem 7: 06/08/18 15:27 06/10/18 06:54 Labs: Abnormal Lab Results - Last 24 Hours (Table) 06/10/18 Range/Units 06:54 Chloride 112 H (98-107) mmol/L Microbiology - Last 24 Hours (Table) 06/09/18 11:24 Gram Stain - Preliminary Leg - Left Wound Culture - Preliminary 06/08/18 15:27 Blood Culture - Preliminary Blood No Growth after 24 hours 06/09/18 11:24 Anaerobic Culture - Preliminary Leg - Left Assessment and Plan Plan: Left leg wound, and surrounding cellulitis. Patient has history of MRSA in the wound. She is follow-up with Dr. Ness and his been seen by Dr. Jiménez from [place] before and their input is appreciated. We'll consult both. wound culture: pending . Patient already started on IV vancomycin and ceftazidime, she is on IV fluids. She was on Cipro at home which was will be discontinued -Venous Doppler: possible b/l chronic wall changes and thrombosis, non- occluding . call hematology consult: pending -History of chronic left venous ulcer, as above, consult with Dr. Ness. Follow-up as an outpatient -History of osteoarthritis DVT prophylaxis subcutaneous heparin GI prophylaxis Pepcid Prognosis is guarded
[2018-06-10] MEDS: VANCOMYCIN 1,000 MG in SODIUM CHLORIDE 0.9% 250 ML IVPB SCH (19:17)
--- NOTE | 2018-06-10 22:25 | P.CONS ---
History of Present Illness - Reason for Consult Consult date: 06/10/18 Anticoagulation Recommendations Requesting physician: Troibio E Sheet - Chief Complaint Cellulitis - History of Present Illness Ms. Call is an 83 year old female with a known history of osteoarthiritis, rectal prolapse, lupus, coronary artery disease, peripheral vascular disease, and chronic bilateral lower extremity ulcers. She has a known history of MRSA in her lower extremity wound, she is wheelchair bound. She follows with the wound clinic for her chronic leg ulcers. She presented to [facility] for progressive lower extremity cellulitis. She admits to fevers, chronic edema in bilateral extremities, and stated the wounds have worsened over the past week and are now weeping. Xray of her foot did not reveal any evidence of osteomyelitis. She is currently being treated with IV antibiotics. A lower extremity Doppler was performed on 06/09/18, this did not show any clear evidence of acute deep vein thrombosis, although did mention thickening through right femoral vein which could be evidence of non-occluding throbus. Per doppler report chronic thrombus can not be ruled out. Therefore hematology has been consulted regarding need for anticoagulation therapy. Review of Systems A 14 point review of systems assessed and completed and all negative except HPI Past Medical History Past Medical History: Osteoarthritis (OA), Pneumonia Additional Past Medical History / Comment(s): prolapsed rectum-since january 2003 , bilateral leg ulcers (since 2002) and current R ankle/foot ulcers-seen by Dr. Quezada in wound center, left lower leg edema,, protein calorie malnourished, anemia, wheelchair, hx lupus History of Any Multi-Drug Resistant Organisms: MRSA Year Discovered:: 01/31/18 MDRO Source:: left ankle Past Surgical History: Hysterectomy, Tonsillectomy Additional Past Surgical History / Comment(s): kaci cataract removal with lens implant, picc line insertion since removed, colonoscopy/polyps removed-benign, numerous lower leg/foot debridements. amputation below rt knee, pt stated in past took meds for her thyroid but no longer on anything Past Anesthesia/Blood Transfusion Reactions: No Reported Reaction Smoking Status: Former smoker - Past Family History Son(s) History Unknown: Yes Mother History Unknown: Yes Family Medical History: Cancer Additional Family Medical History / Comment(s): Mother had stomach cancer. Father Family Medical History: Congestive Heart Failure (CHF) Medications and Allergies Home Medications Medication Instructions Recorded Confirmed Type Multivit-Min/Iron/Folic/Lutein 1 tab PO DAILY 01/20/17 06/08/18 History [Centrum Silver Women Tablet] Aspirin 81 mg PO DAILY 06/21/17 06/08/18 History Furosemide [Lasix] 20 mg PO DAILY 01/31/18 06/08/18 History Grapefruit Supplement 1 tab PO DAILY 01/31/18 06/08/18 History Loratadine [Claritin] 10 mg PO DAILY PRN 01/31/18 06/08/18 History Ciprofloxacin HCl [Cipro] 500 mg PO Q12HR 06/08/18 06/08/18 History Turmeric Root Extract [Turmeric] 500 mg PO DAILY 06/08/18 06/08/18 History Collagenase [Santyl] 1 applic TOPICAL DAILY 06/09/18 06/09/18 History Allergies Allergy/AdvReac Type Severity Reaction Status Date / Time No Known Allergies Allergy Verified 06/08/18 14:47 Physical Exam Vitals: Vital Signs Temp Pulse Resp BP Pulse Ox 06/10/18 15:00 98.8 F 81 18 108/56 93 L 06/10/18 05:30 97.3 F L 65 16 139/75 95 06/10/18 00:00 75 17 06/09/18 23:00 98.9 F 75 17 139/62 94 L Intake and Output 06/10/18 06/10/18 06/10/18 06:59 14:59 22:59 Intake Total 1150 Balance 1150 Intake: Intake, IV Titration 700 Amount Sodium Chloride 0.9% 1, 600 000 ml @ 75 mls/hr IV . [id number] [facility] Rx#:[id number] cefTAZidime 2 gm In 100 Sodium Chloride 0.9% 100 ml @ 100 mls/hr IVPB Q8HR [facility] Rx#:[id number] Oral 450 Other: Voiding Method Incontinent Incontinent Bedpan # Voids 2 2 # Bowel Movements 1 - Constitutional General appearance: cooperative, no acute distress - EENT Eyes: EOMI, dentition normal ENT: hard of hearing, NA/AT, normal oropharynx - Neck supple, trachea midline Neck: normal ROM - Respiratory Respiratory: bilateral: CTA (no increased effort) - Cardiovascular Rhythm: regular Heart sounds: normal: S1, S2 leg Peripheral Edema: left: Trace ankle Peripheral Edema: left: Trace foot Peripheral Edema: left: Trace (Right BKA) - Gastrointestinal General gastrointestinal: normal bowel sounds, soft - Integumentary Integumentary: normal - Neurologic No focal defects Neurologic: CNII-XII intact - Musculoskeletal wheelchair bound Musculoskeletal: generalized weakness, strength equal bilaterally - Psychiatric Psychiatric: A&O x's 3, appropriate affect Results CBC & Chem 7: 06/08/18 15:27 06/10/18 06:54 Labs: Abnormal Lab Results - Last 24 Hours (Table) 06/10/18 Range/Units 06:54 Chloride 112 H (98-107) mmol/L Microbiology - Last 24 Hours (Table) 06/09/18 11:24 Gram Stain - Preliminary Leg - Left Wound Culture - Preliminary 06/08/18 15:27 Blood Culture - Preliminary Blood No Growth after 24 hours 06/09/18 11:24 Anaerobic Culture - Preliminary Leg - Left Venous US: report reviewed Assessment and Plan Plan: Assessment and Recommendations: 1. Non-Diagnsotic Venous Ultrasound of Bilateral Lower Extremities: - Unable to determine if evidence of deep vein thrombus is present per report. - WIth associated Lower extremity cellulitis, active infection and edema in lower extremities this could relate to the unclear findings - POtential of chronic thrombosis. Patient has sedative activity level related to chronic lower extremity ulcers, although determined as a fall risk. - Recommendations at this time are to increase her prophylaxic heparin sub cut and monitor for clinical changes or suggestive signs of thrombus. - Repeat Lower extremity doppler on Tuesday to reassess. - case has been discussed with Dr. Singh and Dr. Sánchez. - Check a d-dimer [facility] for allowing us to participate in the care of this patient, we will continue to follow along with you
[2018-06-11] MEDS: HEPARIN SODIUM,PORCINE 5,000 UNIT/ML 1 ML VIAL SQ SCH ×3 (00:13→15:13)
--- NOTE | 2018-06-11 06:34 | PN ---
PROGRESS NOTE DATE OF SERVICE: 06/10/2018. REASON FOR FOLLOW UP: Left leg wound cellulitis. INTERVAL HISTORY: The patient is currently afebrile. She is breathing comfortably. Pain to the left leg has slightly eased off. No drainage. Denies any chest pain, shortness of breath or cough. No abdominal pain and no diarrhea. EXAMINATION: Blood pressure 149/68 with a pulse of 72, temperature 98.6. She is 94% on room air. General description is an elderly female lying in bed in no distress. Respiratory system: Unlabored breathing. Clear to auscultation anteriorly. Heart S1, S2. Regular rate and rhythm. Abdomen soft, no tenderness. Left leg swelling with slightly decreased. No drainage on the dressing. LABS: BUN of 16, creatinine 0.65. Wound culture currently pending. DIAGNOSTIC IMPRESSION AND PLAN: Patient with left leg wound with secondary cellulitis. The patient at this time on vancomycin, pharmacy to dose while waiting for the culture to finalize. Local wound care to continue with the Santyl followed by moist dressing. Continue supportive care. MMODL / IJN: [id number] /
[2018-06-11] MEDS: FAMOTIDINE 20 MG TAB PO SCH ×2 (08:03→21:32)
[2018-06-11] MEDS: FUROSEMIDE 20 MG TAB PO SCH (08:03)
[2018-06-11] MEDS: ASPIRIN 81 MG PO SCH (08:03)
[2018-06-11] MEDS: MULTIVITAMINS, THERA 1 EACH TAB PO SCH (08:03)
[2018-06-11] MEDS: COLLAGENASE 250 UNIT/GM OINTMENT 30 GM TUBE TOPICAL SCH (08:04)
[2018-06-11] MEDS: SODIUM CHLORIDE 0.9% 1,000 ML IV SCH ×2 (08:16→19:16)
[2018-06-11 08:24] LABS: Basophils % (A) 0 %; Eosinophils # (A) 0.5 k/uL (0-0.7); Eosinophils % (A) 7 %; HCT 37.4 % (34.0-46.0); Lymphocytes # (A) 1.6 k/uL (1.0-4.8); Lymphocytes % (A) 24 %; MCH 29.3 pg (25.0-35.0); MCV 91.3 fL (80.0-100.0); Mean Platelet Volume 7.3; Monocytes # (A) 0.5 k/uL (0-1.0); Monocytes % (A) 7 %; Neutrophils # (A) 4.1 k/uL (1.3-7.7); Neutrophils % (A) 60 %; Platelet Count 355 k/uL (150-450); RBC 4.09 m/uL (3.80-5.40); RDW 14.7 % (11.5-15.5); WBC 6.8 k/uL (3.8-10.6)
[2018-06-11 08:27] LABS: Anion Gap 6 mmol/L; Blood Urea Nitrogen 13 mg/dL (7-17); Calcium 8.7 mg/dL (8.4-10.2); Carbon Dioxide 25 mmol/L (22-30); Chloride 110 mmol/L (98-107); Glucose 72 mg/dL (74-99); Potassium 3.9 mmol/L (3.5-5.1); Sodium 141 mmol/L (137-145)
--- NOTE | 2018-06-11 12:07 | PN ---
PROGRESS NOTE This is 83-year-old female, well known to me from the wound clinic. The patient has been admitted with marked cellulitis of the left lower extremity. The patient has a venostasis ulcer of the left ankle, which we have been treating of the wound currently with Santyl cream. Due to stay in the hospital, her cellulitis and redness are getting better and she is on IV antibiotic. We will continue with Santyl cream and compression wrap. If the patient goes home, I will follow in the wound clinic on every Tuesday. MMODL / IJN: [id number] /
--- NOTE | 2018-06-11 12:09 | P.PN ---
Subjective 83 yo F with pmh of osteoarthritis, pneumonia, rectal prolapse, bilateral lower extremity ulcers since 2002, and she follow up with wound clinic for her right ankle/foot ulcer, seen by Dr. Quezada, she has history of leg edema and coronary protein malnutrition, anemia, history of lupus, history of MRSA in her ankle wound, she is wheelchair bound, hold presents because of left leg cellulitis and weeping wound which is getting worse over the last 2 days. In the emergency room's her Vitas looks stable, however today she has low grade fever 99.7. Left foot x-ray shows no evidence of osteomyelitis or acute events (as per radiology report), patient already started on IV vancomycin, as she has history of MRSA in her left wound. She is currently also on Cipro 06/11/2018 Patients not in distress, per left leg cellulitis is improving. On broad- spectrum antibiotics pending the wound culture results. ID and surgery teams R following the patient. Patient have suspicious nondiagnostic changes on the Doppler of the lower extremity, not sure if this thrombus or just chronic changes. Hematology oncology consult is appreciated. We are going to check the Doppler in one or 2 days Objective - Vital Signs Vital signs: Vital Signs Temp 97.6 F 06/11/18 05:05 Pulse 67 06/11/18 05:05 Resp 16 06/11/18 05:05 BP 157/76 06/11/18 05:05 Pulse Ox 94 L 06/11/18 05:05 Intake & Output 06/10/18 06/11/18 06/11/18 18:59 06:59 18:59 Intake Total 1150 1090 Balance 1150 1090 Weight 49.895 kg Intake: Intake, IV Titration 700 250 Amount Sodium Chloride 0.9% 1, 600 000 ml @ 75 mls/hr IV . [id number] [facility] Rx#:[id number] Vancomycin 1,000 mg In 250 Sodium Chloride 0.9% 250 ml @ 125 mls/hr IVPB Q24H [facility] Rx#:[id number] cefTAZidime 2 gm In 100 Sodium Chloride 0.9% 100 ml @ 100 mls/hr IVPB Q8HR [facility] Rx#:[id number] Oral 450 840 Other: Voiding Method Bedpan Bedpan Bedpan # Voids 2 3 # Bowel Movements 1 - Exam GENERAL: The patient is alert and oriented x3, not in any acute distress. Well developed, well nourished. HEENT: Pupils are round and equally reacting to light. EOMI. No scleral icterus. No conjunctival pallor. Normocephalic, atraumatic. No pharyngeal erythema. No thyromegaly. CARDIOVASCULAR: S1 and S2 present. No murmurs, rubs, or gallops. PULMONARY: Chest is clear to auscultation, no wheezing or crackles. ABDOMEN: Soft, nontender, nondistended, normoactive bowel sounds. No palpable organomegaly. MUSCULOSKELETAL: No joint swelling or deformity. EXTREMITIES: No cyanosis, clubbing, or pedal edema. -Right AKA. left ankle and foot are red, swelling, and warm and tender to touch , with the wound on the lateral side of the left ankle, with purulent discharge at the base. Patient can move her ankle up and down doesn't look ankle swelling. And she feels the sensation of the toes. Positive dorsalis pedis NEUROLOGICAL: Gross neurological examination did not reveal any focal deficits. SKIN: No rashes. - Labs CBC & Chem 7: 06/11/18 07:05 06/11/18 07:05 Labs: Abnormal Lab Results - Last 24 Hours (Table) 06/10/18 06/11/18 Range/Units 19:07 07:05 D-Dimer 1.17 H (<0.60) mg/L FEU Chloride 110 H (98-107) mmol/L Glucose 72 L (74-99) mg/dL Microbiology - Last 24 Hours (Table) 06/08/18 15:27 Blood Culture - Preliminary Blood No Growth after 48 hours Assessment and Plan Plan: -Left leg wound, and surrounding cellulitis. Patient has history of MRSA in the wound. She is follow-up with Dr. Ness and his been seen by Dr. Jiménez from [place] before and their input is appreciated. We'll consult both. wound culture: pending . Patient already started on IV vancomycin and ceftazidime, she is on IV fluids. She was on Cipro at home which was will be discontinued -Venous Doppler: possible b/l chronic wall changes and thrombosis, non-occluding , findings are not diagnostic. We still assess and the risks and benefits of anticoagulation . call hematology consult: Appreciated -History of chronic left venous ulcer, as above, consult with Dr. Ness. Follow-up as an outpatient -History of osteoarthritis DVT prophylaxis subcutaneous heparin, increased frequency GI prophylaxis Pepcid Prognosis is guarded
[2018-06-11] MEDS: VANCOMYCIN 1,000 MG in SODIUM CHLORIDE 0.9% 250 ML IVPB SCH (19:15)
--- NOTE | 2018-06-12 00:04 | PN ---
PROGRESS NOTE DATE OF SERVICE: 06/11/2018. REASON FOR FOLLOWUP: Left leg wound with secondary cellulitis. INTERVAL HISTORY: The patient is currently afebrile. She is breathing comfortably. Denies having any chest pain or shortness of breath or cough. No abdominal pain. No worsening of pain in the left lateral leg wound area. EXAMINATION: Blood pressure 124/70 with a pulse of 82, temperature 97.9. She is 92% on room air. GENERAL DESCRIPTION: An elderly female lying in bed in no distress. RESPIRATORY SYSTEM: Unlabored breathing. Clear to auscultation anteriorly. HEART: S1, S2. Regular rate and rhythm. ABDOMEN: Soft, nontender. EXTREMITIES: Left leg wound is currently dressed. No drainage noted. LABS: Wound cultures are currently pending. DIAGNOSTIC IMPRESSION AND PLAN: Patient with left lateral leg wound with secondary cellulitis. Previous culture positive for MRSA and Pseudomonas, however, current cultures currently pending. The patient is to continue with local care and continue vancomycin while waiting for the culture to finalize. Continue supportive care. MMODL / IJN: [id number] /
[2018-06-12] MEDS: HEPARIN SODIUM,PORCINE 5,000 UNIT/ML 1 ML VIAL SQ SCH ×3 (00:07→17:48)
[2018-06-12 06:54] LABS: Basophils % (A) 1 %; Eosinophils # (A) 0.5 k/uL (0-0.7); Eosinophils % (A) 8 %; HCT 37.7 % (34.0-46.0); HGB 11.9 gm/dL (11.4-16.0); Lymphocytes # (A) 1.5 k/uL (1.0-4.8); Lymphocytes % (A) 23 %; MCH 28.7 pg (25.0-35.0); MCHC 31.5 g/dL (31.0-37.0); Mean Platelet Volume 6.2; Monocytes # (A) 0.3 k/uL (0-1.0); Monocytes % (A) 5 %; Neutrophils # (A) 4.1 k/uL (1.3-7.7); Neutrophils % (A) 61 %; Platelet Count 354 k/uL (150-450); RBC 4.14 m/uL (3.80-5.40); RDW 14.7 % (11.5-15.5); WBC 6.6 k/uL (3.8-10.6)
[2018-06-12 07:01] LABS: Anion Gap 3 mmol/L; Blood Urea Nitrogen 15 mg/dL (7-17); Calcium 8.8 mg/dL (8.4-10.2); Carbon Dioxide 26 mmol/L (22-30); Chloride 112 mmol/L (98-107); Glucose 80 mg/dL (74-99); Sodium 141 mmol/L (137-145)
[2018-06-12] MEDS: FUROSEMIDE 20 MG TAB PO SCH (07:50)
[2018-06-12] MEDS: ASPIRIN 81 MG PO SCH (07:50)
[2018-06-12] MEDS: FAMOTIDINE 20 MG TAB PO SCH (07:50)
[2018-06-12] MEDS: COLLAGENASE 250 UNIT/GM OINTMENT 30 GM TUBE TOPICAL SCH (07:51)
--- NOTE | 2018-06-12 10:04 | P.PN ---
Subjective 83 yo F with pmh of osteoarthritis, pneumonia, rectal prolapse, bilateral lower extremity ulcers since 2002, and she follow up with wound clinic for her right ankle/foot ulcer, seen by Dr. Quezada, she has history of leg edema and coronary protein malnutrition, anemia, history of lupus, history of MRSA in her ankle wound, she is wheelchair bound, hold presents because of left leg cellulitis and weeping wound which is getting worse over the last 2 days. In the emergency room's her Vitas looks stable, however today she has low grade fever 99.7. Left foot x-ray shows no evidence of osteomyelitis or acute events (as per radiology report), patient already started on IV vancomycin, as she has history of MRSA in her left wound. She is currently also on Cipro 06/11/2018 Patients not in distress, per left leg cellulitis is improving. On broad- spectrum antibiotics pending the wound culture results. ID and surgery teams R following the patient. Patient have suspicious nondiagnostic changes on the Doppler of the lower extremity, not sure if this thrombus or just chronic changes. Hematology oncology consult is appreciated. We are going to check the Doppler in one or 2 days 06/12/2018 Patients not in distress, per left leg cellulitis continues to improve. On broad-spectrum antibiotics pending the wound culture results. ID and surgery teams are following the patient. Patient have suspicious nondiagnostic changes on the Doppler of the lower extremity, not sure if this thrombus or just chronic changes. Hematology oncology consult is appreciated. We are going to check the Doppler of the lower ext m, we increased her sc heparin dose for now I spoke with the son who is a family physician, Dr. 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 Objective - Vital Signs Vital signs: Vital Signs Temp 97.3 F L 06/12/18 08:50 Pulse 83 06/12/18 08:50 Resp 16 06/12/18 08:50 BP 121/62 06/12/18 08:50 Pulse Ox 97 06/12/18 08:50 Intake & Output 06/11/18 06/12/18 06/12/18 18:59 06:59 18:59 Intake Total 1600 1485 Balance 1600 1485 Intake: Intake, IV Titration 700 925 Amount Sodium Chloride 0.9% 1, 600 675 000 ml @ 75 mls/hr IV . [id number] PB Rx#:[id number] Vancomycin 1,000 mg In 250 Sodium Chloride 0.9% 250 ml @ 125 mls/hr IVPB Q24H PB Rx#:[id number] cefTAZidime 2 gm In 100 Sodium Chloride 0.9% 100 ml @ 100 mls/hr IVPB Q8HR PB Rx#:[id number] Oral 900 560 Other: Voiding Method Bedpan Bedpan # Voids 3 1 # Bowel Movements 1 - Exam GENERAL: The patient is alert and oriented x3, not in any acute distress. Well developed, well nourished. HEENT: Pupils are round and equally reacting to light. EOMI. No scleral icterus. No conjunctival pallor. Normocephalic, atraumatic. No pharyngeal erythema. No thyromegaly. CARDIOVASCULAR: S1 and S2 present. No murmurs, rubs, or gallops. PULMONARY: Chest is clear to auscultation, no wheezing or crackles. ABDOMEN: Soft, nontender, nondistended, normoactive bowel sounds. No palpable organomegaly. MUSCULOSKELETAL: No joint swelling or deformity. EXTREMITIES: No cyanosis, clubbing, or pedal edema. -Right AKA. left ankle and foot are red, swelling, and warm and tender to touch , with the wound on the lateral side of the left ankle, with purulent discharge at the base, (ALL improving) . Patient can move her ankle up and down doesn't look ankle swelling. And she feels the sensation of the toes. Positive dorsalis pedis NEUROLOGICAL: Gross neurological examination did not reveal any focal deficits. SKIN: No rashes. - Labs CBC & Chem 7: 06/12/18 06:30 06/12/18 06:30 Labs: Abnormal Lab Results - Last 24 Hours (Table) 06/12/18 Range/Units 06:30 Chloride 112 H (98-107) mmol/L Microbiology - Last 24 Hours (Table) 06/08/18 15:27 Blood Culture - Preliminary Blood No Growth after 72 hours 06/09/18 11:24 Anaerobic Culture - Preliminary Leg - Left 06/09/18 11:24 Gram Stain - Final Leg - Left Wound Culture - Final Assessment and Plan Plan: -Left leg wound, and surrounding cellulitis. Patient has history of MRSA in the wound. She is follow-up with Dr. Ness and his been seen by Dr. Jiménez from ID before and their input is appreciated. We'll consult both. wound culture: pending . Patient already started on IV vancomycin and ceftazidime, she is on IV fluids. She was on Cipro at home which was will be discontinued -Venous Doppler: possible b/l chronic wall changes and thrombosis, non-occluding , findings are not diagnostic. We still assess and the risks and benefits of anticoagulation . hematology consult: Appreciated and they recommended to repeat LE doppler(ordered) -History of chronic left venous ulcer, as above, consult with Dr. Ness. Follow-up as an outpatient -History of osteoarthritis -decondistioning and difficulty taking care of self with multiple admission for her leg wound, discussed with son Mr. Chaudhary at [phone] upon pt request an, PT/OT: Pending, group social worker evaluation for possible placement versus rehab -Questions regarding her capacity to make medical decision, called psychiatric consult: pending DVT prophylaxis subcutaneous heparin, increased frequency GI prophylaxis Pepcid Prognosis is guarded
[2018-06-12] MEDS: MULTIVITAMINS, THERA 1 EACH TAB PO SCH (12:58)
--- NOTE | 2018-06-12 14:05 | US ---
EXAMINATION TYPE: US venous doppler duplex LE BI DATE OF EXAM: 06/12/2018 11:15 AM COMPARISON: 06/09/2018 CLINICAL HISTORY: 83-year-old female follow-up of her chronic changes in leg veins. F/U chronic grubbs es SIDE PERFORMED: Bilateral TECHNIQUE: The lower extremity deep venous system is examined utilizing real time linear array sonog josy with graded compression, doppler sonography and color-flow sonography. FINDINGS: VESSELS IMAGED: External Iliac Vein (EIV) Common Femoral Vein Deep Femoral Vein Greater Saphenous Vein * Femoral Vein Popliteal Vein Small Saphenous Vein * Proximal Calf Veins (* superficial vessels) Right leg below the knee amputee Right Leg: Femoral and popliteal veins small in caliber, non-occluding echogenic thrombus at proxima l femoral portion Left Leg: Negative for DVT IMPRESSION: 1. Left: Interval clearance of previous nonocclusive DVT in the left lower extremity. 2. 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
--- NOTE | 2018-06-12 16:12 | P.PN ---
Subjective Progress Note Date: 06/12/18 Principal diagnosis: Cellulitis No acute events, no increased swelling in right upper thigh or left extremity. No increased pain to suggest thrombus Objective - Vital Signs Vital signs: Vital Signs Temp 97.3 F L 06/12/18 08:50 Pulse 83 06/12/18 08:50 Resp 16 06/12/18 08:50 BP 121/62 06/12/18 08:50 Pulse Ox 97 06/12/18 08:50 Intake & Output 06/11/18 06/12/18 06/12/18 18:59 06:59 18:59 Intake Total 1600 1485 525 Balance 1600 1485 525 Intake: Intake, IV Titration 700 925 525 Amount Sodium Chloride 0.9% 1, 600 675 525 000 ml @ 75 mls/hr IV . [id number] [facility] Rx#:[id number] Vancomycin 1,000 mg In 250 Sodium Chloride 0.9% 250 ml @ 125 mls/hr IVPB Q24H PB Rx#:[id number] cefTAZidime 2 gm In 100 Sodium Chloride 0.9% 100 ml @ 100 mls/hr IVPB Q8HR [facility] Rx#:[id number] Oral 900 560 Other: Voiding Method Bedpan Bedpan Bedpan # Voids 3 1 # Bowel Movements 1 - Constitutional General appearance: Present: cooperative, no acute distress - EENT Eyes: Present: EOMI, dentition normal ENT: Present: hard of hearing, NA/AT, normal oropharynx - Neck Details: supple Neck: Present: normal ROM - Respiratory Respiratory: bilateral: CTA - Cardiovascular Rhythm: regular Heart sounds: normal: S1, S2 - Peripheral edema leg Peripheral Edema: absent: None (Cellulitis Left Extremity, Right BKA. No increase edema or pain) - Gastrointestinal General gastrointestinal: Present: normal bowel sounds, soft - Integumentary Integumentary: Present: pale - Neurologic Neurologic: Present: CNII-XII intact - Musculoskeletal Musculoskeletal: Present: generalized weakness, right sided weakness - Psychiatric Psychiatric: Present: A&O x's 3, appropriate affect - Labs CBC & Chem 7: 06/12/18 06:30 06/12/18 06:30 Labs: Abnormal Lab Results - Last 24 Hours (Table) 06/12/18 Range/Units 06:30 Chloride 112 H (98-107) mmol/L Microbiology - Last 24 Hours (Table) 06/08/18 15:27 Blood Culture - Preliminary Blood No Growth after 72 hours 06/09/18 11:24 Anaerobic Culture - Preliminary Leg - Left 06/09/18 11:24 Gram Stain - Final Leg - Left Wound Culture - Final Assessment and Plan Plan: Assessment and Recommendations: 1. Non-Diagnsotic Venous Ultrasound of Bilateral Lower Extremities: - Unable to determine if evidence of deep vein thrombus is present per report. - WIth associated Lower extremity cellulitis, active infection and edema in lower extremities this could relate to the unclear findings - POtential of chronic thrombosis. Patient has sedative activity level related to chronic lower extremity ulcers, although determined as a fall risk. - Recommendations at this time are to increase her prophylaxic heparin sub cut and monitor for clinical changes or suggestive signs of thrombus. - Repeat Lower extremity doppler on Tuesday to reassess. - case has been discussed with Dr. Singh and Dr. Sánchez. - D-Dimer without concerning elevation. - Recheck Doppler Tuesday [place] for allowing us to participate in the care of this patient, we will continue to follow along with you
[2018-06-12] MEDS: SODIUM CHLORIDE 0.9% 1,000 ML IV SCH ×2 (17:49→21:36)
[2018-06-12] MEDS ORDERED: VANCOMYCIN TROUGH DUE 1 EACH MISC MISCELLANE ONE (18:30)
[2018-06-12] MEDS: VANCOMYCIN 1,000 MG in SODIUM CHLORIDE 0.9% 250 ML IVPB SCH (20:59)
--- NOTE | 2018-06-12 23:41 | PN ---
PROGRESS NOTE DATE OF SERVICE: 06/12/2018. REASON FOR FOLLOWUP: Left leg wound with secondary cellulitis. INTERVAL HISTORY: The patient is currently afebrile. She is breathing comfortably. Denies having any chest pain, cough, abdominal pain or worsening pain in the left leg area. EXAMINATION: Blood pressure 97/50, pulse of 85, temperature 97.4. She is 94% on room air. GENERAL DESCRIPTION: An elderly female lying in bed in no distress. RESPIRATORY SYSTEM: Unlabored breathing. Clear to auscultation anteriorly. HEART: S1, S2. Regular rate and rhythm. ABDOMEN: Soft, nontender. EXTREMITIES: Left leg wound is currently dressed. No drainage noted. LABS: White count 6.6, BUN 15, creatinine 0.63. Vanco trough has been . Cultures are so far negative. DIAGNOSTIC IMPRESSION AND PLAN: Patient with left lateral leg wound with secondary cellulitis. Continue local wound care with Santyl followed by moist dressing. Currently on Fortaz and vanco, however, results of culture has been . Continue with oral antibiotics. Continue with supportive care. MMODL / IJN: [id number] /
[2018-06-13] MEDS: HEPARIN SODIUM,PORCINE 5,000 UNIT/ML 1 ML VIAL SQ SCH ×3 (00:41→17:19)
[2018-06-13 07:23] LABS: Basophils % (A) 0 %; Eosinophils # (A) 0.6 k/uL (0-0.7); Eosinophils % (A) 10 %; HCT 38.3 % (34.0-46.0); HGB 11.8 gm/dL (11.4-16.0); Hypochromasia Slight; Lymphocytes # (A) 1.5 k/uL (1.0-4.8); Lymphocytes % (A) 24 %; MCH 28.6 pg (25.0-35.0); MCHC 30.8 g/dL (31.0-37.0); MCV 92.9 fL (80.0-100.0); Mean Platelet Volume 6.7; Monocytes # (A) 0.4 k/uL (0-1.0); Monocytes % (A) 6 %; Neutrophils # (A) 3.5 k/uL (1.3-7.7); Neutrophils % (A) 57 %; Platelet Count 333 k/uL (150-450); RBC 4.13 m/uL (3.80-5.40); RDW 14.6 % (11.5-15.5); WBC 6.2 k/uL (3.8-10.6)
[2018-06-13 07:52] LABS: Anion Gap 4 mmol/L; Blood Urea Nitrogen 20 mg/dL (7-17); Calcium 8.6 mg/dL (8.4-10.2); Carbon Dioxide 26 mmol/L (22-30); Chloride 112 mmol/L (98-107); Glucose 76 mg/dL (74-99); Potassium 4.2 mmol/L (3.5-5.1); Sodium 142 mmol/L (137-145)
[2018-06-13] MEDS: ASPIRIN 81 MG PO SCH (08:55)
[2018-06-13] MEDS: FUROSEMIDE 20 MG TAB PO SCH (08:55)
[2018-06-13] MEDS: FAMOTIDINE 20 MG TAB PO SCH (08:56)
[2018-06-13] MEDS: COLLAGENASE 250 UNIT/GM OINTMENT 30 GM TUBE TOPICAL SCH (09:03)
[2018-06-13] MEDS: MULTIVITAMINS, THERA 1 EACH TAB PO SCH (09:03)
--- NOTE | 2018-06-13 12:28 | P.PN ---
Subjective Progress note being dictated for Dr. Cerrato. Interval History:83 yo F with pmh of osteoarthritis, pneumonia, rectal prolapse , bilateral lower extremity ulcers since 2002, and she follow up with wound clinic for her right ankle/foot ulcer, seen by Dr. Quezada, she has history of leg edema and coronary protein malnutrition, anemia, history of lupus, history of MRSA in her ankle wound, she is wheelchair bound, hold presents because of left leg cellulitis and weeping wound which is getting worse over the last 2 days. In the emergency room's her Vitas looks stable, however today she has low grade fever 99.7. Left foot x-ray shows no evidence of osteomyelitis or acute events (as per radiology report), patient already started on IV vancomycin, as she has history of MRSA in her left wound. She is currently also on Cipro 06/11/2018 Patients not in distress, per left leg cellulitis is improving. On broad- spectrum antibiotics pending the wound culture results. ID and surgery teams R following the patient. Patient have suspicious nondiagnostic changes on the Doppler of the lower extremity, not sure if this thrombus or just chronic changes. Hematology oncology consult is appreciated. We are going to check the Doppler in one or 2 days 06/12/2018 Patients not in distress, per left leg cellulitis continues to improve. On broad-spectrum antibiotics pending the wound culture results. ID and surgery teams are following the patient. Patient have suspicious nondiagnostic changes on the Doppler of the lower extremity, not sure if this thrombus or just chronic changes. Hematology oncology consult is appreciated. We are going to check the Doppler of the lower ext m, we increased her sc heparin dose for now I spoke with the son who is a family physician, Dr. Chaudhary at [phone], and listened to his concerns and details, he states the patient had a right AKA on February,, and she had problems and wounds of her left leg but she had hard time following the recommendation to keep it elevated and help it with healing, for example she might stay in her wheelchair overnight, with her legs down, she had home healthcare before but that's was not enough for her, he suggested physical therapy evaluation and possible referral for subacute rehab versus assisted living Also he had some concerns about her capacity to make medical decision and he requested evaluation for this purpose, we are going to call psychiatrist consult based upon his wishes. 06/13/18 left lower extremity cellulitis/venous stasis ulcer improving on IV antibiotics and local wound care with Santyl. Afebrile, normal WBC. Consuming 50 -75% of meals with no nausea vomiting. No abdominal pain. Denies chest pain, palpitations or increasing shortness of breath. Repeat venous Doppler reporting left leg negative for DVT, right leg non-occluding echogenic thrombus at proximal femoral portion. Objective - Vital Signs Vital signs: Vital Signs Temp 98 F 06/13/18 07:00 Pulse 61 06/13/18 08:00 Resp 18 06/13/18 08:00 BP 138/66 06/13/18 07:00 Pulse Ox 95 06/13/18 07:00 Intake & Output 06/12/18 06/13/18 06/13/18 18:59 06:59 18:59 Intake Total 525 950 Balance 525 950 Intake: Intake, IV Titration 525 950 Amount Sodium Chloride 0.9% 1, 525 600 000 ml @ 75 mls/hr IV . [id number] PB Rx#:[id number] Vancomycin 1,000 mg In 250 Sodium Chloride 0.9% 250 ml @ 125 mls/hr IVPB Q24H PB Rx#:[id number] cefTAZidime 2 gm In 100 Sodium Chloride 0.9% 100 ml @ 100 mls/hr IVPB Q8HR PB Rx#:[id number] Other: Voiding Method Bedpan Bedpan Bedpan Diaper Diaper Incontinent Incontinent # Voids 1 # Bowel Movements 1 - Exam GENERAL: The patient is alert and oriented x3,sitting up in bed, no acute distress. HEENT: Pupils are round and equally reacting to light. EOMI. No scleral icterus. No conjunctival pallor. Normocephalic, atraumatic. No pharyngeal erythema. CARDIOVASCULAR: S1 and S2 present. No murmurs, rubs, or gallops. PULMONARY: Unlabored, Chest is clear to auscultation, no wheezing or crackles. ABDOMEN: Soft, nontender, nondistended, normoactive bowel sounds. No palpable organomegaly. EXTREMITIES: -Right AKA. left lower extremity wound dressing clean dry and intact. NEUROLOGICAL: Gross neurological examination did not reveal any focal deficits. Microbiology 06/09/18 11:24 Leg - Left Anaerobic Culture - Final 06/08/18 15:27 Blood Blood Culture - Preliminary No Growth after 96 hours 06/09/18 11:24 Leg - Left Gram Stain - Final 06/09/18 11:24 Leg - Left Wound Culture - Final - Labs CBC & Chem 7: 06/13/18 07:03 06/13/18 07:03 Labs: Abnormal Lab Results - Last 24 Hours (Table) 06/13/18 06/13/18 Range/Units 07:03 07:03 MCHC 30.8 L (31.0-37.0) g/dL Chloride 112 H (98-107) mmol/L BUN 20 H (7-17) mg/dL Microbiology - Last 24 Hours (Table) 06/08/18 15:27 Blood Culture - Preliminary Blood No Growth after 96 hours Assessment and Plan Assessment: -Left leg wound, with secondary cellulitis,history of MRSA. -Venous Doppler: possible b/l chronic wall changes and thrombosis, non-occluding , findings are not diagnostic. Repeat venous Doppler reporting left leg negative for DVT, right leg non-occluding echogenic thrombus at proximal femoral portion. Anticoagulation as per hematology. -History of chronic left venous ulcer, as above. -History of osteoarthritis -Medical debility, deconditioning;difficulty taking care of self with multiple admission for her leg wound. Plan: Continue on current medication regime , Pepcid, monitoring and symptomatic treatment. Antibiotics as per infectious disease. Wound care as per infectious disease/vascular surgery. Anticoagulation as per hematology. Evaluated by PT/OT with subacute rehab recommended at discharge. Further recommendations to follow. The impression and plan of care has been dictated as directed. : I performed a history and examination of this patient, discussed the same with the dictator. I agree with the dictator's note ,documented as a scribe. Any additional findings or plans will be noted.
--- NOTE | 2018-06-13 13:59 | P.PN ---
Subjective Progress Note Date: 06/13/18 Principal diagnosis: Cellulitis No acute events, no increased swelling in right upper thigh or left extremity. No increased pain to suggest thrombus acute thrombus. R Objective - Vital Signs Vital signs: Vital Signs Temp 98 F 06/13/18 07:00 Pulse 61 06/13/18 08:00 Resp 18 06/13/18 08:00 BP 138/66 06/13/18 07:00 Pulse Ox 95 06/13/18 07:00 Intake & Output 06/12/18 06/13/18 06/13/18 18:59 06:59 18:59 Intake Total 525 950 625 Balance 525 950 625 Intake: Intake, IV Titration 525 950 625 Amount Sodium Chloride 0.9% 1, 525 600 525 000 ml @ 75 mls/hr IV . [id number] [facility] Rx#:[id number] Vancomycin 1,000 mg In 250 Sodium Chloride 0.9% 250 ml @ 125 mls/hr IVPB Q24H PB Rx#:[id number] cefTAZidime 2 gm In 100 Sodium Chloride 0.9% 100 ml @ 100 mls/hr IVPB Q12HR PB Rx#:[id number] cefTAZidime 2 gm In 100 Sodium Chloride 0.9% 100 ml @ 100 mls/hr IVPB Q8HR [facility] Rx#:[id number] Other: Voiding Method Bedpan Bedpan Bedpan Diaper Diaper Incontinent Incontinent # Voids 1 # Bowel Movements 1 - Constitutional General appearance: Present: cooperative, no acute distress, thin - EENT Eyes: Present: EOMI, PERRLA, dentition normal ENT: Present: hard of hearing, NA/AT, normal oropharynx - Neck Details: supple, trachea midline Neck: Present: normal ROM - Respiratory Respiratory: bilateral: CTA (no increased respiratory effort) - Cardiovascular Rhythm: regular Heart sounds: normal: S1, S2 - Peripheral edema leg Peripheral Edema Comment(s): Right BKA, no increased edema right upper thigh or leg Left with dressings and cellulitis CDI, no increased edema, edema and erythema actually appear to be improved Peripheral Edema: bilateral: Trace (Right BKA) - Gastrointestinal General gastrointestinal: Present: normal bowel sounds, soft - Integumentary Integumentary: Present: pale - Neurologic Neurologic Comment(s): No focal Defects Neurologic: Present: CNII-XII intact - Psychiatric Psychiatric: Present: A&O x's 3, appropriate affect, intact judgment & insight - Labs CBC & Chem 7: 06/13/18 07:03 06/13/18 07:03 Labs: Abnormal Lab Results - Last 24 Hours (Table) 06/13/18 06/13/18 Range/Units 07:03 07:03 MCHC 30.8 L (31.0-37.0) g/dL Chloride 112 H (98-107) mmol/L BUN 20 H (7-17) mg/dL Microbiology - Last 24 Hours (Table) 06/09/18 11:24 Anaerobic Culture - Final Leg - Left 06/08/18 15:27 Blood Culture - Preliminary Blood No Growth after 96 hours - Imaging and Cardiology Venous US: report reviewed, image reviewed Assessment and Plan Plan: Assessment and Recommendations: 1. Non-Diagnsotic Venous Ultrasound of Bilateral Lower Extremities: - Unable to determine if evidence of deep vein thrombus is present per report. - WIth associated Lower extremity cellulitis, active infection and edema in lower extremities this could relate to the unclear findings - POtential of chronic thrombosis. Patient has sedative activity level related to chronic lower extremity ulcers, although determined as a fall risk. - Recommendations at this time are to increase her prophylaxic heparin sub cut and monitor for clinical changes or suggestive signs of thrombus. - Repeat Lower extremity doppler on Tuesday to reassess. - case has been discussed with Dr. Singh and Dr. Sánchez. - D-Dimer without concerning elevation. Reviewed repeat venous doppler of lower extremitries: Left interval clearance of previous non occlusive DVT and Right showed improvement in residual chronic non-occlusive thrombus in upper fem. Findings are still inconsistent and difficult to distiguish diagnostically, although with improvement and no s/s to suggest otherwise will continue with continued management. May consider aspirin or other at discharge, withe sedatary lifestyle and recurrent infections risk may be elevated. Will discuss with Dr. Nowak. Merlene for allowing us to participate in the care of this patient, we will continue to follow along with you
[2018-06-13] MEDS ORDERED: VANCOMYCIN 1,250 MG in SODIUM CHLORIDE 0.9% 250 ML IVPB SCH (18:00)
[2018-06-13 22:38] VITALS: RESP 16
[2018-06-14] MEDS: HEPARIN SODIUM,PORCINE 5,000 UNIT/ML 1 ML VIAL SQ SCH ×2 (00:39→08:39)
[2018-06-14] MEDS: SODIUM CHLORIDE 0.9% 1,000 ML IV SCH ×2 (04:34→04:35)
[2018-06-14 05:58] VITALS: BP 130/64; PULSE 63; TEMP 97.7
--- NOTE | 2018-06-14 06:37 | PN ---
PROGRESS NOTE DATE OF SERVICE: 06/13/2018. REASON FOR FOLLOWUP: Left leg wound with cellulitis. INTERVAL HISTORY: The patient is currently afebrile. She is breathing comfortably. Denies significant chest pain or cough. No abdominal pain or any worsening pain in the left leg area. EXAMINATION: Blood pressure 102/52 with a pulse of 72, temperature 97.7. She is 95% on room air. General description is an elderly female lying in bed in no distress. Respiratory system: Unlabored breathing. Clear to auscultation anteriorly. Heart S1, S2. Regular rate and rhythm. Abdomen soft, no tenderness. The left leg wound is currently dressed up. No obvious drainage on the dressing. LABS: BUN of 20, creatinine 0.70. White count 6.2. DIAGNOSTIC IMPRESSION AND PLAN: Patient with a left leg wound with secondary cellulitis. Continue local wound care with Santyl followed by moist dressing, antibiotic in the form of vancomycin and Fortaz. Hopefully finish therapy with oral antibiotics. Continue supportive care. MMODL / IJN: [id number] /
[2018-06-14] MEDS: FUROSEMIDE 20 MG TAB PO SCH (08:39)
[2018-06-14] MEDS: FAMOTIDINE 20 MG TAB PO SCH (08:39)
[2018-06-14] MEDS: ASPIRIN 81 MG PO SCH (08:39)
[2018-06-14] MEDS: COLLAGENASE 250 UNIT/GM OINTMENT 30 GM TUBE TOPICAL SCH (08:40)
[2018-06-14 11:22] LABS: Basophils % (A) 0 %; Eosinophils # (A) 0.5 k/uL (0-0.7); Eosinophils % (A) 9 %; HCT 36.9 % (34.0-46.0); HGB 11.6 gm/dL (11.4-16.0); Lymphocytes # (A) 1.5 k/uL (1.0-4.8); Lymphocytes % (A) 27 %; MCH 28.8 pg (25.0-35.0); MCHC 31.4 g/dL (31.0-37.0); MCV 91.6 fL (80.0-100.0); Mean Platelet Volume 7.1; Monocytes # (A) 0.4 k/uL (0-1.0); Monocytes % (A) 6 %; Neutrophils # (A) 3.2 k/uL (1.3-7.7); Neutrophils % (A) 55 %; Platelet Count 332 k/uL (150-450); RBC 4.03 m/uL (3.80-5.40); RDW 14.7 % (11.5-15.5); WBC 5.7 k/uL (3.8-10.6)
[2018-06-14] MEDS ORDERED: ENOXAPARIN 40 MG/0.4 ML SYRINGE SQ SCH (11:30)
[2018-06-14 11:36] LABS: Anion Gap 5 mmol/L; Blood Urea Nitrogen 16 mg/dL (7-17); Calcium 8.6 mg/dL (8.4-10.2); Carbon Dioxide 27 mmol/L (22-30); Chloride 110 mmol/L (98-107); Glucose 73 mg/dL (74-99); Potassium 4.2 mmol/L (3.5-5.1); Sodium 142 mmol/L (137-145)
[2018-06-14] MEDS: MULTIVITAMINS, THERA 1 EACH TAB PO SCH (11:54)
--- NOTE | 2018-06-14 11:55 | P.PN ---
Subjective Progress Note Date: 06/14/18 Principal diagnosis: Cellulitis Spoke to RN today and plan for patient to go to [facility] for Rehabilitation. WIth increased risk of thrombus and potential chronic DVT we recommend the patient continue on prophylaxic anticoagulation while in the care of the rehabilitation center with Lovenox 40mg sub cut daily and her already daily aspirin. Objective - Vital Signs Vital signs: Vital Signs Temp 97.7 F 06/14/18 05:00 Pulse 63 06/14/18 05:00 Resp 16 06/14/18 05:00 BP 130/64 06/14/18 05:00 Pulse Ox 96 06/14/18 05:00 Intake & Output 06/13/18 06/14/18 06/14/18 18:59 06:59 18:59 Intake Total 625 590 Balance 625 590 Intake: Intake, IV Titration 625 Amount Sodium Chloride 0.9% 1, 525 000 ml @ 75 mls/hr IV . [id number] [facility] Rx#:[id number] cefTAZidime 2 gm In 100 Sodium Chloride 0.9% 100 ml @ 100 mls/hr IVPB Q12HR PB Rx#:[id number] Oral 590 Other: Voiding Method Bedpan Bedpan Diaper Diaper Incontinent Incontinent # Voids 2 # Bowel Movements 1 - Constitutional General appearance: Present: cooperative, no acute distress, thin - EENT Eyes: Present: EOMI, PERRLA, dentition normal ENT: Present: hard of hearing, NA/AT, normal oropharynx - Neck Details: Supple, Trachea midline Neck: Present: normal ROM - Respiratory Respiratory: bilateral: CTA (no increased respiratory effort) - Cardiovascular Rhythm: regular Heart sounds: normal: S1, S2 - Peripheral edema leg Peripheral Edema Comment(s): Right BKA, no increased swelling or pain in right upper remaining leg. Left Lower extremity with erythema, and open cellulitis which has improved since admission.edema in left lower extremity has also improved, dressings are CDI Peripheral Edema: bilateral: Trace (See Note) - Gastrointestinal General gastrointestinal: Present: normal bowel sounds, soft - Integumentary Integumentary: Present: cellulitis, pale - Neurologic Neurologic Comment(s): no focal defects Neurologic: Present: CNII-XII intact - Musculoskeletal Musculoskeletal: Present: generalized weakness, strength equal bilaterally - Psychiatric Psychiatric: Present: A&O x's 3, appropriate affect - Labs CBC & Chem 7: 06/14/18 10:33 06/14/18 10:33 Labs: Abnormal Lab Results - Last 24 Hours (Table) 06/14/18 Range/Units 10:33 Chloride 110 H (98-107) mmol/L Glucose 73 L (74-99) mg/dL Microbiology - Last 24 Hours (Table) 06/08/18 15:27 Blood Culture - Preliminary Blood No Growth after 120 hours 06/09/18 11:24 Anaerobic Culture - Final Leg - Left Assessment and Plan Plan: Assessment and Recommendations: 1. Non-Diagnsotic Venous Ultrasound of Bilateral Lower Extremities: - Unable to determine if evidence of deep vein thrombus is present per report. - WIth associated Lower extremity cellulitis, active infection and edema in lower extremities this could relate to the unclear findings - POtential of chronic thrombosis. Patient has sedative activity level related to chronic lower extremity ulcers, although determined as a fall risk. - Recommendations at this time are to increase her prophylaxic heparin sub cut and monitor for clinical changes or suggestive signs of thrombus. - Repeat Lower extremity doppler on Tuesday to reassess. - case has been discussed with Dr. Singh and Dr. Sánchez. - D-Dimer without concerning elevation. Reviewed repeat venous doppler of lower extremitries: Left interval clearance of previous non occlusive DVT and Right showed improvement in residual chronic non-occlusive thrombus in upper fem. Findings are still inconsistent and difficult to distiguish diagnostically, although with improvement and no s/s to suggest otherwise will continue with continued management. May consider aspirin or other at discharge, with sedatary lifestyle and recurrent infections risk may be elevated. DISPO Recommendations - Patient be placed on Prophylaxic Lovenox while in ECF- Rehab, will also continue on Baby Aspirin. Merlene for allowing us to participate in the care of this patient, we will continue to follow along with you
--- NOTE | 2018-06-14 12:08 | P.DS ---
Providers Date of admission: 06/08/18 19:10 Expected date of discharge: 06/14/18 Attending physician: Lit Cerrato Consults: 06/09/18 10:27 Consult Physician Routine Consulting Provider: Ernesto Quezada Consult Reason/Comments: Left lower extremity wound/cellulitis Do you want consulting provider notified?: Yes 06/09/18 10:30 Consult Physician Routine Consulting Provider: Cherri Jiménez Consult Reason/Comments: left lower extremity wound/cellulitis Do you want consulting provider notified?: Yes 06/10/18 11:49 Consult Physician Routine Consulting Provider: Jorge Nowak Consult Reason/Comments: recommendations on anticoagulation Do you want consulting provider notified?: Yes Primary care physician: Jose Reese MD Hospital Course: Final Diagnoses: -Left leg wound, with secondary cellulitis,history of MRSA. -Venous Doppler: possible b/l chronic wall changes and thrombosis, non-occluding , findings are not diagnostic. Repeat venous Doppler reporting left leg negative for DVT, right leg non-occluding echogenic thrombus at proximal femoral portion. Anticoagulation as per hematology. -History of chronic left venous ulcer, as above. -History of osteoarthritis -Medical debility, deconditioning;difficulty taking care of self with multiple admission for her leg wound. Hospital COurse:Interval History:83 yo F with pmh of osteoarthritis, pneumonia, rectal prolapse, bilateral lower extremity ulcers since 2002, and she follow up with wound clinic for her right ankle/foot ulcer, seen by Dr. Quezada, she has history of leg edema and coronary protein malnutrition, anemia, history of lupus , history of MRSA in her ankle wound, she is wheelchair bound, hold presents because of left leg cellulitis and weeping wound which is getting worse over the last 2 days. In the emergency room's her Vitas looks stable, however today she has low grade fever 99.7. Left foot x-ray shows no evidence of osteomyelitis or acute events (as per radiology report), patient already started on IV vancomycin, as she has history of MRSA in her left wound. She is currently also on Cipro 06/11/2018 Patients not in distress, per left leg cellulitis is improving. On broad- spectrum antibiotics pending the wound culture results. ID and surgery teams R following the patient. Patient have suspicious nondiagnostic changes on the Doppler of the lower extremity, not sure if this thrombus or just chronic changes. Hematology oncology consult is appreciated. We are going to check the Doppler in one or 2 days 06/12/2018 Patients not in distress, per left leg cellulitis continues to improve. On broad-spectrum antibiotics pending the wound culture results. ID and surgery teams are following the patient. Patient have suspicious nondiagnostic changes on the Doppler of the lower extremity, not sure if this thrombus or just chronic changes. Hematology oncology consult is appreciated. We are going to check the Doppler of the lower ext m, we increased her sc heparin dose for now I spoke with the son who is a family physician, Dr. Chaudhary at [phone], and listened to his concerns and details, he states the patient had a right AKA on February,, and she had problems and wounds of her left leg but she had hard time following the recommendation to keep it elevated and help it with healing, for example she might stay in her wheelchair overnight, with her legs down, she had home healthcare before but that's was not enough for her, he suggested physical therapy evaluation and possible referral for subacute rehab versus assisted living Also he had some concerns about her capacity to make medical decision and he requested evaluation for this purpose, we are going to call psychiatrist consult based upon his wishes. 06/13/18 left lower extremity cellulitis/venous stasis ulcer improving on IV antibiotics and local wound care with Santyl. Afebrile, normal WBC. Consuming 50 -75% of meals with no nausea vomiting. No abdominal pain. Denies chest pain, palpitations or increasing shortness of breath. Repeat venous Doppler reporting left leg negative for DVT, right leg non-occluding echogenic thrombus at proximal femoral portion. No overnight events. Maintained on IV antibiotics,Wound cx. reported no organisms, no isolated anerobes.Patient to be anticoagulated with both Lovenox and ASA related potential chronic DVT, increased risk of thrombus, as per Hematology.Significant clinical improvement. Cleared by all consults for DC.Patient will be discharged to ECF in a stable condition with guarded prognosis. Exam GENERAL: The patient is alert and oriented x3, no acute distress. CARDIOVASCULAR: S1 and S2 present. No murmurs, rubs, or gallops. PULMONARY:Clear to auscultation, no wheezing or crackles. ABDOMEN: Soft, nontender, nondistended, normoactive bowel sounds. NEUROLOGICAL: Gross neurological examination did not reveal any focal deficits. Microbiology 06/08/18 15:27 Blood Blood Culture - Preliminary No Growth after 120 hours 06/09/18 11:24 Leg - Left Anaerobic Culture - Final 06/09/18 11:24 Leg - Left Gram Stain - Final 06/09/18 11:24 Leg - Left Wound Culture - Final The impression and plan of care has been dictated as directed. : I performed a history and examination of this patient, discussed the same with the dictator. I agree with the dictator's note ,documented as a scribe. Any additional findings or plans will be noted. Time taken: 35 min. Patient Condition at Discharge: Stable Plan - Discharge Summary Discharge Rx Participant: No New Discharge Prescriptions: New Acetaminophen Tab [Tylenol] 650 mg PO Q6HR PRN tab PRN Reason: Mild Pain Or Fever > 100.5 Famotidine [Pepcid] 20 mg PO DAILY tab Doxycycline Hyclate 100 mg PO BID #20 tab Pantoprazole Sodium [Protonix] 40 mg PO BID #60 tablet. Enoxaparin [Lovenox] 40 mg SQ DAILY #30 syringe Continue Multivit-Min/Iron/Folic/Lutein [Centrum Silver Women Tablet] 1 tab PO DAILY Aspirin 81 mg PO DAILY Loratadine [Claritin] 10 mg PO DAILY PRN PRN Reason: Allergy Symptoms Furosemide [Lasix] 20 mg PO DAILY Turmeric Root Extract [Turmeric] 500 mg PO DAILY Collagenase [Santyl] 1 applic TOPICAL DAILY Discontinued Grapefruit Supplement 1 tab PO DAILY Ciprofloxacin HCl [Cipro] 500 mg PO Q12HR Discharge Medication List Multivit-Min/Iron/Folic/Lutein [Centrum Silver Women Tablet] 1 tab PO DAILY [History] Aspirin 81 mg PO DAILY 06/21/17 [History] Furosemide [Lasix] 20 mg PO DAILY 01/31/18 [History] Loratadine [Claritin] 10 mg PO DAILY PRN 01/31/18 [History] Turmeric Root Extract [Turmeric] 500 mg PO DAILY 06/08/18 [History] Collagenase [Santyl] 1 applic TOPICAL DAILY 06/09/18 [History] Acetaminophen Tab [Tylenol] 650 mg PO Q6HR PRN tab 06/14/18 [Rx] Doxycycline Hyclate 100 mg PO BID #20 tab 06/14/18 [Rx] Enoxaparin [Lovenox] 40 mg SQ DAILY #30 syringe 06/14/18 [Rx] Famotidine [Pepcid] 20 mg PO DAILY tab 06/14/18 [Rx] Pantoprazole Sodium [Protonix] 40 mg PO BID #60 tablet. 06/14/18 [Rx] Follow up Appointment(s)/Referral(s): Jose Reese MD [Primary Care Provider] - 1 Week (after dc from ECF) Ernesto Quezada MD [STAFF PHYSICIAN] - 06/19/18 (Wound Center, call for appointment time ) Activity/Diet/Wound Care/Special Instructions: ECF: left lateral leg wound care with santyl followed by mosit dressing change daily Mycolog cream to the left lower leg erythematous rash bid x [address] [facility] [phone] Discharge Disposition: TRANSFER TO SNF/ECF
--- NOTE | 2018-06-14 14:22 | PN ---
PROGRESS NOTE DATE OF SERVICE: 06/14/2018 REASON FOR FOLLOWUP: Left leg wound with secondary cellulitis. INTERVAL HISTORY: The patient is currently afebrile. She is breathing comfortably. Denies having any chest pain, abdominal pain, no diarrhea and no pain to the left leg area. PHYSICAL EXAMINATION: Blood pressure 130/60 with a pulse of 60, temperature 97.7, she is 96% on room air. General description is an elderly female, lying in bed in no distress. RESPIRATORY SYSTEM: Unlabored breathing, clear to auscultation anteriorly. HEART: S1, S2. Regular rate and rhythm. ABDOMEN: Soft, no tenderness. Left leg wound no significant drainage was noticed. He did have a leg erythematous tissue on the dorsum of the foot and the anterior leg. LABS: White count 5.7. Wound culture has been negative. DIAGNOSTIC IMPRESSION AND PLAN: 1. Patient with left leg wound with secondary cellulitis, culture has been negative for resistant pathogen. She will be given a short course of oral doxycycline. Local wound care will be continued with Santyl followed by moist dressing. 2. Patient with erythematous ridges to the leg area. Will apply Mycolog cream twice a day and close outpatient followup. MMODL / IJN: [id number] /
== END 2018-06-14 14:35 | DRG 603 ==
LOC: EC 14:17 → 5MS5E 19:10
PROVIDERS: ADMIT Hospitalist; ATTEND Hospitalist
DX: L03.116 Cellulitis of left lower limb (principal); L97.329 Non-pressure chronic ulcer of left ankle with unspecified severity; I82.512 Chronic embolism and thrombosis of left femoral vein; L97.529 Non-pressure chronic ulcer of other part of left foot with unspecified severity; I83.023 Varicose veins of left lower extremity with ulcer of ankle; I25.10 Atherosclerotic heart disease of native coronary artery without angina pectoris; K62.3 Rectal prolapse; M19.91 Primary osteoarthritis, unspecified site; R32 Unspecified urinary incontinence; Z79.82 Long term (current) use of aspirin; Z79.899 Other long term (current) drug therapy; Z87.01 Personal history of pneumonia (recurrent); Z86.14 Personal history of Methicillin resistant Staphylococcus aureus infection; Z87.39 Personal history of other diseases of the musculoskeletal system and connective tissue; Z90.710 Acquired absence of both cervix and uterus; Z89.511 Acquired absence of right leg below knee; Z87.891 Personal history of nicotine dependence; Z99.3 Dependence on wheelchair; Z98.42 Cataract extraction status, left eye; Z98.41 Cataract extraction status, right eye; Z96.1 Presence of intraocular lens; Z86.79 Personal history of other diseases of the circulatory system; Z80.0 Family history of malignant neoplasm of digestive organs; Z82.49 Family history of ischemic heart disease and other diseases of the circulatory system
CPT/HCPCS: 36415; 80048; 80053; 80202; 85025; 85379; 87040; 87070; 87075; 87205; 93970; 96365; 96366; 99284

== ENCOUNTER 2018-08-17 13:22 | Inpatient (IN) | payer MEDICARE, OTHER ==
--- NOTE | 2018-08-17 14:52 | ED ---
Wound/Laceration HPI - General Chief Complaint: Wound/Laceration Stated Complaint: wound infection Time Seen by Provider: 08/17/18 14:33 Source: patient, RN notes reviewed Mode of arrival: wheelchair Limitations: no limitations - History of Present Illness Initial Comments: 83-year-old female presents to the emergency Department chief complaint of left leg infection. Patient has been on clindamycin outpatient symptoms are worsening since Tuesday. They have noticed increased drainage, open sores. Patient has had prior right leg amputation secondary to infection. Patient is not diabetic. Patient was evaluated by visiting physicians today and sent emergency Department for admission. Patient reports no fevers or chills. Patient complains of mild discomfort to the area. Patient has NO KNOWN DRUG ALLERGIES. Patient offers no complaints. - Related Data Home Medications Medication Instructions Recorded Confirmed Multivit-Min/Iron/Folic/Lutein 1 tab PO DAILY 01/20/17 08/17/18 [Centrum Silver Women Tablet] Furosemide [Lasix] 20 mg PO DAILY 01/31/18 08/17/18 Loratadine [Claritin] 10 mg PO DAILY PRN 01/31/18 08/17/18 Grapefruit Seed Extract 125 mg PO BID 07/17/18 08/17/18 Aspirin EC [Ecotrin] 325 mg PO DAILY 08/17/18 08/17/18 Gabapentin [Neurontin] 300 mg PO HS 08/17/18 08/17/18 HYDROcodone/APAP 5-325MG [Iraan 1 tab PO DAILY PRN 08/17/18 08/17/18 5-325] Allergies Allergy/AdvReac Type Severity Reaction Status Date / Time No Known Allergies Allergy Verified 08/17/18 14:42 Review of Systems ROS Statement: Those systems with pertinent positive or pertinent negative responses have been documented in the HPI. ROS Other: All systems not noted in ROS Statement are negative. Past Medical History Past Medical History: Osteoarthritis (OA), Pneumonia Additional Past Medical History / Comment(s): BKA right leg History of Any Multi-Drug Resistant Organisms: MRSA Date of last positivie culture/infection: 01/31/18 MDRO Source:: left ankle Past Surgical History: Hysterectomy, Tonsillectomy Additional Past Surgical History / Comment(s): kaci cataract removal with lens implant, picc line insertion since removed, colonoscopy/polyps removed-benign, numerous lower leg/foot debridements. amputation below rt knee, pt stated in past took meds for her thyroid but no longer on anything Past Anesthesia/Blood Transfusion Reactions: No Reported Reaction Past Psychological History: No Psychological Hx Reported Smoking Status: Former smoker Past Alcohol Use History: None Reported Past Drug Use History: None Reported - Past Family History Son(s) History Unknown: Yes Mother History Unknown: Yes Family Medical History: Cancer Additional Family Medical History / Comment(s): Mother had stomach cancer. Father Family Medical History: Congestive Heart Failure (CHF) General Exam Limitations: no limitations General appearance: alert, in no apparent distress Head exam: Present: atraumatic, normocephalic, normal inspection Respiratory exam: Present: normal lung sounds bilaterally. Absent: respiratory distress, wheezes, rales, rhonchi, stridor Cardiovascular Exam: Present: regular rate, normal rhythm, normal heart sounds. Absent: systolic murmur, diastolic murmur, rubs, gallop, clicks Extremities exam: Present: other (Right leg BKA noted, left leg or open sores with purulent drainage, foul order, erythema to the mid lower leg, pedal pulses noted) Skin exam: Present: warm, dry Course Vital Signs 08/17/18 13:39 Temperature 98.4 F Pulse Rate 81 Respiratory 18 Rate Blood Pressure 117/59 O2 Sat by Pulse 98 Oximetry Medical Decision Making - Medical Decision Making 83-year-old female presented for left leg, foot infection. Patient's fell outpatient treatment will be admitted for IV antibiotics. Disposition Clinical Impression: Cellulitis of leg, left, Wound of left leg, Failure of outpatient treatment Disposition: ADMITTED IP TO THIS HOSP Condition: Fair Referrals: Jose Reese MD [Primary Care Provider] - 1-2 days
--- NOTE | 2018-08-17 15:10 | XR ---
EXAMINATION TYPE: XR ankle complete LT DATE OF EXAM: 08/17/2018 CLINICAL HISTORY: Left ankle infection. TECHNIQUE: Frontal, lateral and oblique images of the left ankle are obtained. COMPARISON: Left ankle x-ray January 31, 2018 FINDINGS: Demineralization is present. There is mild to moderate soft tissue swelling over lateral ma lleolus that remains present. No suspicious cortical destruction or periosteal reaction is seen. No a cute fracture or dislocation is evident. Ankle mortise symmetry is preserved. IMPRESSION: As above.
[2018-08-17] MEDS ORDERED: VANCOMYCIN IV PER PHARMACY 1 EACH MISC MISCELLANE PRN (15:54)
[2018-08-17] MEDS ORDERED: ACETAMINOPHEN TAB 325 MG TAB PO PRN (15:55)
[2018-08-17] MEDS ORDERED: HYDROcodone/APAP 5-325MG 1 EACH TAB PO PRN (15:55)
[2018-08-17] MEDS ORDERED: VANCOMYCIN 1,000 MG in SODIUM CHLORIDE 0.9% 250 ML IVPB STA (15:57)
[2018-08-17 16:01] LABS: Basophils % (A) 1 %; Eosinophils # (A) 0.4 k/uL (0-0.7); Eosinophils % (A) 5 %; HCT 37.2 % (34.0-46.0); HGB 12.1 gm/dL (11.4-16.0); Lymphocytes # (A) 1.5 k/uL (1.0-4.8); Lymphocytes % (A) 21 %; MCH 29.6 pg (25.0-35.0); MCHC 32.5 g/dL (31.0-37.0); Mean Platelet Volume 7.6; Monocytes # (A) 0.5 k/uL (0-1.0); Monocytes % (A) 7 %; Neutrophils # (A) 4.6 k/uL (1.3-7.7); Neutrophils % (A) 65 %; Platelet Count 369 k/uL (150-450); RBC 4.08 m/uL (3.80-5.40); RDW 14.7 % (11.5-15.5)
[2018-08-17 16:15] LABS: Partial Thromboplastin Time 22.7 sec (22.0-30.0); Prothrombin Time 9.8 sec (9.0-12.0)
[2018-08-17 16:23] LABS: ALT 18 U/L (9-52); AST 27 U/L (14-36); Albumin 3.3 g/dL (3.5-5.0); Alkaline Phosphatase 50 U/L (38-126); Anion Gap 7 mmol/L; Blood Urea Nitrogen 29 mg/dL (7-17); C Reactive Protein 19.4 mg/L (<10.0); Calcium 8.6 mg/dL (8.4-10.2); Carbon Dioxide 27 mmol/L (22-30); Chloride 107 mmol/L (98-107); Glucose 87 mg/dL (74-99); Sodium 141 mmol/L (137-145); Total Bilirubin 0.3 mg/dL (0.2-1.3); Total Protein 6.6 g/dL (6.3-8.2)
[2018-08-17 18:29] VITALS: BMI 22.8
[2018-08-17] MEDS: GABAPENTIN 300 MG CAP PO SCH (22:52)
[2018-08-18] MEDS ORDERED: LORATADINE 10 MG TAB PO PRN (01:20)
[2018-08-18] MEDS ORDERED: MELATONIN 3 MG TABLET PO PRN (01:21)
[2018-08-18] MEDS ORDERED: ALPRAZolam 0.25 MG TAB PO PRN (01:21)
[2018-08-18] MEDS: VANCOMYCIN 750 MG in SODIUM CHLORIDE 0.9% 250 ML IVPB SCH ×2 (05:58→18:59)
[2018-08-18 07:27] LABS: Glucose,Whole Blood 73 mg/dL (75-99)
[2018-08-18] MEDS ORDERED: NON-FORMULARY DRUG (Multivit-Min/Iron/Folic/Lutein [Centrum Silver Women Tablet] 1 TAB) PO SCH (09:00)
[2018-08-18] MEDS: HEPARIN SODIUM,PORCINE 5,000 UNIT/ML 1 ML VIAL SQ SCH ×2 (09:52→21:28)
[2018-08-18] MEDS: ASPIRIN 325 MG TAB PO SCH (09:52)
[2018-08-18] MEDS: PANTOPRAZOLE 40 MG TABLET PO SCH (09:52)
[2018-08-18] MEDS: FUROSEMIDE 20 MG TAB PO SCH (09:52)
--- NOTE | 2018-08-18 10:15 | HP ---
HISTORY AND PHYSICAL DATE OF SERVICE: 08/17/2018 CHIEF COMPLAINT: Pain and swelling of the left leg. HISTORY OF PRESENT ILLNESS: This 83-year-old woman with a past medical history of multiple medical problems including history of DJD, history of pneumonia, BKA of the right leg being followed by Visiting Physician, Dr. Reese in the outpatient setting noted to have pain and swelling of the left leg since several days. Patient is on outpatient clindamycin with lack of improvement. The patient came to [facility] and admitted for further evaluation. Patient notes an open sore on the lateral side also. There is no history of fever, rigors or chills. PAST MEDICAL HISTORY: History of DJD, history of BKA right leg, history of MRSA. MEDICATIONS: Medications are: 1. Ecotrin 325 mg daily. 2. [place]field 1 tablet daily p.r.n. 3. Neurontin 300 mg q.h.s. 4. Multivitamins 1 p.o. daily. 5. Claritin 10 mg daily. 6. Grapefruit 125 mg b.i.d. 7. Lasix 20 mg daily. ALLERGIES: Allergies are none FAMILY HISTORY: History of cancer in the mother. SOCIAL HISTORY: No history of current smoking, previous history smoking. No history of alcohol intake. REVIEW OF SYSTEMS: ENT: No diminished hearing or diminished vision. CARDIOVASCULAR SYSTEM: No angina. RESPIRATORY SYSTEM: No cough or hemoptysis. GI: No nausea. : No dysuria. NERVOUS SYSTEM: No numbness or weakness. ALLERGY/IMMUNOLOGY: No asthma or hayfever. MUSCULOSKELETAL: As mentioned earlier. HEMATOLOGY/ONCOLOGY: No history anemia. ENDOCRINE: No history of diabetes or hypothyroidism. CONSTITUTIONAL: As mentioned earlier. DERMATOLOGY: As mentioned earlier. RHEUMATOLOGY: Negative. PSYCHIATRY: As mentioned earlier. PHYSICAL EXAMINATION: The patient is alert and oriented x3. Pulse 78, blood pressure 116/51, respiration 16, temperature 99.2, pulse ox 94% on room air. HEENT: Conjunctivae normal. Oral mucosa moist. Neck is no jugular venous distention. No carotid bruit. No lymph node enlargement. CARDIOVASCULAR: S1 and S2 muffled. RESPIRATORY: Breath sounds diminished at the base. No rhonchi, no crackles. ABDOMEN: Soft, nontender. No mass palpable. LEGS: Left leg significant erythema and tenderness and lateral ulcer on the lateral also present, tender. Pulses are diminished . NERVOUS SYSTEM: Higher functions as mentioned earlier. Moves all 4 limbs. No focal motor deficits. LYMPHATICS: No lymphadenopathy of the neck, axillae or groin. SKIN: No ulcer, rash or bleeding. LABS: CBC within normal limits and otherwise BUN is 29. ASSESSMENT: 1. Left leg ulcer, possibly venous ulcer with cellulitis and failure of outpatient treatment. 2. Degenerative joint disease. 3. History of pneumonia. 4. History of right leg below knee amputation. 5. History of methicillin-resistant Staphylococcus aureus. RECOMMENDATIONS AND DISCUSSION: This 83-year-old woman presented with multiple complex medical issues, we will monitor the patient closely. Continue the current medications. Continue symptomatic treatment. Will initiate broad-spectrum IV antibiotics. I would recommend continue the vancomycin, infectious disease evaluation and guarded prognosis because of multiple complex medical issues. Will initiate the home medications and DVT prophylaxis and symptomatic treatment of the pain. See orders for further details. Further recommendations to follow. MMODL / IJN: [id number] / MTDD
--- NOTE | 2018-08-18 14:41 | P.GSCN ---
History of Present Illness Consult date: 08/18/18 Reason for Consult: Rectal prolapse History of present illness: 83-year-old thin frail female being seen at the request of the attending for rectal prolapse. Patient states "god tells it to go in and out patient states has had a rectal prolapse for 10-15 years can easily be pushed back in per patient report. Patient has a large rectal prolapse approximately at least 6 inches protruding is red beefy protruding out of the rectum. Patient has a physician who comes to the home. Patient initially presented to the emergency room with a chief complaint of developing left wound infection.. Patient was on clindamycin in the outpatient setting and not gotten any better currently is being followed by infectious disease . Patient apparently was evaluated by the visiting physicians and referred to the emergency room for admission. 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 The left lower leg open sore with. Drainage foul odor redness noted to the mid lower leg right BKA no redness noted currently patient denies any abdominal pain or pain in the vagina or rectum when questioning no fever chills no shortness of breath no chest pain no dizziness or lightheadedness when questioning Review of Systems Essentially unremarkable except as mentioned in the present illness Past Medical History Past Medical History: Osteoarthritis (OA), Pneumonia Additional Past Medical History / Comment(s): BKA right leg History of Any Multi-Drug Resistant Organisms: MRSA Year Discovered:: 01/31/18 MDRO Source:: left ankle Past Surgical History: Hysterectomy, Tonsillectomy Additional Past Surgical History / Comment(s): kaci cataract removal with lens implant, picc line insertion since removed, colonoscopy/polyps removed-benign, numerous lower leg/foot debridements. amputation below rt knee, pt stated in past took meds for her thyroid but no longer on anything Past Anesthesia/Blood Transfusion Reactions: No Reported Reaction Past Psychological History: No Psychological Hx Reported Additional Psychological History / Comment(s): pt stated she lives at home and had [facility] home care nurse and pt. pt uses a w/c , has a leg prothesis Smoking Status: Former smoker Past Alcohol Use History: None Reported Additional Past Alcohol Use History / Comment(s): started smoking at age 12 and quit smoking in 2002, smoked 1 ppd Past Drug Use History: None Reported - Past Family History Son(s) History Unknown: Yes Mother History Unknown: Yes Family Medical History: Cancer Additional Family Medical History / Comment(s): Mother had stomach cancer. Father Family Medical History: Congestive Heart Failure (CHF) Medications and Allergies Home Medications Medication Instructions Recorded Confirmed Type Multivit-Min/Iron/Folic/Lutein 1 tab PO DAILY 01/20/17 08/17/18 History [Centrum Silver Women Tablet] Furosemide [Lasix] 20 mg PO DAILY 01/31/18 08/17/18 History Loratadine [Claritin] 10 mg PO DAILY PRN 01/31/18 08/17/18 History Grapefruit Seed Extract 125 mg PO BID 07/17/18 08/17/18 History Aspirin EC [Ecotrin] 325 mg PO DAILY 08/17/18 08/17/18 History Gabapentin [Neurontin] 300 mg PO HS 08/17/18 08/17/18 History HYDROcodone/APAP 5-325MG [[place] 1 tab PO DAILY PRN 08/17/18 08/17/18 History 5-325] Allergies Allergy/AdvReac Type Severity Reaction Status Date / Time No Known Allergies Allergy Verified 08/17/18 14:42 Surgical - Exam Vital Signs Temp Pulse Resp BP Pulse Ox 98.4 F 81 18 117/59 98 08/17/18 13:39 08/17/18 13:39 08/17/18 13:39 08/17/18 13:39 08/17/18 13:39 GENERAL APPEARANCE: Thin frail female patient is alert, oriented to self and place, in no acute distress. VITAL SIGNS: Reviewed HEENT: Head is normocephalic and atraumatic. Pupils are equal and reactive. The nares are patent. Oropharynx is clear without lesions. NECK: Supple without lymphadenopathy. Traches midline. HEART: S1, S2. Regular rate and rhythm. No murmur noted denying chest pain LUNGS: No crackles or wheezes are heard. No shortness of breath ABDOMEN: Soft, nontender, nondistended with good bowel sounds. No peritoneal signs. No palpable organomegaly or masses. EXTREMITIES: Right leg amputation left lower extremity lateral open ulcer noted purulent drainage with odor mild redness to the mid lower leg Rectum large prolapse approximate 6-7 inches protruding from rectum Results - Labs 08/17/18 15:40 08/17/18 15:40 Abnormal Lab Results - Last 24 Hours (Table) 08/17/18 08/18/18 Range/Units 15:40 07:13 BUN 29 H (7-17) mg/dL POC Glucose (mg/dL) 73 L (75-99) mg/dL C-Reactive Protein 19.4 H (<10.0) mg/L Albumin 3.3 L (3.5-5.0) g/dL Microbiology - Last 24 Hours (Table) 08/18/18 00:15 Gram Stain - Preliminary Ankle - Left Wound Culture - Preliminary 08/18/18 00:15 Anaerobic Culture - Preliminary Ankle - Left Diabetes panel 08/17/18 Range/Units 15:40 Sodium 141 (137-145) mmol/L Potassium 4.0 (3.5-5.1) mmol/L Chloride 107 (98-107) mmol/L Carbon Dioxide 27 (22-30) mmol/L BUN 29 H (7-17) mg/dL Creatinine 0.72 (0.52-1.04) mg/dL Glucose 87 (74-99) mg/dL Calcium 8.6 (8.4-10.2) mg/dL AST 27 (14-36) U/L ALT 18 (9-52) U/L Alkaline Phosphatase 50 (38-126) U/L Total Protein 6.6 (6.3-8.2) g/dL Albumin 3.3 L (3.5-5.0) g/dL Calcium panel 08/17/18 Range/Units 15:40 Calcium 8.6 (8.4-10.2) mg/dL Albumin 3.3 L (3.5-5.0) g/dL Pituitary panel 08/17/18 Range/Units 15:40 Sodium 141 (137-145) mmol/L Potassium 4.0 (3.5-5.1) mmol/L Chloride 107 (98-107) mmol/L Carbon Dioxide 27 (22-30) mmol/L BUN 29 H (7-17) mg/dL Creatinine 0.72 (0.52-1.04) mg/dL Glucose 87 (74-99) mg/dL Calcium 8.6 (8.4-10.2) mg/dL Adrenal panel 08/17/18 Range/Units 15:40 Sodium 141 (137-145) mmol/L Potassium 4.0 (3.5-5.1) mmol/L Chloride 107 (98-107) mmol/L Carbon Dioxide 27 (22-30) mmol/L BUN 29 H (7-17) mg/dL Creatinine 0.72 (0.52-1.04) mg/dL Glucose 87 (74-99) mg/dL Calcium 8.6 (8.4-10.2) mg/dL Total Bilirubin 0.3 (0.2-1.3) mg/dL AST 27 (14-36) U/L ALT 18 (9-52) U/L Alkaline Phosphatase 50 (38-126) U/L Total Protein 6.6 (6.3-8.2) g/dL Albumin 3.3 L (3.5-5.0) g/dL Assessment and Plan Assessment: Impression Present on admission rectal prolapse Right BKA Present on admission nonhealing ulcer to the left lower extremity failed outpatient treatment History of prior MRSA Degenerative joint disease Peripheral vascular disease suspected Left leg nonhealing ulcer possible venous ulcer with cellulitis failed outpatient treatment chronic ulcer left lower extremity followed by the wound care center seen in May 2018 measured 9x 4 x .1 Plan We'll discuss with the attending surgical approach to addressing the rectal prolapse No CODE STATUS noted DVT and GI prophylaxis Follow-up on the abdominal x-ray pending Will follow with you Surgical consultation note dictated for dr nur The above impression and plan of care have been discussed and directed by signing physician. Shabnam Quintero nurse practitioner acting as scribe for signing physician.
--- NOTE | 2018-08-18 15:42 | XR ---
EXAMINATION TYPE: XR abdomen 2V DATE OF EXAM: 08/18/2018 COMPARISON: None INDICATION: Rule out bowel obstruction. No history is provided TECHNIQUE: 2 view abdomen upright view and supine view FINDINGS: There is a normal bowel gas pattern. Fecal debris is within the colon. No suspicious air-fluid levels are differential air-fluid levels. No free air is evident. This are calcifications within the aorta . Psoas margins are normal. No organomegaly is present. Scoliosis in the lumbar spine. IMPRESSION: 1. Nonspecific abdomen.
[2018-08-18 17:39] LABS: Appearance,Urine Clear (Clear); Bilirubin,Urine Negative (Negative); Blood,Urine Negative (Negative); Color,Urine Light Yellow; Glucose,Urine (UA) Negative (Negative); Ketones,Urine Negative (Negative); Leukocyte Esterase,Urine Negative (Negative); Nitrite,Urine Negative (Negative); Protein,Urine Negative (Negative); Specific Gravity,Urine 1.008 (1.001-1.035); Urobilinogen,Urine <2.0 mg/dL (<2.0)
[2018-08-18] MEDS: GABAPENTIN 300 MG CAP PO SCH (21:28)
[2018-08-19] MEDS ORDERED: VANCOMYCIN TROUGH DUE 1 EACH MISC MISCELLANE ONE (05:00)
[2018-08-19] MEDS: VANCOMYCIN 750 MG in SODIUM CHLORIDE 0.9% 250 ML IVPB SCH ×2 (06:17→17:18)
[2018-08-19 06:22] LABS: Basophils % (A) 1 %; Eosinophils # (A) 0.6 k/uL (0-0.7); Eosinophils % (A) 9 %; Lymphocytes # (A) 1.6 k/uL (1.0-4.8); Lymphocytes % (A) 26 %; MCH 30.1 pg (25.0-35.0); MCHC 32.3 g/dL (31.0-37.0); MCV 93.4 fL (80.0-100.0); Mean Platelet Volume 6.7; Monocytes # (A) 0.4 k/uL (0-1.0); Monocytes % (A) 7 %; Neutrophils # (A) 3.4 k/uL (1.3-7.7); Neutrophils % (A) 55 %; Platelet Count 346 k/uL (150-450); RBC 3.64 m/uL (3.80-5.40); RDW 14.8 % (11.5-15.5); WBC 6.2 k/uL (3.8-10.6)
[2018-08-19 06:41] LABS: Anion Gap 4 mmol/L; Blood Urea Nitrogen 20 mg/dL (7-17); Calcium 8.5 mg/dL (8.4-10.2); Carbon Dioxide 24 mmol/L (22-30); Chloride 113 mmol/L (98-107); Glucose 70 mg/dL (74-99); Potassium 4.4 mmol/L (3.5-5.1); Sodium 141 mmol/L (137-145)
[2018-08-19 07:29] LABS: Glucose,Whole Blood 85 mg/dL (75-99)
[2018-08-19 07:29] LABS: Glucose,Whole Blood 60 mg/dL (75-99)
[2018-08-19] MEDS: ASPIRIN 325 MG TAB PO SCH (08:30)
[2018-08-19] MEDS: FUROSEMIDE 20 MG TAB PO SCH (08:30)
[2018-08-19] MEDS: HEPARIN SODIUM,PORCINE 5,000 UNIT/ML 1 ML VIAL SQ SCH ×2 (08:30→20:47)
[2018-08-19] MEDS: PANTOPRAZOLE 40 MG TABLET PO SCH (08:30)
--- NOTE | 2018-08-19 09:17 | P.PN ---
Progress Note - Text Progress Note Date: 08/19/18 The patient has a known history of rectal prolapse. She states that she does not wish to have this repaired. On exam her abdomen soft nontender. Rectal prolapse. Patient states that she does not wish to have this repaired. We will respect her wishes and follow as needed.
--- NOTE | 2018-08-19 09:31 | CONS ---
CONSULTATION DATE OF SERVICE: 08/18/2018. REASON FOR CONSULTATION: Left leg wound and cellulitis. HISTORY OF PRESENT ILLNESS: The patient is an 83-year-old female with a past medical history significant for a venostasis ulcer to the left leg with secondary cellulitis for which the patient has been previously admitted at this facility. The patient has now been brought to the hospital after apparently the patient did have worsening of swelling and redness of her left leg. This has been treated in the outpatient setting with clindamycin without any improvement since Tuesday. The patient noticed to have increased drainage from the left leg wound with increased swelling and redness. The patient did have a dull aching pain to the left leg with intensity about 3 to 4/10, and no radiation. The patient did have some chills but denies having fever. She was evaluated by the Visiting Physician and subsequently advised the patient to go to the hospital. The patient was evaluated by the ER physician. Blood culture has been obtained which is currently pending. She has been treated with vancomycin and Infectious Disease was consulted for further recommendation regarding antibiotic therapy. The patient did have x-rays of the ankle area, which show moderate soft tissue swelling over the lateral malleolus that remains present. No suspicious cortical destruction or periosteal seen. REVIEW OF SYSTEMS: CONSTITUTIONAL: Positive for weakness. No high-grade fever. EYES: No complaint. ENT: No complaint. RESPIRATORY: No complaint. CARDIOVASCULAR: No complaint. GENITOURINARY: No complaint. GASTROINTESTINAL: No complaint. MUSCULOSKELETAL: No complaint. INTEGUMENTARY: As per HPI. PSYCHOLOGICAL: No complaint. ENDOCRINE: No complaint. NEUROLOGICAL: No complaint. 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 PAST SURGICAL HISTORY: Right below the knee amputation, debridement of the right leg, hysterectomy, has a debridement of the left leg wound. SOCIAL HISTORY: Denies smoking, drinking or drug use. FAMILY HISTORY: No pertinent findings noticed. ALLERGIES: No known drug allergies. MEDICATION: Currently include the patient is on Tylenol, [place], Xanax, aspirin, Lasix, Neurontin, heparin, Claritin, vancomycin pharmacy to dose. PHYSICAL EXAMINATION: Her blood pressure is 117/61 with a pulse of 70. Temperature 97.2. She is 93% on room air. General description is an elderly female up in the bed in no distress. No tachypnea or accessory muscle of respiration use. HEENT: Shows no pallor or scleral icterus. Oral mucous membranes dry. No pharyngeal erythema or thrush. NECK: Trachea central. No thyromegaly. LUNGS: Unlabored breathing. Clear to auscultation anteriorly. No wheeze or crackle. HEART: S1, S2. Regular rate and rhythm. ABDOMEN: Soft, no tenderness. Left lateral leg did have a superficial wound and did have slough tissue at the base of the wound with surrounding cellulitis that is extending all the way to the mid lower leg area, which is warm and tender to touch, but no foul smelling drainage. NEUROLOGICAL: The patient is awake, alert, oriented. Mood and affect normal. LABS: Hemoglobin is 12.1, white count 7.0 with a BUN of 29, creatinine 0.72. Electrolytes have been normal. Liver enzymes are normal. Urine is negative. Blood culture obtained, currently pending. Chest x-rays of the leg as mentioned above. DIAGNOSTIC IMPRESSION AND PLAN: Patient with left leg wound, likely venostasis with secondary cellulitis. Likely need to cover for the gram-positive skin marcus in a the patient did have a history of recurrent cellulitis and previous infection with both MRSA and Pseudomonas aeruginosa. Local wound cultures obtained to guide antibiotic therapy. PLAN: 1. Vancomycin pharmacy to dose with target of 15. 2. Local wound care with Medihoney followed by moist dressing to be changed daily. 3. Vancomycin pharmacy to dose target trough of 15 while watching the kidney function and Vanco trough closely. 4. We will follow up on clinical condition and culture to further adjust medication if needed. Thank you for this consultation. Will follow this patient along with you. MMODL / IJN: [id number] /
--- NOTE | 2018-08-19 13:37 | P.PN ---
Subjective Progress Note Date: 08/19/18 Principal diagnosis: left leg cellulitis Mr. Call is an 83-year-old female with a past medical history of degenerative joint disease, right BKA, history of MRSA coming to the hospital with a chief complaint of left lower extremity pain and swelling. Patient was treated with clindamycin outpatient but did not show much improvement and so admitted here for further evaluation and management. Patient today sitting up in a chair by the bedside appears to be no acute distress. On review of systems- constitutional-Denies having any fevers chills or rigors Respiratory-no cough or difficulty in breathing Cardiovascular-no chest pain or palpitations GI-no abdominal pain nausea vomiting or diarrhea -no dysuria or hematuria Patient states that the redness and pain of her left lower extremity did improve compared to when she came into the hospital. Objective - Vital Signs Vital signs: Vital Signs Temp 96.2 F L 08/19/18 06:09 Pulse 63 08/19/18 06:09 Resp 17 08/19/18 06:09 BP 116/56 08/19/18 06:09 Pulse Ox 93 L 08/19/18 06:09 Intake & Output 08/18/18 08/19/18 08/19/18 18:59 06:59 18:59 Intake Total 250 Balance 250 Weight 53 kg Intake: Oral 250 Other: Voiding Method Bedpan Bedpan # Voids 2 1 # Bowel Movements 1 - Exam GENERAL EXAM GEN. APPEARANCE: alert, in no apparent distress HEAD EXAM: atraumatic, normocephalic, normal inspection EYE EXAM: normal appearance, PERRL, EOMI. Absent: scleral icterus, conjunctival injection, periorbital swelling ENT EXAM: normal exam, mucous membranes moist NECK EXAM: normal inspection. Absent: tenderness, meningismus, full ROM, lymphadenopathy RESPIRATORY EXAM: normal lung sounds bilaterally. Absent: respiratory distress , wheezes, rales, rhonchi, stridor CARDIOVASCULAR EXAM: regular rate, normal rhythm, normal heart sounds. Absent : systolic murmur, diastolic murmur, rubs, gallop, clicks GI/ABDOMINAL EXAM: soft, normal bowel sounds. Absent: distended, tenderness, guarding, rebound, rigid EXTREMITIES EXAM: right BKA, Left LE - redeness and skin peeling of upto mid reich region. BACK EXAM: normal inspection NEUROLOGICAL EXAM: alert, oriented X3, CN II-XII intact, motor sensory deficit PSYCHIATRIC EXAM: normal affect, normal mood - Labs CBC & Chem 7: 08/19/18 05:57 08/19/18 05:57 Labs: Abnormal Lab Results - Last 24 Hours (Table) 08/19/18 08/19/18 08/19/18 Range/Units 05:57 05:57 07:14 RBC 3.64 L (3.80-5.40) m/uL Hgb 11.0 L (11.4-16.0) gm/dL Chloride 113 H (98-107) mmol/L BUN 20 H (7-17) mg/dL Glucose 70 L (74-99) mg/dL POC Glucose (mg/dL) 60 L (75-99) mg/dL Microbiology - Last 24 Hours (Table) 08/18/18 13:20 Gram Stain - Preliminary Ankle - Left Wound Culture - Preliminary Gram Neg Bacilli Gram Neg Bacilli#2 08/18/18 00:15 Gram Stain - Preliminary Ankle - Left Wound Culture - Preliminary Gram Neg Bacilli 08/17/18 15:40 Blood Culture - Preliminary Blood No Growth after 24 hours 08/18/18 00:15 Anaerobic Culture - Preliminary Ankle - Left Assessment and Plan Assessment: ASSESSMENT Left lower extremity cellulitis failed outpatient treatment Degenerative joint disease History of MRSA History of right leg [id number] amputation Plan: Patient has been started on IV antibiotics vancomycin and showed significant improvement. we will can do any other antibiotics as per MP Jiménez's recommendations. Further recommendations to follow depending on the progress of the patient. Patient is DO NOT RESUSCITATE.
[2018-08-19] MEDS: GABAPENTIN 300 MG CAP PO SCH (20:47)
[2018-08-20] MEDS: VANCOMYCIN 750 MG in SODIUM CHLORIDE 0.9% 250 ML IVPB SCH (05:28)
[2018-08-20 07:14] LABS: Basophils % (A) 0 %; Eosinophils # (A) 0.4 k/uL (0-0.7); Eosinophils % (A) 7 %; HCT 35.5 % (34.0-46.0); HGB 11.3 gm/dL (11.4-16.0); Lymphocytes # (A) 1.4 k/uL (1.0-4.8); Lymphocytes % (A) 21 %; MCH 29.4 pg (25.0-35.0); MCHC 31.8 g/dL (31.0-37.0); MCV 92.5 fL (80.0-100.0); Mean Platelet Volume 7.3; Monocytes # (A) 0.4 k/uL (0-1.0); Monocytes % (A) 6 %; Neutrophils # (A) 4.4 k/uL (1.3-7.7); Neutrophils % (A) 65 %; Platelet Count 386 k/uL (150-450); RBC 3.84 m/uL (3.80-5.40); RDW 14.8 % (11.5-15.5); WBC 6.7 k/uL (3.8-10.6)
[2018-08-20 07:22] LABS: Anion Gap 6 mmol/L; Blood Urea Nitrogen 19 mg/dL (7-17); Calcium 8.7 mg/dL (8.4-10.2); Carbon Dioxide 26 mmol/L (22-30); Chloride 112 mmol/L (98-107); Glucose 77 mg/dL (74-99); Potassium 4.6 mmol/L (3.5-5.1); Sodium 144 mmol/L (137-145)
--- NOTE | 2018-08-20 07:56 | PN ---
PROGRESS NOTE DATE OF SERVICE: 08/19/2018. REASON FOR FOLLOWUP: Left leg venostasis ulcer with secondary cellulitis. INTERVAL HISTORY: The patient is currently afebrile. She is breathing comfortably. Denies having any chest pain, shortness of breath or cough. She denies any worsening pain to the left leg area. Minimal drainage. No diarrhea. EXAMINATION: Blood pressure 130/57 with a pulse of 77. Temperature 96.5. She is 98% on room air. General description is an elderly female lying in bed in no distress. RESPIRATORY SYSTEM: Unlabored breathing. Clear to auscultation anteriorly. HEART: S1, S2. Regular rate and rhythm. ABDOMEN: Soft, no tenderness. Left leg wound is currently dressed up. No obvious drainage on the dressing. LABS: BUN of 20, creatinine of 0.64, white count 6.2. Wound culture currently showed a gram- negative bacilli. DIAGNOSTIC IMPRESSION AND PLAN: Patient with left lateral ankle venostasis ulcer with secondary cellulitis. Culture now positive for gram-negative. We will add Fortaz 2 g q.12h while waiting for the culture to finalize. Continue supportive care. MMODL / IJN: [id number] /
[2018-08-20] MEDS: HEPARIN SODIUM,PORCINE 5,000 UNIT/ML 1 ML VIAL SQ SCH ×2 (08:13→23:20)
[2018-08-20] MEDS: FUROSEMIDE 20 MG TAB PO SCH (08:13)
[2018-08-20] MEDS: ASPIRIN 325 MG TAB PO SCH (08:13)
[2018-08-20] MEDS: PANTOPRAZOLE 40 MG TABLET PO SCH (08:14)
--- NOTE | 2018-08-20 16:48 | P.PN ---
Subjective Progress Note Date: 08/20/18 Principal diagnosis: Left leg cellulitis Mr. Call is an 83-year-old female with a past medical history of degenerative joint disease, right BKA, history of MRSA coming to the hospital with a chief complaint of left lower extremity pain and swelling. Patient was treated with clindamycin outpatient but did not show much improvement and so admitted here for further evaluation and management. On 08/20/18 - Patient sitting up in a chair by the bedside appears to be no acute distress. On review of systems- Constitutional-Denies having any fevers chills or rigors Respiratory-no cough or difficulty in breathing Cardiovascular-no chest pain or palpitations GI-no abdominal pain nausea vomiting or diarrhea -no dysuria or hematuria Patient states that the redness and pain of her left lower extremity did improve compared to when she came into the hospital. Objective - Vital Signs Vital signs: Vital Signs Temp 96.1 F L 08/20/18 06:05 Pulse 68 08/20/18 08:00 Resp 17 08/20/18 08:00 BP 144/65 08/20/18 06:05 Pulse Ox 96 08/20/18 06:05 Intake & Output 08/19/18 08/20/18 08/20/18 18:59 06:59 18:59 Intake Total 850 Balance 850 Weight 53 kg Intake: Oral 850 Other: Voiding Method Bedpan Bedpan # Voids 4 3 # Bowel Movements 1 - Exam GEN. APPEARANCE: alert, in no apparent distress HEAD EXAM: atraumatic, normocephalic, normal inspection EYE EXAM: No pallor or icterus ENT EXAM: normal exam, mucous membranes moist RESPIRATORY EXAM: normal lung sounds bilaterally. Absent: respiratory distress , wheezes, rales, rhonchi, stridor CARDIOVASCULAR EXAM: regular rate, normal rhythm, normal heart sounds. Absent : systolic murmur, diastolic murmur, rubs, gallop, clicks GI/ABDOMINAL EXAM: soft, normal bowel sounds. Absent: distended, tenderness, guarding, rebound, rigid EXTREMITIES EXAM: right BKA, Left LE - redeness and skin peeling of upto mid reich region. BACK EXAM: normal inspection NEUROLOGICAL EXAM: alert, oriented X3, no focal deficits PSYCHIATRIC EXAM: normal affect, normal mood - Labs CBC & Chem 7: 08/20/18 06:45 08/20/18 06:45 Labs: Abnormal Lab Results - Last 24 Hours (Table) 08/20/18 08/20/18 Range/Units 06:45 06:45 Hgb 11.3 L (11.4-16.0) gm/dL Chloride 112 H (98-107) mmol/L BUN 19 H (7-17) mg/dL Microbiology - Last 24 Hours (Table) 08/17/18 15:40 Blood Culture - Preliminary Blood No Growth after 48 hours 08/18/18 13:20 Gram Stain - Preliminary Ankle - Left Wound Culture - Preliminary Gram Neg Bacilli Gram Neg Bacilli#2 08/18/18 00:15 Gram Stain - Preliminary Ankle - Left Wound Culture - Preliminary Gram Neg Bacilli Assessment and Plan Assessment: ASSESSMENT Left lower extremity cellulitis failed outpatient treatment Degenerative joint disease History of MRSA History of right leg [id number] amputation Plan: Patient has been started on IV antibiotics vancomycin and showed significant improvement. Patient's wound cultures growing Pseudomonas aeruginosa and enterococcus - she has been started on ceftazidime yesterday. Continue antibiotics as per ID Dr. Jiménez's recommendations. Further recommendations to follow depending on the progress of the patient. Patient is DO NOT RESUSCITATE.
[2018-08-20] MEDS: PIPERACILLIN-TAZOBACTAM 3.375 GM in DEXTROSE/WATER 1 50ML.BAG IVPB SCH ×2 (17:40→23:54)
[2018-08-20 21:19] LABS: Glucose,Whole Blood 128 mg/dL (75-99)
[2018-08-20] MEDS: GABAPENTIN 300 MG CAP PO SCH (23:20)
--- NOTE | 2018-08-21 00:59 | PN ---
PROGRESS NOTE DATE OF SERVICE: 08/20/2018. REASON FOR FOLLOWUP: Left leg wound with secondary cellulitis. INTERVAL HISTORY: The patient is currently afebrile. He is breathing comfortably. Denies having any chest pain, shortness of breath, cough, no abdominal pain, or any worsening pain to the left leg area. EXAMINATION: Blood pressure is 115/62 with pulse of 75. Temperature 97.5. She is 100% on room air. General description is an elderly female lying in bed in no distress. Respiratory system is unlabored breathing. Clear to auscultation anteriorly. Heart S1, S2. Regular rate and rhythm. Abdomen soft. No tenderness. Left leg is currently dressed up. No obvious drainage on the dressing. LABS: Hemoglobin 11.8, white count 6.7, BUN of 19, creatinine 0.67. DIAGNOSTIC IMPRESSION AND PLAN: Patient with left leg wound with secondary cellulitis. Culture positive for Pseudomonas aeruginosa and group D Enterococcus antibiotic. At this time we will transition to Zosyn to cover for both the pathogen. Discontinue the Fortaz. Local care to continue with [facility]. Reevaluate the wound tomorrow. Continue supportive care. MMODL / IJN: [id number] /
[2018-08-21] MEDS: ASPIRIN 325 MG TAB PO SCH (08:05)
[2018-08-21] MEDS: FUROSEMIDE 20 MG TAB PO SCH (08:05)
[2018-08-21] MEDS: PANTOPRAZOLE 40 MG TABLET PO SCH (08:05)
[2018-08-21] MEDS: PIPERACILLIN-TAZOBACTAM 3.375 GM in DEXTROSE/WATER 1 50ML.BAG IVPB SCH ×2 (08:05→15:48)
[2018-08-21] MEDS: HEPARIN SODIUM,PORCINE 5,000 UNIT/ML 1 ML VIAL SQ SCH ×2 (08:06→22:20)
[2018-08-21 09:26] LABS: Basophils % (A) 0 %; Eosinophils # (A) 0.6 k/uL (0-0.7); Eosinophils % (A) 6 %; HCT 36.3 % (34.0-46.0); HGB 11.6 gm/dL (11.4-16.0); Hypochromasia Slight; Lymphocytes # (A) 0.6 k/uL (1.0-4.8); Lymphocytes % (A) 7 %; MCH 30.3 pg (25.0-35.0); MCV 94.6 fL (80.0-100.0); Mean Platelet Volume 6.8; Monocytes # (A) 0.3 k/uL (0-1.0); Monocytes % (A) 3 %; Neutrophils # (A) 7.7 k/uL (1.3-7.7); Neutrophils % (A) 83 %; Platelet Count 411 k/uL (150-450); RBC 3.84 m/uL (3.80-5.40); RDW 14.6 % (11.5-15.5); WBC 9.2 k/uL (3.8-10.6)
[2018-08-21 09:32] LABS: Calcium 8.7 mg/dL (8.4-10.2); Potassium 4.5 mmol/L (3.5-5.1)
--- NOTE | 2018-08-21 16:43 | P.PN ---
Subjective Progress Note Date: 08/21/18 Principal diagnosis: Left leg cellulitis Mr. Call is an 83-year-old female with a past medical history of degenerative joint disease, right BKA, history of MRSA coming to the hospital with a chief complaint of left lower extremity pain and swelling. Patient was treated with clindamycin outpatient but did not show much improvement and so admitted here for further evaluation and management. On 08/21/18 - Patient sitting up in a chair by the bedside appears to be no acute distress. On review of systems- Constitutional-Denies having any fevers chills or rigors Respiratory-no cough or difficulty in breathing Cardiovascular-no chest pain or palpitations GI-no abdominal pain nausea vomiting or diarrhea -no dysuria or hematuria Patient states that the redness and pain of her left lower extremity did improve compared to when she came into the hospital. Objective - Vital Signs Vital signs: Vital Signs Temp 97.3 F L 08/21/18 13:52 Pulse 82 08/21/18 15:16 Resp 16 08/21/18 15:16 BP 104/51 08/21/18 13:52 Pulse Ox 95 08/21/18 13:52 Intake & Output 08/20/18 08/21/18 08/21/18 18:59 06:59 18:59 Intake Total 450 700 Balance 450 700 Weight 53 kg Intake: Oral 450 700 Other: Voiding Method Bedside Commode Bedside Commode Bedpan Bedpan # Voids 2 3 1 # Bowel Movements 1 0 1 - Labs CBC & Chem 7: 08/21/18 08:48 08/21/18 08:48 Labs: Abnormal Lab Results - Last 24 Hours (Table) 08/20/18 08/21/18 08/21/18 Range/Units 20:50 08:48 08:48 Lymphocytes # 0.6 L (1.0-4.8) k/uL BUN 18 H (7-17) mg/dL Glucose 146 H (74-99) mg/dL POC Glucose (mg/dL) 128 H (75-99) mg/dL Microbiology - Last 24 Hours (Table) 08/18/18 00:15 Gram Stain - Final Ankle - Left Wound Culture - Final Pseudomonas aeruginosa Enterococcus faecalis Proteus mirabilis 08/18/18 13:20 Gram Stain - Preliminary Ankle - Left Wound Culture - Preliminary Pseudomonas aeruginosa Proteus mirabilis Group D Enterococcus 08/17/18 15:40 Blood Culture - Preliminary Blood No Growth after 72 hours 08/18/18 00:15 Anaerobic Culture - Preliminary Ankle - Left Assessment and Plan Assessment: ASSESSMENT Left lower extremity cellulitis failed outpatient treatment Degenerative joint disease History of MRSA History of right leg [id number] amputation Plan: Her IV antibiotics have been changed from Vancomycin to Zosyn yesterday as her wound cultures growing Pseudomonas aeruginosa and enterococcus. Continue antibiotics as per ID Dr. Jiménez's recommendations. Further recommendations to follow depending on the progress of the patient. Patient is DO NOT RESUSCITATE. Spoke with her son Dr. Call at [phone] and updated him about the progress. Time with Patient: Greater than 30
[2018-08-21 21:48] LABS: Glucose,Whole Blood 147 mg/dL (75-99)
--- NOTE | 2018-08-21 22:00 | PN ---
PROGRESS NOTE DATE OF SERVICE: 08/21/2018 REASON FOR FOLLOWUP: Left leg wound with secondary cellulitis. INTERVAL HISTORY: The patient is currently afebrile. She is breathing comfortably. Denies having any chest pain or shortness of breath or cough. No abdominal pain or any worsening pain to the left leg area. PHYSICAL EXAMINATION: Blood pressure 104/51 with a pulse of 82, temperature 97.3. She is 95% on room air. General description is an elderly female lying in bed in no distress. RESPIRATORY SYSTEM: Unlabored breathing. Clear to auscultation anteriorly. HEART: S1, S2. Regular rate and rhythm. ABDOMEN: Soft. No tenderness. Left lateral leg wound with slough tissue and surrounding redness slightly decreased. LABS: Hemoglobin is 11.6, white count 9.2 with a BUN of 18, creatinine 0.82. Wound culture with Pseudomonas aeruginosa, Enterococcus faecalis. Sensitivities on the proteus are currently pending. DIAGNOSTIC IMPRESSION AND PLAN: Patient with left lateral leg wound with secondary cellulitis, culture with pseudomonas and enterococcus, currently covered with Zosyn. Waiting for the sensitivity on the proteus to finalize to determine her discharge antibiotics. Continue local wound care with Santyl. Continue with supportive care. MMODL / IJN: [id number] /
[2018-08-21] MEDS: GABAPENTIN 300 MG CAP PO SCH (22:20)
[2018-08-22] MEDS: PIPERACILLIN-TAZOBACTAM 3.375 GM in DEXTROSE/WATER 1 50ML.BAG IVPB SCH ×4 (00:40→23:36)
[2018-08-22] MEDS: FUROSEMIDE 20 MG TAB PO SCH (07:36)
[2018-08-22] MEDS: ASPIRIN 325 MG TAB PO SCH (07:36)
[2018-08-22] MEDS: PANTOPRAZOLE 40 MG TABLET PO SCH (07:37)
[2018-08-22] MEDS: HEPARIN SODIUM,PORCINE 5,000 UNIT/ML 1 ML VIAL SQ SCH ×2 (07:37→20:24)
[2018-08-22] MEDS ORDERED: COLLAGENASE 250 UNIT/GM OINTMENT 30 GM TUBE TOPICAL SCH (11:00)
[2018-08-22 11:14] LABS: Basophils % (A) 1 %; Eosinophils # (A) 0.8 k/uL (0-0.7); Eosinophils % (A) 13 %; HCT 39.7 % (34.0-46.0); HGB 12.8 gm/dL (11.4-16.0); Hypochromasia Slight; Lymphocytes # (A) 1.1 k/uL (1.0-4.8); Lymphocytes % (A) 19 %; MCH 30.5 pg (25.0-35.0); MCHC 32.1 g/dL (31.0-37.0); MCV 94.8 fL (80.0-100.0); Mean Platelet Volume 8.1; Monocytes # (A) 0.4 k/uL (0-1.0); Monocytes % (A) 6 %; Neutrophils # (A) 3.6 k/uL (1.3-7.7); Neutrophils % (A) 59 %; Platelet Count 420 k/uL (150-450); RBC 4.19 m/uL (3.80-5.40); RDW 14.6 % (11.5-15.5); WBC 6.2 k/uL (3.8-10.6)
[2018-08-22 11:30] LABS: Calcium 8.8 mg/dL (8.4-10.2); Potassium 4.5 mmol/L (3.5-5.1)
[2018-08-22] MEDS: GABAPENTIN 300 MG CAP PO SCH (20:25)
[2018-08-22 20:39] LABS: Glucose,Whole Blood 131 mg/dL (75-99)
--- NOTE | 2018-08-22 22:32 | P.PN ---
Subjective Progress Note Date: 08/22/18 Principal diagnosis: Left leg cellulitis Mr. Call is an 83-year-old female with a past medical history of degenerative joint disease, right BKA, history of MRSA coming to the hospital with a chief complaint of left lower extremity pain and swelling. Patient was treated with clindamycin outpatient but did not show much improvement and so admitted here for further evaluation and management. On 08/22/18 - Patient sitting up in the chair. She has a visitor at bed side. On ROS - Constitutional-Denies having any fevers chills or rigors Respiratory-no cough or difficulty in breathing Cardiovascular-no chest pain or palpitations GI-no abdominal pain nausea vomiting or diarrhea -no dysuria or hematuria Objective - Vital Signs Vital signs: Vital Signs Temp 98.4 F 08/22/18 15:00 Pulse 69 08/22/18 15:00 Resp 18 08/22/18 16:00 BP 109/57 08/22/18 15:00 Pulse Ox 92 L 08/22/18 15:00 Intake & Output 08/21/18 08/22/18 08/22/18 18:59 06:59 18:59 Intake Total 1050 250 Balance 1050 250 Weight 53 kg 53 kg Intake: Oral 1050 250 Other: Voiding Method Bedside Commode Bedside Commode Bedside Commode Bedpan Bedpan Bedpan # Voids 1 2 2 # Bowel Movements 1 0 1 - Exam GEN. APPEARANCE: alert, in no apparent distress HEAD EXAM: atraumatic, normocephalic, normal inspection EYE EXAM: No pallor or icterus ENT EXAM: normal exam, mucous membranes moist RESPIRATORY EXAM: normal lung sounds bilaterally. Absent: respiratory distress , wheezes, rales, rhonchi, stridor CARDIOVASCULAR EXAM: regular rate, normal rhythm, normal heart sounds. Absent : systolic murmur, diastolic murmur, rubs, gallop, clicks GI/ABDOMINAL EXAM: soft, normal bowel sounds. Absent: distended, tenderness, guarding, rebound, rigid EXTREMITIES EXAM: right BKA, Left LE -wrapped in a gauze NEUROLOGICAL EXAM: alert, oriented X3, no focal deficits PSYCHIATRIC EXAM: normal affect, normal mood - Labs CBC & Chem 7: 08/22/18 10:13 08/22/18 10:13 Labs: Abnormal Lab Results - Last 24 Hours (Table) 08/21/18 08/22/18 08/22/18 Range/Units 21:17 10:13 10:13 Eosinophils # 0.8 H (0-0.7) k/uL Chloride 110 H (98-107) mmol/L BUN 20 H (7-17) mg/dL POC Glucose (mg/dL) 147 H (75-99) mg/dL Microbiology - Last 24 Hours (Table) 08/18/18 13:20 Gram Stain - Final Ankle - Left Wound Culture - Final Pseudomonas aeruginosa Proteus mirabilis Enterococcus faecalis 08/18/18 00:15 Anaerobic Culture - Final Ankle - Left 08/17/18 15:40 Blood Culture - Preliminary Blood No Growth after 96 hours 08/18/18 00:15 Gram Stain - Final Ankle - Left Wound Culture - Final Pseudomonas aeruginosa Enterococcus faecalis Proteus mirabilis Assessment and Plan Assessment: ASSESSMENT Left lower extremity cellulitis failed outpatient treatment Degenerative joint disease History of MRSA History of right leg [id number] amputation Plan: Her IV antibiotics have been changed from Vancomycin to Zosyn yesterday as her wound cultures growing Pseudomonas aeruginosa and enterococcus and Proteus . Continue antibiotics as per MP Jiménez's recommendations. Further recommendations based on the clinical course. Patient is DO NOT RESUSCITATE.
--- NOTE | 2018-08-22 23:34 | PN ---
PROGRESS NOTE DATE OF SERVICE: 08/22/2018 REASON FOR FOLLOWUP: Left lateral ankle wound with secondary cellulitis. INTERVAL HISTORY: The patient is currently afebrile. She is breathing comfortably. Denies having any chest pain, shortness of breath or cough, and no abdominal pain or any worsening pain to the left lateral leg area. PHYSICAL EXAMINATION: Blood pressure is 109/57 with a pulse of 69, temperature 98.4. She is 92% on room air. General description is an elderly female up in the bed in no distress. RESPIRATORY SYSTEM: Unlabored breathing. Clear to auscultation anteriorly. HEART: S1, S2. Regular rate and rhythm. ABDOMEN: Soft. No tenderness. Left lateral leg wound with minimal slough tissue. Surrounding redness slightly decreased. No drainage. LABS: Hemoglobin is 12.9, white count 6.2 with a BUN of 20, creatinine 0.75. Culture with pseudomonas and Proteus mirabilis and Enterococcus faecalis. DIAGNOSTIC IMPRESSION AND PLAN: Patient with left lateral leg wound with secondary cellulitis, culture with multiple pathogens. Plan will be to finish therapy with oral Cipro and Augmentin for about 10 days. Local care to continue with Aretha. Daughter was present at bedside. Questions were answered. MMODL / IJN: [id number] /
[2018-08-23 06:53] LABS: Glucose,Whole Blood 83 mg/dL (75-99)
[2018-08-23] MEDS: ASPIRIN 325 MG TAB PO SCH (09:16)
[2018-08-23] MEDS: FUROSEMIDE 20 MG TAB PO SCH (09:16)
[2018-08-23] MEDS: PANTOPRAZOLE 40 MG TABLET PO SCH (09:16)
[2018-08-23] MEDS: HEPARIN SODIUM,PORCINE 5,000 UNIT/ML 1 ML VIAL SQ SCH (09:17)
[2018-08-23] MEDS: PIPERACILLIN-TAZOBACTAM 3.375 GM in DEXTROSE/WATER 1 50ML.BAG IVPB SCH (09:17)
[2018-08-23 10:29] LABS: Basophils # (A) 0.1 k/uL (0-0.2); Basophils % (A) 1 %; Eosinophils # (A) 0.6 k/uL (0-0.7); Eosinophils % (A) 11 %; HCT 38.3 % (34.0-46.0); HGB 11.6 gm/dL (11.4-16.0); Hypochromasia Slight; Lymphocytes # (A) 1.1 k/uL (1.0-4.8); Lymphocytes % (A) 20 %; MCH 29.4 pg (25.0-35.0); MCHC 30.4 g/dL (31.0-37.0); MCV 96.7 fL (80.0-100.0); Mean Platelet Volume 6.7; Monocytes # (A) 0.2 k/uL (0-1.0); Monocytes % (A) 4 %; Neutrophils # (A) 3.4 k/uL (1.3-7.7); Neutrophils % (A) 61 %; Platelet Count 426 k/uL (150-450); RBC 3.96 m/uL (3.80-5.40); RDW 14.6 % (11.5-15.5); WBC 5.6 k/uL (3.8-10.6)
[2018-08-23 10:52] LABS: Calcium 8.6 mg/dL (8.4-10.2); Potassium 4.1 mmol/L (3.5-5.1)
--- NOTE | 2018-08-23 14:17 | PN ---
PROGRESS NOTE DATE OF SERVICE: 08/23/2018 REASON FOR FOLLOWUP: Left lateral leg wound with secondary cellulitis. INTERVAL HISTORY: The patient is currently afebrile. She is breathing comfortably. Denies having any chest pain, shortness of breath. No cough, no abdominal pain, or worsening pain in the left lateral leg wound area. PHYSICAL EXAMINATION: Blood pressure 127/68 with a pulse of 55, temperature 97.8, she is 93% on room air. General description is an elderly female, lying in bed in no distress. RESPIRATORY SYSTEM: Unlabored breathing, clear to auscultation anteriorly. HEART: S1, S2. Regular rate and rhythm. ABDOMEN: Soft, no tenderness. Left lateral leg wound is currently dressed up, no obvious drainage on the dressing. LABS: White count 5.6, creatinine 0.77. Wound culture with Pseudomonas Proteus, Enterococcus faecalis. DIAGNOSTIC IMPRESSION AND PLAN: Patient with left lateral leg wound with secondary cellulitis, culture predominantly with Pseudomonas Proteus and Enterococcus. Recommending finish therapy with oral Augmentin and Cipro for about 10 days. Local care to continue with santal and [facility]. Continue supportive care. MMODL / IJN: [id number] /
[2018-08-23 15:25] VITALS: BP 105/51; PULSE 67; RESP 16; TEMP 97.9
--- NOTE | 2018-08-28 19:53 | P.PN ---
Subjective Progress Note Date: 08/18/18 Progress note being dictated for Dr. Cerrato. Interval history: This is an 83-year-old female admitted with left leg cellulitis, failed outpatient treatment with clindamycin. Patient also presents with large protruding rectal prolapse. Evaluated by surgery, recommendations noted, abdominal x-ray ordered. Maintained on IV antibiotics/ wound care as per infectious disease. Cultures pending. Afebrile Objective - Vital Signs Vital signs: Vital Signs Temp 97.1 F L 08/18/18 14:35 Pulse 67 08/18/18 16:00 Resp 18 08/18/18 16:00 BP 113/52 08/18/18 14:35 Pulse Ox 94 L 08/18/18 14:35 Intake & Output 08/18/18 08/18/18 08/19/18 06:59 18:59 06:59 Intake Total 100 Balance 100 Weight 53 kg Intake: Oral 100 Other: Voiding Method Bedpan # Voids 1 2 - Exam GEN. APPEARANCE: alert, in no apparent distress HEAD EXAM: atraumatic, normocephalic, normal inspection EYE EXAM: No pallor or icterus ENT EXAM: normal exam, mucous membranes moist RESPIRATORY EXAM: normal lung sounds bilaterally. Absent: respiratory distress , wheezes, rales, rhonchi, stridor CARDIOVASCULAR EXAM: regular rate, normal rhythm, normal heart sounds. Absent : systolic murmur, diastolic murmur, rubs, gallop, clicks GI/ABDOMINAL EXAM: soft, normal bowel sounds. Absent: distended, tenderness, guarding, rebound, rigid. Rectum: with large protruding prolapse EXTREMITIES EXAM: right BKA, Left LE -wrapped in a gauze NEUROLOGICAL EXAM: alert, oriented X3, no focal deficits PSYCHIATRIC EXAM: normal affect, normal mood - Labs CBC & Chem 7: 08/23/18 09:39 08/23/18 09:39 Labs: Abnormal Lab Results - Last 24 Hours (Table) 08/18/18 Range/Units 07:13 POC Glucose (mg/dL) 73 L (75-99) mg/dL Microbiology - Last 24 Hours (Table) 08/18/18 13:20 Wound Culture - Preliminary Ankle - Left 08/17/18 15:40 Blood Culture - Preliminary Blood No Growth after 24 hours 08/18/18 00:15 Gram Stain - Preliminary Ankle - Left Wound Culture - Preliminary 08/18/18 00:15 Anaerobic Culture - Preliminary Ankle - Left Assessment and Plan Assessment: Left lower extremity wound with secondary cellulitis, failed outpatient treatment. Degenerative joint disease History of MRSA History of right leg [id number] amputation Rectal prolapse, present on admission Plan: Continue current medication regime ,monitoring and symptomatic treatment. Wound cultures pending. Maintain IV antibiotics/Wound Care as per infectious disease. Further surgical recommendations regarding rectal prolapse pending abdominal x-ray findings. Further recommendations to follow. The impression and plan of care has been dictated as directed. : I performed a history and examination of this patient, discussed the same with the dictator. I agree with the dictator's note ,documented as a scribe. Any additional findings or plans will be noted.
== END 2018-08-23 16:32 | disposition home health service (06) | DRG 300 ==
LOC: EC 13:22 → 4MS4W 16:31
PROVIDERS: ADMIT Hospitalist; ATTEND Hospitalist
DX: I83.028 Varicose veins of left lower extremity with ulcer other part of lower leg (principal); L97.929 Non-pressure chronic ulcer of unspecified part of left lower leg with unspecified severity; L03.116 Cellulitis of left lower limb; I73.9 Peripheral vascular disease, unspecified; K62.3 Rectal prolapse; B96.4 Proteus (mirabilis) (morganii) as the cause of diseases classified elsewhere; B96.5 Pseudomonas (aeruginosa) (mallei) (pseudomallei) as the cause of diseases classified elsewhere; B95.2 Enterococcus as the cause of diseases classified elsewhere; M19.90 Unspecified osteoarthritis, unspecified site; Z79.82 Long term (current) use of aspirin; Z80.0 Family history of malignant neoplasm of digestive organs; Z82.49 Family history of ischemic heart disease and other diseases of the circulatory system; Z86.14 Personal history of Methicillin resistant Staphylococcus aureus infection; Z87.01 Personal history of pneumonia (recurrent); Z87.891 Personal history of nicotine dependence; Z89.511 Acquired absence of right leg below knee; Z90.710 Acquired absence of both cervix and uterus; Z66 Do not resuscitate; Z98.42 Cataract extraction status, left eye; Z98.41 Cataract extraction status, right eye; Z96.1 Presence of intraocular lens; Z86.010 Personal history of colon polyps; Z79.2 Long term (current) use of antibiotics; Z79.899 Other long term (current) drug therapy
CPT/HCPCS: 36415; 74019; 80048; 80053; 80202; 81003; 83605; 85025; 85610; 85730; 86140; 87040; 87070; 87075; 87077; 87186; 87205; 96365; 96367; 99285

== ENCOUNTER 2019-01-26 14:33 | Inpatient (IN) | payer MEDICARE, OTHER ==
[2019-01-26] MEDS ORDERED: SODIUM CHLORIDE 0.9% 500 ML 500 ML IV ONE (14:53)
--- NOTE | 2019-01-26 15:33 | ED ---
General Adult HPI - General Chief complaint: Psychiatric Symptoms Stated complaint: psych eval Time Seen by Provider: 01/26/19 14:42 Source: patient, EMS, RN notes reviewed, old records reviewed Mode of arrival: EMS Limitations: altered mental status - History of Present Illness Initial comments: 83-year-old female presents for evaluation of left lower extremity erythema and swelling. Initial history obtained from the patient's close family friend. 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 She has had progressive swelling and erythema in the left leg over the past several weeks. According to patient's friend and patient's son who is a physician this has been worsening. Secondary issue of increased behavior and need for psychiatric evaluation. Over the past 6 months patient has been infatuated with her feces. She is made claims that she needs to some of her stool since that the "bones can be removed and given to the children". Over the past several weeks these thoughts of increased. There is reported visual and auditory hallucinations. Patient has no past psychiatric history. She does currently live alone. She has previous BKA and is wheelchair bound. She has been sleeping in her wheelchair in her bathroom holding onto large amounts of her feces in plastic bags. - Related Data Home Medications Medication Instructions Recorded Confirmed Multivit-Min/Iron/Folic/Lutein 1 tab PO DAILY 01/20/17 01/26/19 [Centrum Silver Women Tablet] Furosemide [Lasix] 20 mg PO DAILY 01/31/18 01/26/19 Loratadine [Claritin] 10 mg PO DAILY PRN 01/31/18 01/26/19 Grapefruit Seed Extract 125 mg PO BID 07/17/18 01/26/19 Aspirin EC [Ecotrin] 325 mg PO DAILY 08/17/18 01/26/19 Gabapentin [Neurontin] 300 mg PO HS 08/17/18 01/26/19 Ascorbic Acid [Vitamin C] 1,000 mg PO DAILY 01/26/19 01/26/19 Levocetirizine Dihydrochloride 5 mg PO DAILY 01/26/19 01/26/19 [Xyzal] Reconnect Hearing Support 2 tab PO BID 01/26/19 01/26/19 Rosuvastatin [Crestor] 20 mg PO DAILY 01/26/19 01/26/19 SILVER sulfADIAZINE CREAM 1 applic TOPICAL BID PRN 01/26/19 01/26/19 [Silvadene Cream] True Aloe (Unknown) 2 tab PO BID 01/26/19 01/26/19 Allergies Allergy/AdvReac Type Severity Reaction Status Date / Time No Known Allergies Allergy Verified 01/26/19 15:06 Review of Systems ROS Statement: Those systems with pertinent positive or pertinent negative responses have been documented in the HPI. ROS Other: All systems not noted in ROS Statement are negative. Past Medical History Past Medical History: Osteoarthritis (OA), Pneumonia Additional Past Medical History / Comment(s): BKA right leg History of Any Multi-Drug Resistant Organisms: MRSA Date of last positivie culture/infection: 01/31/18 MDRO Source:: left ankle Past Surgical History: Hysterectomy, Tonsillectomy Additional Past Surgical History / Comment(s): kaci cataract removal with lens implant, picc line insertion since removed, colonoscopy/polyps removed-benign, numerous lower leg/foot debridements. amputation below rt knee, pt stated in past took meds for her thyroid but no longer on anything Past Anesthesia/Blood Transfusion Reactions: No Reported Reaction Past Psychological History: No Psychological Hx Reported Smoking Status: Former smoker Past Alcohol Use History: None Reported Past Drug Use History: None Reported - Past Family History Son(s) History Unknown: Yes Mother History Unknown: Yes Family Medical History: Cancer Additional Family Medical History / Comment(s): Mother had stomach cancer. Father Family Medical History: Congestive Heart Failure (CHF) General Exam Limitations: altered mental status General appearance: alert, in no apparent distress Head exam: Present: atraumatic, normocephalic Eye exam: Present: normal appearance, PERRL ENT exam: Present: normal exam Neck exam: Present: normal inspection. Absent: tenderness, meningismus Respiratory exam: Present: normal lung sounds bilaterally. Absent: respiratory distress, wheezes Cardiovascular Exam: Present: regular rate, normal rhythm GI/Abdominal exam: Present: soft. Absent: distended, tenderness Extremities exam: Present: other (Right BKA, left foot erythema, no induration or fluctuance.) Neurological exam: Present: alert, oriented X3. Absent: motor sensory deficit Skin exam: Present: warm, dry, intact. Absent: cyanosis, diaphoretic Course Vital Signs 01/26/19 14:36 Temperature 98.1 F Pulse Rate 78 Respiratory 18 Rate Blood Pressure 158/70 O2 Sat by Pulse 98 Oximetry EKG Findings - EKG Comments: EKG Findings:: EKG: Normal sinus rhythm, rate 67, HI interval 202, QRS duration 66, QTC 448, no signs of ischemia. Medical Decision Making - Medical Decision Making 83-year-old female presenting for left lower extremity swelling, erythema, and psychiatric evaluation. Examination patient is stable vitals, she does have significant erythema and swelling of the left leg with some tenderness to palpation. No crepitus, no fluctuance. Patient has normal white blood cell count, normal CMP, normal urinalysis. She does receive chest x-ray and head CT guarding her increased bizarre behavior, head CT is negative for any acute intracranial pathology, chest x-ray negative for focal pneumonia or acute findings. Patient is started on broad-spectrum antibiotics ceftriaxone, vancomycin. She will be admitted for further treatment of left lower extremity cellulitis. Regarding her psychiatric issues, psychiatry is placed on consult. Case discussed with Dr. Andrade, will accept admission. - Lab Data Result diagrams: 01/26/19 15:05 01/26/19 15:05 Lab Results 01/26/19 01/26/19 01/26/19 Range/Units 15:05 15:05 15:05 WBC 8.1 (3.8-10.6) k/uL RBC 4.32 (3.80-5.40) m/uL Hgb 13.0 (11.4-16.0) gm/dL Hct 42.1 (34.0-46.0) % MCV 97.6 (80.0-100.0) fL MCH 30.2 (25.0-35.0) pg MCHC 30.9 L (31.0-37.0) g/dL RDW 13.9 (11.5-15.5) % Plt Count 345 (150-450) k/uL Neutrophils % 68 % Lymphocytes % 22 % Monocytes % 6 % Eosinophils % 2 % Basophils % 1 % Neutrophils # 5.5 (1.3-7.7) k/uL Lymphocytes # 1.8 (1.0-4.8) k/uL Monocytes # 0.5 (0-1.0) k/uL Eosinophils # 0.1 (0-0.7) k/uL Basophils # 0.0 (0-0.2) k/uL PT 9.9 (9.0-12.0) sec INR 0.9 (<1.2) APTT 22.8 (22.0-30.0) sec Sodium 139 (137-145) mmol/L Potassium 4.5 (3.5-5.1) mmol/L Chloride 106 (98-107) mmol/L Carbon Dioxide 27 (22-30) mmol/L Anion Gap 6 mmol/L BUN 26 H (7-17) mg/dL Creatinine 0.65 (0.52-1.04) mg/dL Est GFR (CKD-EPI)AfAm >90 (>60 ml/min/1.73 sqM) Est GFR (CKD-EPI)NonAf 83 (>60 ml/min/1.73 sqM) Glucose 90 (74-99) mg/dL POC Glucose (mg/dL) (75-99) mg/dL POC Glu Refinery Operator Crude Unit ID Calcium 9.4 (8.4-10.2) mg/dL Total Bilirubin 0.4 (0.2-1.3) mg/dL AST 31 (14-36) U/L ALT 31 (9-52) U/L Alkaline Phosphatase 64 (38-126) U/L Total Protein 7.2 (6.3-8.2) g/dL Albumin 3.7 (3.5-5.0) g/dL Urine Color Urine Appearance (Clear) Urine pH (5.0-8.0) Ur Specific Garfield (1.001-1.035) Urine Protein (Negative) Urine Glucose (UA) (Negative) Urine Ketones (Negative) Urine Blood (Negative) Urine Nitrite (Negative) Urine Bilirubin (Negative) Urine Urobilinogen (<2.0) mg/dL Ur Leukocyte Esterase (Negative) Urine Opiates Screen (NotDetected) Ur Oxycodone Screen (NotDetected) Urine Methadone Screen (NotDetected) Ur Propoxyphene Screen (NotDetected) Ur Barbiturates Screen (NotDetected) U Tricyclic Antidepress (NotDetected) Ur Phencyclidine Scrn (NotDetected) Ur Amphetamines Screen (NotDetected) U Methamphetamines Scrn (NotDetected) U Benzodiazepines Scrn (NotDetected) Urine Cocaine Screen (NotDetected) U Marijuana (THC) Screen (NotDetected) 01/26/19 01/26/19 Range/Units 15:05 15:49 WBC (3.8-10.6) k/uL RBC (3.80-5.40) m/uL Hgb (11.4-16.0) gm/dL Hct (34.0-46.0) % MCV (80.0-100.0) fL MCH (25.0-35.0) pg MCHC (31.0-37.0) g/dL RDW (11.5-15.5) % Plt Count (150-450) k/uL Neutrophils % % Lymphocytes % % Monocytes % % Eosinophils % % Basophils % % Neutrophils # (1.3-7.7) k/uL Lymphocytes # (1.0-4.8) k/uL Monocytes # (0-1.0) k/uL Eosinophils # (0-0.7) k/uL Basophils # (0-0.2) k/uL PT (9.0-12.0) sec INR (<1.2) APTT (22.0-30.0) sec Sodium (137-145) mmol/L Potassium (3.5-5.1) mmol/L Chloride (98-107) mmol/L Carbon Dioxide (22-30) mmol/L Anion Gap mmol/L BUN (7-17) mg/dL Creatinine (0.52-1.04) mg/dL Est GFR (CKD-EPI)AfAm (>60 ml/min/1.73 sqM) Est GFR (CKD-EPI)NonAf (>60 ml/min/1.73 sqM) Glucose (74-99) mg/dL POC Glucose (mg/dL) 77 (75-99) mg/dL POC Glu Refinery Operator Crude Unit ID [email or web address] Calcium (8.4-10.2) mg/dL Total Bilirubin (0.2-1.3) mg/dL AST (14-36) U/L ALT (9-52) U/L Alkaline Phosphatase (38-126) U/L Total Protein (6.3-8.2) g/dL Albumin (3.5-5.0) g/dL Urine Color Light Yellow Urine Appearance Clear (Clear) Urine pH 5.0 (5.0-8.0) Ur Specific [place]field 1.008 (1.001-1.035) Urine Protein Negative (Negative) Urine Glucose (UA) Negative (Negative) Urine Ketones Negative (Negative) Urine Blood Negative (Negative) Urine Nitrite Negative (Negative) Urine Bilirubin Negative (Negative) Urine Urobilinogen <2.0 (<2.0) mg/dL Ur Leukocyte Esterase Negative (Negative) Urine Opiates Screen Not Detected (NotDetected) Ur Oxycodone Screen Not Detected (NotDetected) Urine Methadone Screen Not Detected (NotDetected) Ur Propoxyphene Screen Not Detected (NotDetected) Ur Barbiturates Screen Not Detected (NotDetected) U Tricyclic Antidepress Not Detected (NotDetected) Ur Phencyclidine Scrn Not Detected (NotDetected) Ur Amphetamines Screen Not Detected (NotDetected) U Methamphetamines Scrn Not Detected (NotDetected) U Benzodiazepines Scrn Not Detected (NotDetected) Urine Cocaine Screen Not Detected (NotDetected) U Marijuana (THC) Screen Not Detected (NotDetected) Disposition Clinical Impression: Cellulitis of leg, left Disposition: ADMITTED IP TO THIS [facility] Condition: Stable Is patient prescribed a controlled substance at d/c from ED?: No Referrals: Jose Reese MD [Primary Care Provider] - 1-2 days Decision to Admit Reason: Admit from EC Decision Date: 01/26/19 Decision Time: 16:50
[2019-01-26 15:37] LABS: Appearance,Urine Clear (Clear); Bilirubin,Urine Negative (Negative); Blood,Urine Negative (Negative); Color,Urine Light Yellow; Glucose,Urine (UA) Negative (Negative); Ketones,Urine Negative (Negative); Leukocyte Esterase,Urine Negative (Negative); Nitrite,Urine Negative (Negative); Protein,Urine Negative (Negative); Specific Gravity,Urine 1.008 (1.001-1.035); Urobilinogen,Urine <2.0 mg/dL (<2.0)
[2019-01-26 15:39] LABS: Basophils % (A) 1 %; Eosinophils # (A) 0.1 k/uL (0-0.7); Eosinophils % (A) 2 %; HCT 42.1 % (34.0-46.0); Lymphocytes # (A) 1.8 k/uL (1.0-4.8); Lymphocytes % (A) 22 %; MCH 30.2 pg (25.0-35.0); MCHC 30.9 g/dL (31.0-37.0); MCV 97.6 fL (80.0-100.0); Mean Platelet Volume 7.4; Monocytes # (A) 0.5 k/uL (0-1.0); Monocytes % (A) 6 %; Neutrophils # (A) 5.5 k/uL (1.3-7.7); Neutrophils % (A) 68 %; Platelet Count 345 k/uL (150-450); RBC 4.32 m/uL (3.80-5.40); RDW 13.9 % (11.5-15.5); WBC 8.1 k/uL (3.8-10.6)
[2019-01-26 15:41] LABS: ALT 31 U/L (9-52); AST 31 U/L (14-36); Albumin 3.7 g/dL (3.5-5.0); Alkaline Phosphatase 64 U/L (38-126); Anion Gap 6 mmol/L; Blood Urea Nitrogen 26 mg/dL (7-17); Calcium 9.4 mg/dL (8.4-10.2); Carbon Dioxide 27 mmol/L (22-30); Chloride 106 mmol/L (98-107); Glucose 90 mg/dL (74-99); Potassium 4.5 mmol/L (3.5-5.1); Sodium 139 mmol/L (137-145); Total Bilirubin 0.4 mg/dL (0.2-1.3); Total Protein 7.2 g/dL (6.3-8.2)
[2019-01-26 15:51] LABS: Glucose,Whole Blood 77 mg/dL (75-99)
[2019-01-26 15:52] LABS: INR 0.9 (<1.2); Partial Thromboplastin Time 22.8 sec (22.0-30.0); Prothrombin Time 9.9 sec (9.0-12.0)
[2019-01-26 15:53] LABS: Amphetamine Screen,Urine Not Detected (NotDetected); Barbiturate Screen,Urine Not Detected (NotDetected); Benzodiazepines Screen,Urine Not Detected (NotDetected); Cocaine Screen,Urine Not Detected (NotDetected); Methadone Screen, Urine Not Detected (NotDetected); Opiate Screen,Urine Not Detected (NotDetected); Oxycodone Screen, Urine Not Detected (NotDetected); Phencyclidine Screen,Urine Not Detected (NotDetected); Tricyclic Antidepressant,Urine Not Detected (NotDetected); Urn Cannabinoid Scrn Not Detected (NotDetected)
--- NOTE | 2019-01-26 15:53 | CT ---
EXAMINATION TYPE: CT brain wo con DATE OF EXAM: 01/26/2019 COMPARISON: 11/24/2016 HISTORY: Patient poor historian CT DLP: 1188.[address] of the brain was performed. The ventricles, basal cisterns and sulci overlying the cerebral convexities demonstrate mild enlargem ent. There is no evidence for intracranial hemorrhage or sulcal effacement. There is decreased attenuation about the periventricular white matter and deep white matter of both c erebral hemispheres, compatible with chronic small vessel ischemia. Differential diagnosis does inclu de demyelination. No mass effects are seen.No midline shift. Osseous calvarium is intact. If symptoms persist consider MRI. IMPRESSION: 1. Age related atrophic and chronic small vessel ischemic change without acute intracranial process s een at this time.
--- NOTE | 2019-01-26 15:53 | XR ---
EXAMINATION TYPE: XR chest 2V DATE OF EXAM: 01/26/2019 COMPARISON: Chest x-ray December 10, 2017 HISTORY: Difficulty breathing and pneumonia. TECHNIQUE: Frontal and lateral views of the chest are obtained. FINDINGS: There is chronic parenchymal change without suspicious focal air space opacity, pleural ef fusion, or pneumothorax seen. The cardiac silhouette size is upper limits of normal with atheroscler otic thoracic aorta. The osseous structures are demineralized. High riding right humeral head sugge sts chronic rotator cuff tear. Degenerative change both shoulders is present. Underlying scoliosis is noted. IMPRESSION: Chronic parenchymal changes without acute pulmonary process.
[2019-01-26] MEDS ORDERED: VANCOMYCIN IV PER PHARMACY 1 EACH MISC MISCELLANE PRN (16:26)
[2019-01-26] MEDS ORDERED: cefTRIAXone IN SWFI 1,000 MG/10 ML SYRINGE IVP STA (16:26)
[2019-01-26] MEDS ORDERED: VANCOMYCIN 1,000 MG in SODIUM CHLORIDE 0.9% 250 ML IVPB STA (16:29)
[2019-01-26] MEDS ORDERED: NALOXONE 0.4 MG/ML 1 ML VIAL IV PRN (16:45)
[2019-01-26] MEDS ORDERED: ACETAMINOPHEN TAB 325 MG TAB PO PRN (16:45)
[2019-01-26] MEDS: SODIUM CHLORIDE 0.9% 1,000 ML IV SCH (21:03)
[2019-01-27] MEDS: VANCOMYCIN 750 MG in SODIUM CHLORIDE 0.9% 250 ML IVPB SCH ×2 (06:18→21:38)
[2019-01-27] MEDS ORDERED: LORATADINE 10 MG TAB PO PRN (11:33)
[2019-01-27] MEDS: FUROSEMIDE 20 MG TAB PO SCH (13:13)
[2019-01-27] MEDS: ASCORBIC ACID 500 MG TAB PO SCH (13:13)
[2019-01-27] MEDS ORDERED: LACTULOSE 20 GM/30 ML CUP PO PRN (16:10)
[2019-01-27] MEDS ORDERED: MELATONIN 3 MG TABLET PO PRN (16:10)
[2019-01-27] MEDS ORDERED: LORazepam 0.5 MG TAB PO PRN (16:10)
[2019-01-27] MEDS ORDERED: ONDANSETRON 4 MG/2 ML VIAL IVP PRN (16:10)
[2019-01-27] MEDS ORDERED: MAGNESIUM HYDROXIDE 2,400 MG/10 ML CUP PO PRN (16:10)
[2019-01-27] MEDS ORDERED: CALCIUM CARBONATE 500 MG CHEWABLE PO PRN (16:10)
--- NOTE | 2019-01-27 17:24 | HP ---
HISTORY AND PHYSICAL ADDENDUM: I expect this patient to be in the hospital at least for 2 nights. 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 Also patient has cellulitis of left lower extremity. The patient has to be admitted as an inpatient. MIROSLAVA / WENDY: [id number] /
--- NOTE | 2019-01-27 17:24 | HP ---
HISTORY AND PHYSICAL DATE OF ADMISSION: January 26, 2019. DATE OF SERVICE: January 27, 2019. PRESENTING COMPLAINT: Possibly psychotic. HISTORY OF PRESENTING COMPLAINT: This is an 83-year-old patient who possibly is following with visiting physician Dr. Jose Reese, has recently has seen a physician [place] from [place]. A lot of history is obtained from the patient's son Mitch Call, telephone #[phone], who is also the patient's dual power of cleaning matron. The patient has another son, Gus Call, telephone [phone], lives in [place]. Most of the history is obtained by the son, Dr. Jhonatan Call who is a family doctor out of [place]. The patient for the longest time did not want to use medicine. Did get gangrene in the right leg when she lost her right leg and then she did start taking some medications. The patient has been having episodes. Patient does have help at home, but often times the patient is a saving orange peels for the neighbor's chickens where there are no chickens. Sometimes she is talking to invisible people. Also sometimes she wants to save her feces and even sometimes goes looking for feces in the toilet so that it can be done to repair her eyelids. Based on that EPS had been called out. Other times she does better. At this point, also patient's left leg has got pain and swelling and some breakdown of skin around the left ankle with also admitted with acute cellulitis. The patient herself is not really aware why she is here and is wondering the same. The patient's appetite is good. Denies any obvious fever and chills. REVIEW OF SYSTEMS: CONSTITUTIONAL: None. HEENT none. RESPIRATORY: Occasional short of breath. CARDIOVASCULAR: None. GASTROINTESTINAL: None. GENITOURINARY: None. MUSCULOSKELETAL: Arthritic pain in joints. DERMATOLOGICAL: Redness of the left lower extremity doing relatively well. PSYCHIATRY: As above. NEUROLOGICAL as above. PAST MEDICAL HISTORY: Osteoarthritis, right below-knee amputation for gangrene, rectocele, COPD, osteoarthritis. PAST SURGICAL HISTORY: Hysterectomy, tonsillectomy, bilateral cataracts removed, numerous lower leg for debridement, amputation, right below-knee. SOCIAL HISTORY: Patient lives alone. The patient's friend Stephanie helps out, has a wheelchair. Has a leg prosthesis the patient smoked for close to 50 years, stopped in 2002. No alcohol. FAMILY HISTORY: Mother had stomach cancer. HOME MEDICATIONS: 1. True Aloe 2 tablets p.o. b.i.d. 2. Reconnect hearing support 2 tablets p.o. b.i.d. 3. Levocetirizine 5 mg p.o. daily. 4. Vitamin C 1000 mg p.o. daily. 5. Crestor 20 mg p.o. daily. 6. Centrum Silver 1 tablet p.o. daily. 7. Claritin 10 mg p.o. daily p.r.n. 8. [place] food seed extract 125 mg b.i.d. 9. Neurontin 300 mg q.h.s. 10.Lasix 20 mg p.o. daily. 11.Aspirin 325 p.o. daily. 12.Silver sulfadiazine 1 application topical b.i.d. ALLERGIES: None. PHYSICAL EXAMINATION: VITAL SIGNS: Vital signs on presentation, temperature 98.1, pulse 72, respiratory 18, blood pressure 152/70, repeat is 115/73, pulse ox 98% on room air. GENERAL APPEARANCE: Thin build, sitting on bed, awake. EYES: Pupils equal. Conjunctivae normal. HEENT: External appearance of nose and ears normal. Oral cavity normal. NECK: JVD not raised. Mass not palpable. RESPIRATORY: Effort normal. LUNGS: Decreased breath sounds. CARDIOVASCULAR: 1st and 2nd sounds no edema. ABDOMEN: Soft, nontender. Liver and spleen not palpable. LYMPHATIC: No lymph nodes palpable in neck or axillae. PSYCHIATRY: Patient is able to answer questions, but when I was talking to the patient's son on the phone, in the far end of the room, the patient was talking to herself. NEUROLOGICAL: Pupils equal. Cranial nerves grossly intact. Moving all 4 limbs. DERMATOLOGICAL: Redness of the leg below the knee down to the foot with breakdown of skin the left lateral ankle with tenderness present, increased local temperature. LABORATORY DATA: White count 8.1, hemoglobin 13.0. Potassium 4.5, BUN 26, creatinine 0.65. UA negative. Urine drug screen negative. ASSESSMENT: 1. Acute left lower extremity cellulitis with breakdown of skin of the left lateral malleolus cellulitis. 2. Psychosis, cause undetermined. Seems to have been going on for sometime. The patient may have underlying schizophrenia. 3. Chronic obstructive pulmonary disease in an ex-smoker. 4. Medical debility patient needs help with transfer. 5. Primary osteoarthritis. 6. Right below-knee amputation. 7. Chronically prolapsed rectum. 8. Cognitive impairment. Will need further testing. PLAN: The patient will be treated with antibiotics for the left lower extremity. We will use Silvadene cream with dressing. ID has been consulted. We will also get a psychiatry evaluation. manager cardiology/social media marketing analyst will be involved. The patient may need guardianship depending on the clinical course. Copy to Visiting Physicians Dr. Jose Reese. MMODL / IJN: [id number] /
[2019-01-27] MEDS: SODIUM CHLORIDE 0.9% 1,000 ML IV SCH (18:03)
[2019-01-27] MEDS: GABAPENTIN 300 MG CAP PO SCH (20:08)
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
[2019-01-27] MEDS: diphenhydrAMINE 25 MG CAP PO SCH (22:40)
[2019-01-27] MEDS: HALOPERIDOL 5 MG TAB PO SCH (22:40)
[2019-01-28] MEDS: LORATADINE 10 MG TAB PO SCH (07:23)
[2019-01-28] MEDS: ATORVASTATIN 40 MG TAB PO SCH (07:23)
[2019-01-28] MEDS: FUROSEMIDE 20 MG TAB PO SCH (07:24)
[2019-01-28] MEDS: ASCORBIC ACID 500 MG TAB PO SCH (07:24)
[2019-01-28] MEDS: ASPIRIN 325 MG TAB PO SCH (07:24)
[2019-01-28] MEDS: MULTIVITAMINS, THERA 1 EACH TAB PO SCH (07:24)
--- NOTE | 2019-01-28 08:36 | CONS ---
CONSULTATION DATE OF SERVICE: 01/27/2019. REASON FOR CONSULTATION: Left lower extremity cellulitis. HISTORY OF PRESENT ILLNESS: The patient is an 83-year-old female with past medical history significant for recurrent cellulitis of left lower extremity from the wound to the left lateral ankle area. The patient also has a history of right leg nonhealing wound in a right jetjx-ruf-vdca amputation back in 2006. The patient has been sent to the ER for evaluation of left lower extremity erythema and swelling. This patient who has been brought to the hospital by who the patient calls family friend. The patient was diagnosed with cellulitis and has been admitted to the hospital in addition to some psychiatric symptoms that the patient reported to the ER physician by that family friend. Patient denies any fever to me. However, she did have some chills. She has been complaining of pain to the left leg, which is slightly more swollen and red with a wound on the lateral border or laterally is currently healed. Patient describes the pain to the leg to be more of a throbbing in nature. She admitted still to be mild to moderate 5 to 6/10 with no radiation. There is currently no open wound or any drainage. The patient also complaining of pain to the right asfsj-weq-udxm stump area especially with pressure more of a pressure-like pain. Currently no open wound and the right leg is completely without any swelling or drainage. The patient has been started on vancomycin, Rocephin and admitted to the hospital. Infectious Disease was consulted for further recommendation regarding antibiotic therapy. REVIEW OF SYSTEMS: CONSTITUTIONAL: Positive for weakness, some chills. Denies having fever. EYES: No complaint. ENT: No complaint. RESPIRATORY: No complaint. CARDIOVASCULAR: No complaint. GENITOURINARY: No complaint. GASTROINTESTINAL: No complaint. MUSCULOSKELETAL: As per HPI. INTEGUMENTARY: As per HPI. PSYCHOLOGICAL: As per HPI. ENDOCRINE: No complaint. NEUROLOGIC: No complaint. PAST MEDICAL HISTORY: Peripheral vascular disease, pneumonia, left leg wound with a previous history of an MRSA wound infection, chronic venostasis of the right leg with osteomyelitis status post amputation. PAST SURGICAL HISTORY: Right nwjuo-vxx-qjon amputation, debridement of the right leg as well as left leg wound, hysterectomy. SOCIAL HISTORY: Denies smoking, drinking, or drug use. FAMILY HISTORY: No pertinent findings noticed. ALLERGIES: No known drug allergies. MEDICATION: Currently include the patient is on vancomycin. She is receiving 750 q.16h. The patient is on Zofran, Narcan, Theragran, melatonin, Ativan, Claritin, lactulose, Haldol, Neurontin, Lasix, Benadryl, Rocephin, Tums, Lipitor, aspirin, Tylenol. PHYSICAL EXAMINATION: Blood pressure 105/57 with a pulse of 72, temperature 97.9. She is 92% on room air. General description is an elderly female lying in bed in no distress. No tachypnea or accessory muscle of respiration use. HEENT: Shows no pallor or scleral icterus. Oral mucosa membrane is dry. No pharyngeal erythema or thrush. NECK: Trachea central. No thyromegaly. LUNGS: Unlabored breathing. Clear to auscultation anteriorly. No wheeze or crackle. HEART: S1, S2. Regular rate and rhythm. ABDOMEN: Soft, no tenderness, no rigidity. EXTREMITIES: Left leg did have a minimal redness, slightly warm to touch. Currently with no open wound, however, is tender to touch as well and no drainage. NEUROLOGICAL: Patient is awake, alert, oriented x2. Mood and affect normal. LABS: Hemoglobin 13.1, white count 8.1. BUN of 26, creatinine 0.65. Blood culture has been normal. Liver enzymes are normal. UA has been negative. Urine drug screen was negative. DIAGNOSTIC IMPRESSION AND PLAN: Patient admitted to the hospital with mental status changes likely multifactorial in this patient who did have a component of left lower extremity cellulitis. This patient did have a previous history for MRSA infection with question of possible MRSA or other gram-positive skin marcus, less likely gram-negative infection. PLAN: 1. Ted the area of redness left leg. 2. Vancomycin pharmacy to dose to target of 15 while watching the kidney function and monitor trough closely. 3. We will follow up on clinical condition and culture to further adjust medication if needed. Thank you for this consultation. Will follow this patient along with you. MMODL / IJN: [id number] /
[2019-01-28] MEDS: VANCOMYCIN 750 MG in SODIUM CHLORIDE 0.9% 250 ML IVPB SCH (14:13)
[2019-01-28] MEDS: SODIUM CHLORIDE 0.9% 1,000 ML IV SCH (15:10)
--- NOTE | 2019-01-28 17:04 | PN ---
PROGRESS NOTE DATE OF SERVICE: 01/28/19. PRESENTING COMPLAINT: Psychosis, cellulitis. INTERVAL HISTORY: This patient has got Alzheimer's dementia with psychosis. Seen by Psychiatry who started the patient on Haldol. Also being treated for left leg cellulitis. Some pain is improving. Did tolerate some diet. REVIEW OF SYSTEMS: Done for constitutional, cardiovascular, GI, pulmonary; relevant findings as above. MEDICATIONS: Reviewed that include IV ceftriaxone. PHYSICAL EXAMINATION: VITAL SIGNS: Temperature 98.1, pulse 66, respirations 20, blood pressure 130/68, pulse ox 95% on room. GENERAL APPEARANCE: Lying in bed, awake. EYES: Pupils equal. Conjunctivae normal. NECK: JVD not raised. Mass not palpable. RESPIRATORY: Effort normal. LUNGS: Diminished breath sounds. CARDIOVASCULAR: 1st and 2nd sounds normal. No edema. ABDOMEN: Soft, nontender. Liver and spleen not palpable. PSYCHIATRY: Patient able to answer simple questions then she trails off. DERMATOLOGICAL: Redness of the left lower extremity slightly better and right below- knee amputation. INVESTIGATIONS: Vancomycin trough 13.2. ASSESSMENT: 1. Acute left lower extremity cellulitis with breakdown of skin on the left lateral malleolus. 2. Alzheimer's dementia with psychosis as per Psychiatry. 3. Chronic obstructive pulmonary disease in an ex-smoker. 4. Medical debility. Patient needs help with transfer. 5. Primary osteoarthritis. 6. Right below-knee amputation. 7. Chronically prolapsed rectum. 8. Moderate cognitive impairment probably from Alzheimer's dementia. PLAN: Continue with local care. Will be appropriate for the patient's son to get guardianship. We will have case worker pursue the same. MMODL / IJN: [id number] /
[2019-01-28] MEDS: diphenhydrAMINE 25 MG CAP PO SCH (19:59)
[2019-01-28] MEDS: HALOPERIDOL 5 MG TAB PO SCH (19:59)
[2019-01-28] MEDS: GABAPENTIN 300 MG CAP PO SCH (20:00)
--- NOTE | 2019-01-28 22:43 | PN ---
PROGRESS NOTE DATE OF SERVICE: 01/28/2019. REASON FOR FOLLOW UP: Left lower extremity cellulitis. INTERVAL HISTORY: The patient is afebrile. She is more awake, alert today. She is breathing comfortably. Denies having any chest pain or cough. No abdominal pain. Left leg swelling and redness and pain has improved. PHYSICAL EXAMINATION: Blood pressure 124/62 with a pulse of 67, temperature 97.6; she is 94% on room air. General description is an elderly female lying in bed in no distress. Respiratory system: Unlabored breathing, clear to auscultation anteriorly. Heart: S1, S2. Regular rate and rhythm. Abdomen soft. Left leg swelling and redness has improved. LABS: Hemoglobin is 13, white count 8.1, creatinine 0.65. DIAGNOSTIC IMPRESSION AND PLAN: Patient admitted to the hospital with left lower extremity cellulitis. The patient did have a previous history of MRSA infection. Currently on vancomycin, to continue. Hopefully finish therapy with oral antibiotic on discharge. Continue supportive care. MMODL / IJN: [id number] /
[2019-01-29] MEDS: VANCOMYCIN 750 MG in SODIUM CHLORIDE 0.9% 250 ML IVPB SCH ×2 (05:37→20:44)
[2019-01-29] MEDS: MULTIVITAMINS, THERA 1 EACH TAB PO SCH (07:32)
[2019-01-29] MEDS: ASCORBIC ACID 500 MG TAB PO SCH (07:32)
[2019-01-29] MEDS: ASPIRIN 325 MG TAB PO SCH (07:32)
[2019-01-29] MEDS: FUROSEMIDE 20 MG TAB PO SCH (07:32)
[2019-01-29] MEDS: ATORVASTATIN 40 MG TAB PO SCH (07:32)
[2019-01-29] MEDS: LORATADINE 10 MG TAB PO SCH (07:32)
[2019-01-29] MEDS: SODIUM CHLORIDE 0.9% 1,000 ML IV SCH (17:00)
[2019-01-29] MEDS: GABAPENTIN 300 MG CAP PO SCH (19:57)
[2019-01-29] MEDS: diphenhydrAMINE 25 MG CAP PO SCH (19:57)
[2019-01-29] MEDS: HALOPERIDOL 5 MG TAB PO SCH (19:57)
--- NOTE | 2019-01-29 20:56 | PN ---
PROGRESS NOTE DATE OF SERVICE: 01/29/2019 PRESENTING COMPLAINT: Psychosis cellulitis. INTERVAL HISTORY: This patient has Alzheimer's dementia with psychosis. She was started on Haldol. She is also being treated for left leg cellulitis. Redness is getting better. Pain is getting better. The patient is tolerating a diet. toll transmission worker is involved. REVIEW OF SYSTEMS: Done for constitutional, cardiovascular, GI, pulmonary; relevant findings as above. CURRENT MEDICATIONS: Reviewed. They include IV ceftriaxone and vancomycin. PHYSICAL EXAMINATION: Temperature 97.8, pulse 80, respiration 16, blood pressure 119/59, pulse ox 93% on room air. GENERAL APPEARANCE: Lying in bed, awake. EYES: Pupils equal. Conjunctivae normal. NECK: JVD not raised. Mass not palpable. RESPIRATORY: Effort normal. LUNGS: Decreased breath sounds. CARDIOVASCULAR: First and second sounds normal. No edema. ABDOMEN: Soft, non-tender. Liver and spleen not palpable. PSYCHIATRY: Patient does answer questions. DERMATOLOGICAL: Redness of the left lower extremity improving. INVESTIGATIONS: No blood work from today. ASSESSMENT: 1. Acute left lower extremity cellulitis with breakdown of skin on the left lateral malleolus, clinically improving. 2. Alzheimer's dementia with psychosis as per Psychiatry. 3. Chronic obstructive pulmonary disease in an ex-smoker. 4. Medical debility. Patient needs help with transfers. 5. Primary osteoarthritis. 6. Right below-knee amputation, chronic. 7. Chronically prolapsed rectum. 8. Moderate cognitive impairment, probably from Alzheimer's dementia. 9. Patient lacking decision-making capacity. PLAN: Spoke to Maliha, social science teacher. She will get in touch with the patient's son and determine long-term care placement, as the patient is not able to take her own decisions. Son has DPO and can actually do the same. Adult Protective Services involved. Family will get in touch with them and go from there. MMODL / IJN: [id number] /
--- NOTE | 2019-01-30 00:28 | PN ---
PROGRESS NOTE DATE OF SERVICE: 01/29/2019. REASON FOR FOLLOWUP: Left leg cellulitis. INTERVAL HISTORY: The patient is currently afebrile. The patient is more awake, alert. She is breathing comfortably. Denies having any chest pain or any cough. No abdominal pain or pain to the left leg area. The redness is decreased. PHYSICAL EXAMINATION: Blood pressure 145/74 with a pulse of 83, temperature 98.5. Patient is 94% on room air. General description is an elderly female, lying in bed in no distress. Respiratory system: Unlabored breathing. Clear to auscultation anteriorly. Heart S1, S2. Regular rate. ABDOMEN: Soft. No tenderness. Left leg swelling and redness has improved. DIAGNOSTIC IMPRESSION AND PLAN: Patient with acute left lower extremity cellulitis. The patient did have previous history of MRSA infection. Patient currently covered with vancomycin. Overall improvement in cellulitis the with planning oral doxycycline on discharge. Repeat CBC and BMP tomorrow. Continue supportive care. MMODL / IJN: [id number] /
[2019-01-30] MEDS: ASCORBIC ACID 500 MG TAB PO SCH (07:43)
[2019-01-30] MEDS: FUROSEMIDE 20 MG TAB PO SCH (07:44)
[2019-01-30] MEDS: MULTIVITAMINS, THERA 1 EACH TAB PO SCH (07:44)
[2019-01-30] MEDS: ATORVASTATIN 40 MG TAB PO SCH (07:44)
[2019-01-30] MEDS: LORATADINE 10 MG TAB PO SCH (07:44)
[2019-01-30] MEDS: ASPIRIN 325 MG TAB PO SCH (07:44)
[2019-01-30 09:18] LABS: Basophils % (A) 1 %; Eosinophils # (A) 0.4 k/uL (0-0.7); Eosinophils % (A) 6 %; HCT 43.5 % (34.0-46.0); HGB 13.3 gm/dL (11.4-16.0); Hypochromasia Slight; Lymphocytes # (A) 1.4 k/uL (1.0-4.8); Lymphocytes % (A) 20 %; MCH 30.1 pg (25.0-35.0); MCHC 30.7 g/dL (31.0-37.0); Mean Platelet Volume 7.9; Monocytes # (A) 0.4 k/uL (0-1.0); Monocytes % (A) 6 %; Neutrophils # (A) 4.5 k/uL (1.3-7.7); Neutrophils % (A) 65 %; Platelet Count 401 k/uL (150-450); RBC 4.44 m/uL (3.80-5.40); RDW 14.4 % (11.5-15.5)
[2019-01-30 09:34] LABS: Anion Gap 4 mmol/L; Blood Urea Nitrogen 20 mg/dL (7-17); Calcium 9.2 mg/dL (8.4-10.2); Carbon Dioxide 29 mmol/L (22-30); Chloride 110 mmol/L (98-107); Glucose 75 mg/dL (74-99); Potassium 4.9 mmol/L (3.5-5.1); Sodium 143 mmol/L (137-145)
[2019-01-30] MEDS: VANCOMYCIN 750 MG in SODIUM CHLORIDE 0.9% 250 ML IVPB SCH (13:31)
--- NOTE | 2019-01-30 16:08 | PN ---
PROGRESS NOTE DATE OF SERVICE: 01/30/2019 REASON FOR FOLLOWUP: Left lower extremity cellulitis. INTERVAL HISTORY: The patient is currently afebrile. The patient is breathing comfortably. Denies having any chest pain or any cough or any worsening pain to the left leg area. PHYSICAL EXAMINATION: Blood pressure 121/61 with a pulse of 73, temperature 97.5. She is 92% on room air. General description is an elderly female lying in bed in no distress. RESPIRATORY SYSTEM: Unlabored breathing. Clear to auscultation anteriorly. HEART: S1, S2. Regular rate and rhythm. ABDOMEN: Soft. No tenderness. LABS: Hemoglobin 13.3, white count 7.0, BUN of 20, creatinine 0.57. Blood culture has been negative so far. DIAGNOSTIC IMPRESSION AND PLAN: Patient with acute left lower extremity cellulitis in a patient with a history of previous MRSA infection. Currently responding to the vancomycin. That will be transitioned to oral doxycycline mg b.i.d. for another 7 days to finish course of therapy. Continue with supportive care. MMODL / IJN: [id number] /
[2019-01-30] MEDS: SODIUM CHLORIDE 0.9% 1,000 ML IV SCH (16:47)
[2019-01-30] MEDS: diphenhydrAMINE 25 MG CAP PO SCH (20:45)
[2019-01-30] MEDS: GABAPENTIN 300 MG CAP PO SCH (20:45)
--- NOTE | 2019-01-30 21:53 | PN ---
PROGRESS NOTE DATE OF SERVICE: 01/30/2019 PRESENTING COMPLAINT: Cellulitis. INTERVAL HISTORY: This patient has Alzheimer's dementia with psychosis. She is comfortable, sitting up. She is breaking up pieces of pudding and putting them in a cup. She wants to feed the fishes. Left leg pain and redness much improved, on IV antibiotics. Did tolerate her diet. REVIEW OF SYSTEMS: Done for constitutional, cardiovascular, GI, pulmonary, dermatological; relevant findings as above. CURRENT MEDICATIONS: Reviewed. They include IV ceftriaxone, IV vancomycin. PHYSICAL EXAMINATION: Temperature 97.5, pulse 73, respiration 16, blood pressure 120/61, pulse ox 92% on room air. GENERAL APPEARANCE: Sitting up. Awake. EYES: Pupils equal. Conjunctivae normal. NECK: JVD not raised. Mass not palpable. RESPIRATORY: Effort normal. LUNGS: Decreased breath sounds. CARDIOVASCULAR: First and second sounds normal. No edema. ABDOMEN: Soft, non-tender. Liver and spleen not palpable. PSYCHIATRY: Patient is breaking small pieces of her pudding and putting them in a cup for the fishes to eat. She said the kids outside come in and take care of the fish. Otherwise very comfortable and very pleasant. DERMATOLOGICAL: Redness of the left lower extremity improving. INVESTIGATIONS: White count 7, hemoglobin 13.3. Potassium 4.9. ASSESSMENT: 1. Acute left lower extremity cellulitis, improving. 2. Alzheimer's dementia with psychosis. 3. Chronic obstructive pulmonary disease. 4. Smoker. 5. Medical debility. Patient needs help with transfers. 6. Primary osteoarthritis. 7. Right below-knee amputation, chronic. 8. Chronically prolapsed rectum. 9. Moderate cognitive impairment, probably from Alzheimer's dementia. 10.Patient does not have decision-making capacity. PLAN: At the social work professor meeting and case management meeting found out that the ECF does not want the patient to be on Haldol, for which Dr. Whitley, the psychiatrist, was consulted. He discontinued the same. The patient was due to go to the ECF, then the ECF called back saying that they did want the patient on a different medication. At this point, Tomer Avalos is being involved to check. Will proceed with social work professor/bottle caser pending discharge planning. Patient should be able to be switched over to a dose of doxycycline. About 45 minutes was spent today with over 25 to 30 minutes in discussion with the bottle caser and social work professor and the nurse. MMPADMINIL / IJN: [id number] /
[2019-01-31] MEDS: VANCOMYCIN 750 MG in SODIUM CHLORIDE 0.9% 250 ML IVPB SCH (05:32)
[2019-01-31] MEDS: FUROSEMIDE 20 MG TAB PO SCH (08:27)
[2019-01-31] MEDS: ATORVASTATIN 40 MG TAB PO SCH (08:27)
[2019-01-31] MEDS: ASPIRIN 325 MG TAB PO SCH (08:27)
[2019-01-31] MEDS: MULTIVITAMINS, THERA 1 EACH TAB PO SCH (08:27)
[2019-01-31] MEDS: ASCORBIC ACID 500 MG TAB PO SCH (08:27)
[2019-01-31] MEDS: LORATADINE 10 MG TAB PO SCH (08:27)
--- NOTE | 2019-01-31 12:30 | PN ---
PROGRESS NOTE DATE OF SERVICE: 01/31/2019 REASON FOR FOLLOWUP: Left lower extremity cellulitis. INTERVAL HISTORY: The patient is currently afebrile. The patient is breathing comfortably. Denies having any chest pain or any cough. No abdominal pain. The left leg pain, swelling and redness has improved, currently with no wound or any drainage. PHYSICAL EXAMINATION: Blood pressure is 131/70 with a pulse of 62, temperature is 97. She is 93% on room air. General description is an elderly female, lying in bed in no distress. RESPIRATORY SYSTEM: Unlabored breathing, clear to auscultation anteriorly. HEART: S1, S2. Regular rate and rhythm. ABDOMEN: Soft, no tenderness. EXTREMITIES: Left leg swelling and redness has resolved. LABS: No new labs been obtained today. DIAGNOSTIC IMPRESSION AND PLAN: Patient with acute left lower extremity cellulitis. Patient has shown clinical improvement. Currently on vancomycin to be transitioned to a short course of oral Zosyn 100 mg b.i.d. for about a week to continue course of therapy. Continue supportive care. MMODL / IJN: [id number] /
[2019-01-31 13:36] VITALS: BP 108/64; PULSE 80; RESP 15; TEMP 97.8
--- NOTE | 2019-01-31 15:09 | DS ---
DISCHARGE SUMMARY DATE OF ADMISSION: 01/27/2019 DATE OF DISCHARGE: 01/31/2019 FINAL DIAGNOSES: 1. Acute left lower extremity cellulitis. 2. Alzheimer's dementia with psychosis. 3. Chronic obstructive pulmonary disease in an ex-smoker. 4. Medical debility. Patient needs help with transfers. 5. Primary osteoarthritis. 6. Right below-knee amputation, chronic. 7. Chronically prolapsed rectum. 8. Moderate cognitive impairment from underlying Alzheimer's dementia. 9. Patient does not have decision-making capacity. 10.Patient's son, Dr. Call, is the DPOA. CONSULTATION: 1. Psychiatry, Dr. Banegas and Dr. Whitley. 2. Dr. Jiménez from [facility]. HOSPITAL COURSE: This patient presented with cellulitis left lower extremity, changed to vancomycin, greatly improved and topical care. Pain is much improved. Patient has underlying dementia, hence psychosis from the same, which is well controlled, off medications. Patient lacks decision-making capacity and patient's son, Jakub involved. PHYSICAL EXAMINATION: Temp 97.8, pulse 82, respiration 15, blood pressure 108/64, pulse ox 92% on room air. LUNGS: Clear. Left lower extremity redness greatly improved. DISCHARGE MEDICATIONS: 1. Centrum Silver 1 tablet p.o. daily. 2. Vitamin C 1000 mg p.o. daily. 3. Xyzal 5 mg p.o. daily. 4. Crestor 20 mg p.o. daily. 5. Silvadene cream topical b.i.d. p.r.n. 6. Tylenol 650 mg q.6 p.r.n. 7. Aspirin 81 mg p.o. daily. 8. Doxycycline 100 mg p.o. b.i.d., 14 capsules. 9. Neurontin 300 mg q.h.s. 10.Melatonin 3 mg p.o. q.h.s. p.r.n. DISPOSITION: [facility]. FOLLOWUP: Follow up with Dr. Mehta from [facility] after DC from the [facility]. Follow up with Dr. Caldwell at the [facility]. MMPADMINIL / ANNIEN: [id number] /
== END 2019-01-31 15:44 | DRG 603 ==
LOC: EC 14:33 → INTOOBSV 16:45 → 4MS4W 16:45 → OBSVTOIN 01-27 16:20
PROVIDERS: ADMIT Hospitalist; ATTEND Hospitalist
DX: L03.116 Cellulitis of left lower limb (principal); F02.81 Dementia in other diseases classified elsewhere, unspecified severity, with behavioral disturbance; G30.9 Alzheimer's disease, unspecified; I73.9 Peripheral vascular disease, unspecified; J44.9 Chronic obstructive pulmonary disease, unspecified; M19.91 Primary osteoarthritis, unspecified site; N81.6 Rectocele; I87.8 Other specified disorders of veins; Z79.82 Long term (current) use of aspirin; Z79.899 Other long term (current) drug therapy; Z99.3 Dependence on wheelchair; Z90.710 Acquired absence of both cervix and uterus; Z89.511 Acquired absence of right leg below knee; Z86.14 Personal history of Methicillin resistant Staphylococcus aureus infection; Z87.891 Personal history of nicotine dependence; Z87.01 Personal history of pneumonia (recurrent); Z98.42 Cataract extraction status, left eye; Z98.41 Cataract extraction status, right eye; Z96.1 Presence of intraocular lens; Z80.0 Family history of malignant neoplasm of digestive organs; Z82.49 Family history of ischemic heart disease and other diseases of the circulatory system
CPT/HCPCS: 36415; 70450; 71046; 80048; 80053; 80202; 80306; 81003; 82565; 85025; 85610; 85730; 93005; 96361; 96365; 96375; 99285